=== PATIENT | female | born 1935 | race Caucasian/White ===

== ENCOUNTER 2017-02-16 19:05 | Emergency (ER) | payer MEDICARE, BC ==
[2017-02-16 21:00] VITALS: BP 126/82
--- NOTE | 2017-02-16 21:21 | EDM.PDOC ---
[id number]: FELL, RT HIP PAIN SWOLLEN, [id number] Time Seen by Provider: 02/16/17 19:35 Source of Information: Reports: Patient, Family, Assisted Records History Limitations: Reports: No Limitations - History of Present Illness INITIAL COMMENTS - FREE TEXT/NARRATIVE: ED with c/o low back and right hip pain for approximately 2 weeks. Clinic appointment this week but Nurse at [facility] noted swelling to right hip tonight. Son notes failing status past few months, generalized weakness. Lower Back Pain Score (Numeric/FACES): 2 - Related Data Allergies Allergy/AdvReac Type Severity Reaction Status Date / Time No Known Allergies Allergy Verified 02/23/17 19:08 Home Meds: Home Meds Anastrozole 1 mg PO DAILY 02/07/16 [History] OLANZapine [ZyPREXA] 2.5 mg PO BEDTIME 02/07/16 [History] Carbidopa/Levodopa [Carbidopa-Levo 25-100 MG ODT] 1 tab PO TID 02/16/17 [History ] Acetaminophen 500 mg PO QID PRN 02/23/17 [History] Aspirin [Halfprin] 81 mg PO DAILY 02/23/17 [History] Past Medical History Cardiovascular History: Reports: Afib, Hypertension Genitourinary History: Reports: Urinary Incontinence Musculoskeletal History: Reports: Osteoporosis Neurological History: Reports: Other (See Below) Other Neuro History: Tarrdive dyskinesia Psychiatric History: Reports: Schizophrenia Oncologic (Cancer) History: Reports: Breast Dermatologic History: Reports: Other (See Below) Other Dermatologic History: 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 s/p right mastectomy - Infectious Disease History Infectious Disease History: Reports: Chicken Pox, Measles, Mumps, Pertussis ( Whooping Cough) - Past Surgical History HEENT Surgical History: Reports: Adenoidectomy, Tonsillectomy Musculoskeletal Surgical History: Reports: Hip Replacement Oncologic Surgical History: Reports: Mastectomy, Other (See Below) Social & Family History - Family History Family Medical History: Noncontributory - Tobacco Use Smoking Status *Q: Never Smoker Second Hand Smoke Exposure: No - Caffeine Use Caffeine Use: Reports: None - Recreational Drug Use Recreational Drug Use: No ED ROS GENERAL - Review of Systems Review Of Systems: See Below Constitutional: Reports: No Symptoms HEENT: Reports: No Symptoms Respiratory: Reports: No Symptoms Cardiovascular: Reports: No Symptoms GI/Abdominal: Reports: No Symptoms Musculoskeletal: Reports: Back Pain, Joint Pain (right hip) Skin: Reports: No Symptoms Neurological: Reports: No Symptoms (declining health person), Weakness ED EXAM,LOWER BACK PAIN/INJURY - Physical Exam Exam: See Below Exam Limited By: No Limitations General Appearance: Alert, Mild Distress (with movment and weight bearing), Thin Eye Exam: Bilateral Eye: Normal Inspection Ears: Normal External Exam Nose: Normal Inspection Throat/Mouth: Normal Inspection Head: Atraumatic, Normocephalic Respiratory/Chest: No Respiratory Distress, Decreased Breath Sounds Cardiovascular: Normal Peripheral Pulses GI/Abdominal: Normal Bowel Sounds, Soft, Non-Tender Back Exam: Normal Inspection Extremities: Other (no bruising or deformity to right hip well healed surgical scar from prior replacement). No: Joint Swelling, Limited Range of Motion Neurological: Alert, Oriented x 3, Difficulty Walking, Other (upper extremity tremor, hx parkinson's, responses slow) Psychiatric: Normal Affect, Normal Mood Skin Exam: Warm, Dry, Intact, Normal Color Course - Vital Signs Last Recorded V/S: Last Vital Signs Temp 98.2 F 02/16/17 20:59 Pulse 83 02/16/17 20:59 Resp 18 02/16/17 20:59 BP 126/82 02/16/17 20:59 Pulse Ox 96 02/16/17 20:59 - Radiology Interpretation Free Text/Narrative:: Right hip no acute fracture, THoraco-lumbar compression fractures, undetermined age Departure - Departure Time of Disposition: 21:17 Disposition: DC/Tfer to [facility] [place] [facility] Condition: Fair Clinical Impression: Right hip pain - Discharge Information Referrals: PCP,None [Primary Care Provider] - Forms: ED Department Discharge Additional Instructions: Resume prior detention orders follow up with scheduled appointment, Xrays negative for hip pathology, further eval and management of hip pain and weakness
== END 2017-02-16 21:25 ==
LOC: DL.ED 19:05
DX: M25.551 Pain in right hip (principal); I48.91 Unspecified atrial fibrillation; I10 Essential (primary) hypertension; M81.0 Age-related osteoporosis without current pathological fracture; Z90.49 Acquired absence of other specified parts of digestive tract; Z79.899 Other long term (current) drug therapy; Z98.890 Other specified postprocedural states; Z96.649 Presence of unspecified artificial hip joint
CPT/HCPCS: 72100; 99283

== ENCOUNTER 2017-02-20 16:01 | Observation (INO) | payer MEDICARE, BC ==
[2017-02-20] MEDS ORDERED: Sodium Chloride 0.9% 10 ML Syringe FLUSH PRN (16:43)
--- NOTE | 2017-02-20 17:28 | PCM.HP ---
H&P History of Present Illness - General Date of Service: 02/20/17 Admit Problem/Dx: Admission Diagnosis/Problem Admission Diagnosis/Problem Weakness Source of Information: Patient, Family (son) - History of Present Illness Initial Comments - Free Text/Narative: the patient is an 82-year-old lady who has a history of Parkinson's disease. She has been living in an assisted living facility. She has been walking with a walker She has had at least 2 episodes of falls in the past 2 weeks. One of them was while outside with the son. Another fall happened today. the patient has been getting weaker in the past few weeks. it appeared that she cannot live safely in an assisted living environment anymore. After the first fall the patient had an ER visit where there was no hip or pelvic fracture noted. There was a hematoma noted which apparently has been improving. The patient denies chest pain, shortness of breath. no urinary burning, no fever or chills. - Related Data Allergies/Adverse Reactions: Allergies Allergy/AdvReac Type Severity Reaction Status Date / Time No Known Allergies Allergy Verified 02/20/17 16:59 Home Medications: Home Meds Anastrozole 1 mg PO DAILY 02/07/16 [History] OLANZapine [ZyPREXA] 2.5 mg PO BEDTIME 02/07/16 [History] Carbidopa/Levodopa [Carbidopa-Levo 25-100 MG ODT] 1 tab PO TID 02/16/17 [History ] Past Medical History Cardiovascular History: Reports: Afib, Hypertension Genitourinary History: Reports: Urinary Incontinence Musculoskeletal History: Reports: Osteoporosis Neurological History: Reports: Other (See Below) Other Neuro History: Tarrdive dyskinesia Psychiatric History: Reports: Schizophrenia Oncologic (Cancer) History: Reports: Breast Dermatologic History: Reports: Other (See Below) Other Dermatologic History: 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 s/p right mastectomy - Infectious Disease History Infectious Disease History: Reports: Chicken Pox, Measles, Mumps, Pertussis ( Whooping Cough) - Past Surgical History HEENT Surgical History: Reports: Adenoidectomy, Tonsillectomy Musculoskeletal Surgical History: Reports: Hip Replacement Oncologic Surgical History: Reports: Mastectomy, Other (See Below) Social & Family History - Family History Family Medical History: Noncontributory - Tobacco Use Smoking Status *Q: Never Smoker Second Hand Smoke Exposure: No - Caffeine Use Caffeine Use: Reports: None - Recreational Drug Use Recreational Drug Use: No H&P Review of Systems - Review of Systems: Review Of Systems: See Below General: Denies: Fever Pulmonary: Denies: Shortness of Breath Cardiovascular: Denies: Chest Pain Gastrointestinal: Denies: Abdominal Pain Genitourinary: Denies: Dysuria Musculoskeletal: Reports: Other (complaining of left hip pain, low back pain in the mid area. The pain is worse with movements). Denies: Neck Pain Exam - Exam Exam: See Below - Vital Signs Weight: 39.916 kg - Exam General: Alert, Oriented (to place and person), Other (cachectic) Neck: Supple Lungs: Clear to Auscultation, Normal Respiratory Effort Cardiovascular: Regular Rate, Regular Rhythm GI/Abdominal Exam: Normal Bowel Sounds, Soft, Non-Tender Back Exam: Paraspinal Tenderness, Other (low back tenderness) Extremities: No Pedal Edema Skin: Warm, Dry Neurological: Other (tremor) Neuro Extensive - Mental Status: Alert Psychiatric: Alert, Normal Affect, Normal Mood - Patient Data Lab Results Last 24 hrs: Laboratory Results - last 24 hr 02/20/17 Range/Units 17:05 WBC 4.8 L (5.0-10.0) 10^3/uL RBC 3.53 L (4.2-5.4) 10^6/uL Hgb 10.6 L (12.0-16.0) g/dL Hct 33.4 L (37.0-47.0) % MCV 94.6 (80-100) fL MCH 30.0 (27.0-34.0) pg MCHC 31.7 L (33.0-35.0) g/dL Plt Count 214 (150-450) 10^3/uL Neut % (Auto) 79.7 H (42.2-75.2) % Lymph % (Auto) 10.1 L (20.5-50.1) % [place] % (Auto) 9.0 H (2-8) % Eos % (Auto) 0.8 L (1.0-3.0) % Baso % (Auto) 0.4 (0.0-1.0) % Result Diagrams: 02/20/17 17:05 *Q Meaningful Use (ADM) - VTE *Q VTE Criteria *Q: - Stroke *Q Stroke Criteria *Q: - AMI *Q AMI Criteria *Q: - Problem List (1) Weakness SNOMED Code(s): 88316761 ICD Code: R53.1 - WEAKNESS Status: Acute Current Visit: Yes (2) Parkinsons disease SNOMED Code(s): 82805216 ICD Code: G20 - PARKINSON'S DISEASE Status: Acute Current Visit: Yes Problem List Initiated/Reviewed/Updated: Yes Orders Last 24hrs: Active Orders 24 hr Category Date Time Status Patient Status [ADT] Routine ADT 02/20/17 16:44 Active Antiembolic Devices [RC] PER UNIT ROUTINE Care 02/20/17 16:46 Active Oxygen Therapy [RC] PRN Care 02/20/17 16:44 Active Peripheral IV Care [RC] . DIRECTED Care 02/20/17 16:46 Active Up With Assistance [RC] ASDIRECTED Care 02/20/17 16:43 Active VTE/DVT Education [RC] PER UNIT ROUTINE Care 02/20/17 16:44 Active Vital Signs [RC] Q4H Care 02/20/17 16:44 Active OT Evaluation and Treatment [CONS] Routine Cons 02/20/17 16:51 Active PT Evaluation and Treatment [CONS] Routine Cons 02/20/17 16:51 Active Pureed Diet [DIET] Diet 02/20/17 Breakfast Ordered Hip Min 2V w Pelvis Bi [CR] Routine Exams 02/20/17 17:25 Ordered BASIC METABOLIC PANEL,BMP [CHEM] AM Lab 02/21/17 05:15 Ordered BASIC METABOLIC PANEL,BMP [CHEM] Routine Lab 02/20/17 17:05 Received CBC WITH AUTO DIFF [HEME] AM Lab 02/21/17 05:15 Ordered UA W/MICROSCOPIC [URIN] Routine Lab 02/20/17 16:51 Uncollected Acetaminophen [Tylenol] Med 02/20/17 16:43 Active 650 mg PO Q4H PRN Anastrozole [Anastrozole] Med 02/21/17 09:00 Ordered 1 mg PO DAILY Carbidopa/Levodopa [Carbidopa-Levo 25-100 MG ODT] Med 02/20/17 21:00 Ordered 1 tab PO TID Heparin Sodium Med 02/20/17 22:00 Active 5,000 units SUBCUT Q8HR OLANZapine [ZyPREXA] Med 02/20/17 21:00 Ordered 2.5 mg PO BEDTIME Sodium Chloride 0.9% [Saline Flush] Med 02/20/17 16:43 Active 10 ml FLUSH ASDIRECTED PRN Antiembolic Hose [OM.PC] Per Unit Routine Oth 02/20/17 16:45 Ordered Peripheral IV Insertion Adult [OM.PC] Routine Oth 02/20/17 16:43 Ordered Saline Lock Insert [OM.PC] Routine Oth 02/20/17 16:43 Ordered Resuscitation Status Routine Resus Stat 02/20/17 16:43 Ordered Medication Orders Acetaminophen (Tylenol) 650 mg PO Q4H PRN PRN Reason: Pain (Mild 1-3)/fever Heparin Sodium (Porcine) (Heparin Sodium) 5,000 units SUBCUT Q8HR BRIAN Non-Formulary Medication (Anastrozole [Anastrozole]) 1 mg PO DAILY BRIAN Non-Formulary Medication (Carbidopa/Levodopa [Carbidopa-Levo 25-100 Mg Odt]) 1 tab PO TID BRIAN Non-Formulary Medication (Olanzapine [Zyprexa]) 2.5 mg PO BEDTIME BRIAN Sodium Chloride (Saline Flush) 10 ml FLUSH ASDIRECTED PRN PRN Reason: Keep Vein Open Assessment/Plan Comment:: the patient is an 82-year-old lady with a history of Parkinson's disease who is normally walking with a walker, lives in an assisted living facility The patient presented with multiple episodes of falling, increasing weakness It does not appear that the patient is safe living independently in an assisted living facility at this point. We will do a workup to evaluate for reversible causes of weakness and progressive and unstable gait It was felt that there might be a orthostatic component. We will hold the patient's metoprolol We will check electrolytes, check for anemia, obtain x-ray of the bilateral hip and pelvis to rule out fracture. Continue treatment for Parkinson's disease with Sinemet History of breast cancer continue arimidex The patient does not appear to have a focal motor or sensory deficit, acute or subacute stroke is less likely. Will have PT OT evaluation and treatment DVT prophylaxis with subcutaneous heparin discussed with Dr. Valentin
[2017-02-20 17:38] LABS: CHLORIDE,CL 105 mmol/L (101-111); SODIUM,NA 138 mmol/L (135-145)
[2017-02-20] MEDS: OLANZapine 5 MG Tab PO SCH (20:46)
[2017-02-20] MEDS: Carbidopa/Levodopa 25-100 MG Tab PO SCH (20:46)
[2017-02-20] MEDS: Acetaminophen 325 MG Tab PO PRN (20:47)
[2017-02-20] MEDS: Heparin Sodium 5,000 Units/ML Vial SUBCUT SCH (22:03)
[2017-02-21] MEDS: Acetaminophen 325 MG Tab PO PRN ×2 (06:06→11:19)
[2017-02-21] MEDS: Heparin Sodium 5,000 Units/ML Vial SUBCUT SCH ×3 (06:15→22:10)
[2017-02-21 06:56] LABS: CHLORIDE,CL 105 mmol/L (101-111); SODIUM,NA 140 mmol/L (135-145)
[2017-02-21] MEDS: ANASTROZOLE 1 MG PO SCH (09:00)
[2017-02-21] MEDS: Carbidopa/Levodopa 25-100 MG Tab PO SCH ×3 (09:00→20:20)
--- NOTE | 2017-02-21 10:42 | PCM.PN ---
- General Info Date of Service: 02/21/17 Admission Dx/Problem (Free Text): Admission Diagnosis/Problem Admission Diagnosis/Problem Weakness Subjective Update: Remained stable overnight. Has been eating this morning. Continues to have a moderate pain in the low back, left hip. She has not been out of bed yet. No chest pain, no abdominal pain. Functional Status: Reports: Pain Controlled - Review of Systems General: Denies: Fever Pulmonary: Denies: Shortness of Breath Cardiovascular: Denies: Chest Pain Gastrointestinal: Denies: Abdominal Pain Neurological: Denies: Confusion - Patient Data Vitals - Most Recent: Last Vital Signs Temp 36.5 C 02/21/17 08:00 Pulse 68 02/21/17 08:00 Resp 20 02/21/17 08:00 BP 123/65 02/21/17 08:00 Pulse Ox 95 02/21/17 08:00 Weight - Most Recent: 39.916 kg I&O - Last 24 Hours: Intake & Output 02/20/17 02/21/17 02/21/17 22:59 06:59 14:59 Intake Total 240 Output Total 400 400 Balance -160 -400 Lab Results Last 24 Hours: Laboratory Results - last 24 hr 02/20/17 02/20/17 02/20/17 Range/Units 17:05 17:05 19:10 WBC 4.8 L (5.0-10.0) 10^3/uL RBC 3.53 L (4.2-5.4) 10^6/uL Hgb 10.6 L (12.0-16.0) g/dL Hct 33.4 L (37.0-47.0) % MCV 94.6 (80-100) fL MCH 30.0 (27.0-34.0) pg MCHC 31.7 L (33.0-35.0) g/dL Plt Count 214 (150-450) 10^3/uL Neut % (Auto) 79.7 H (42.2-75.2) % Lymph % (Auto) 10.1 L (20.5-50.1) % [place] % (Auto) 9.0 H (2-8) % Eos % (Auto) 0.8 L (1.0-3.0) % Baso % (Auto) 0.4 (0.0-1.0) % Sodium 138 (135-145) mmol/L Potassium 4.5 (3.6-5.0) mmol/L Chloride 105 (101-111) mmol/L Carbon Dioxide 26.0 (21.0-31.0) mmol/L Anion Gap 11.5 BUN 23 H (7-18) mg/dL Creatinine 0.6 (0.6-1.3) mg/dL Est Cr Clr Drug Dosing 46.34 mL/min Estimated GFR (MDRD) > 60 Glucose 93 (74-105) mg/dL Calcium 9.0 (8.4-10.2) mg/dl Urine Color Dark yellow (YELLOW) Urine Appearance Slightly cloudy (CLEAR) Urine pH 6.5 (5.0-9.0) Ur Specific [place] 1.015 (1.005-1.030) Urine Protein Negative (NEGATIVE) Urine Glucose (UA) Negative (NEGATIVE) Urine Ketones 15 H (NEGATIVE) Urine Occult Blood Trace-intact H (NEGATIVE) Urine Nitrite Negative (NEGATIVE) Urine Bilirubin Negative (NEGATIVE) Urine Urobilinogen 0.2 (0.2-1.0) mg/dL Ur Leukocyte Esterase Negative (NEGATIVE) Urine RBC 5-10 H /HPF Urine WBC 0-5 (0-5/HPF) /HPF Ur Epithelial Cells Few /HPF Amorphous Sediment Rare (0/HPF) /HPF Urine Bacteria Rare (0-FEW/HPF) /HPF Urine Mucus Rare /LPF 02/21/17 02/21/17 Range/Units 06:23 06:23 WBC 3.9 L (5.0-10.0) 10^3/uL RBC 3.40 L (4.2-5.4) 10^6/uL Hgb 10.2 L (12.0-16.0) g/dL Hct 32.5 L (37.0-47.0) % MCV 95.6 (80-100) fL MCH 30.0 (27.0-34.0) pg MCHC 31.4 L (33.0-35.0) g/dL Plt Count 191 (150-450) 10^3/uL Neut % (Auto) 70.9 (42.2-75.2) % Lymph % (Auto) 14.9 L (20.5-50.1) % [place] % (Auto) 11.1 H (2-8) % Eos % (Auto) 2.3 (1.0-3.0) % Baso % (Auto) 0.8 (0.0-1.0) % Sodium 140 (135-145) mmol/L Potassium 4.2 (3.6-5.0) mmol/L Chloride 105 (101-111) mmol/L Carbon Dioxide 27.0 (21.0-31.0) mmol/L Anion Gap 12.2 BUN 20 H (7-18) mg/dL Creatinine 0.5 L (0.6-1.3) mg/dL Est Cr Clr Drug Dosing 55.61 mL/min Estimated GFR (MDRD) > 60 Glucose 80 (74-105) mg/dL Calcium 8.5 (8.4-10.2) mg/dl Urine Color (YELLOW) Urine Appearance (CLEAR) Urine pH (5.0-9.0) Ur Specific [place] (1.005-1.030) Urine Protein (NEGATIVE) Urine Glucose (UA) (NEGATIVE) Urine Ketones (NEGATIVE) Urine Occult Blood (NEGATIVE) Urine Nitrite (NEGATIVE) Urine Bilirubin (NEGATIVE) Urine Urobilinogen (0.2-1.0) mg/dL Ur Leukocyte Esterase (NEGATIVE) Urine RBC /HPF Urine WBC (0-5/HPF) /HPF Ur Epithelial Cells /HPF Amorphous Sediment (0/HPF) /HPF Urine Bacteria (0-FEW/HPF) /HPF Urine Mucus /LPF Med Orders - Current: Current Medications Acetaminophen (Tylenol) 650 mg PO Q4H PRN PRN Reason: Pain (Mild 1-3)/fever Last Admin: 02/21/17 06:06 Dose: 650 mg Carbidopa/Levodopa (Sinemet 25-100 Mg) 1 tab PO TID [facility] Last Admin: 02/20/17 20:46 Dose: 1 tab Heparin Sodium (Porcine) (Heparin Sodium) 5,000 units SUBCUT Q8HR [facility] Last Admin: 02/21/17 06:15 Dose: Not Given Anastrozole 1 Mg 1 mg PO DAILY [facility] Olanzapine (Zyprexa) 2.5 mg PO BEDTIME [facility] Last Admin: 02/20/17 20:46 Dose: 2.5 mg Sodium Chloride (Saline Flush) 10 ml FLUSH ASDIRECTED PRN PRN Reason: Keep Vein Open - Exam General: Alert, Oriented, Other (cachectic) Neck: Supple Lungs: Clear to Auscultation, Normal Respiratory Effort Cardiovascular: Regular Rate, Regular Rhythm GI/Abdominal Exam: Normal Bowel Sounds Extremities: No Pedal Edema Neurological: Other (tremor) Psy/Mental Status: Alert, Normal Affect, Normal Mood - Problem List & Annotations (1) Weakness SNOMED Code(s): 67821720 Code(s): R53.1 - WEAKNESS Status: Acute Current Visit: Yes (2) Parkinsons disease SNOMED Code(s): 33245092 Code(s): G20 - PARKINSON'S DISEASE Status: Acute Current Visit: Yes - Problem List Review Problem List Initiated/Reviewed/Updated: Yes - My Orders Last 24 Hours: My Active Orders 02/20/17 16:43 Up With Assistance [RC] ASDIRECTED Acetaminophen [Tylenol] 650 mg PO Q4H PRN Sodium Chloride 0.9% [Saline Flush] 10 ml FLUSH ASDIRECTED PRN Peripheral IV Insertion Adult [OM.PC] Routine Saline Lock Insert [OM.PC] Routine 02/20/17 16:44 Patient Status [ADT] Routine Oxygen Therapy [RC] PRN VTE/DVT Education [RC] PER UNIT ROUTINE Vital Signs [RC] Q4H 02/20/17 16:45 Antiembolic Hose [OM.PC] Per Unit Routine 02/20/17 16:46 Antiembolic Devices [RC] PER UNIT ROUTINE 02/20/17 16:51 OT Evaluation and Treatment [CONS] Routine PT Evaluation and Treatment [CONS] Routine 02/20/17 18:35 Resuscitation Status Routine 02/20/17 21:00 Carbidopa/Levodopa [Sinemet 25-100 mg] 1 tab PO TID OLANZapine [ZyPREXA] 2.5 mg PO BEDTIME 02/20/17 22:00 Heparin Sodium 5,000 units SUBCUT Q8HR 02/21/17 09:00 Anastrozole [Anastrozole] 1 mg PO DAILY - Plan Plan:: the patient is an 82-year-old lady with a history of Parkinson's disease who is normally walking with a walker, lives in an assisted living facility The patient presented with multiple episodes of falling, increasing weakness It does not appear that the patient is safe living independently in an assisted living facility at this point. It was felt that there might be a orthostatic component. We will hold the patient's metoprolol x-ray of the bilateral hip, pelvis and L spine showed no fracture. Continue treatment for Parkinson's disease with Sinemet History of breast cancer continue arimidex Will have PT OT evaluation and treatment DVT prophylaxis with subcutaneous heparin
[2017-02-21] MEDS: Acetaminophen Soln 160 MG/5 ML UD Cup PO PRN (20:20)
[2017-02-21] MEDS: OLANZapine 5 MG Tab PO SCH (20:20)
[2017-02-21] MEDS: Polyethylene Glycol 3350 Powder 17 GM Packet PO SCH (20:21)
[2017-02-22] MEDS: Heparin Sodium 5,000 Units/ML Vial SUBCUT SCH ×3 (05:50→21:48)
[2017-02-22] MEDS: Carbidopa/Levodopa 25-100 MG Tab PO SCH ×3 (09:15→21:45)
[2017-02-22] MEDS: ANASTROZOLE 1 MG PO SCH (09:16)
[2017-02-22] MEDS: Polyethylene Glycol 3350 Powder 17 GM Packet PO SCH (10:20)
--- NOTE | 2017-02-22 11:02 | PCM.PN ---
- General Info Date of Service: 02/22/17 Admission Dx/Problem (Free Text): Admission Diagnosis/Problem Admission Diagnosis/Problem Weakness Subjective Update: Remained stable overnight. Continues to have a moderate pain in left hip. No chest pain, no abdominal pain. Functional Status: Reports: Pain Controlled - Review of Systems General: Denies: Fever Pulmonary: Denies: Shortness of Breath Cardiovascular: Denies: Chest Pain, Edema Genitourinary: Denies: Dysuria - Patient Data Vitals - Most Recent: Last Vital Signs Temp 37.1 C 02/22/17 08:29 Pulse 88 02/22/17 08:29 Resp 20 02/22/17 08:29 BP 132/61 02/22/17 08:29 Pulse Ox 98 02/22/17 08:29 Weight - Most Recent: 39.916 kg I&O - Last 24 Hours: Intake & Output 02/21/17 02/22/17 02/22/17 22:59 06:59 14:59 Intake Total 240 Output Total 200 200 Balance 40 -200 Med Orders - Current: Current Medications Acetaminophen (Tylenol) 650 mg PO Q4H PRN PRN Reason: Pain (Mild 1-3)/fever Last Admin: 02/21/17 11:19 Dose: 650 mg Acetaminophen (Tylenol Solution) 640 mg PO Q4H PRN PRN Reason: PAIN Last Admin: 02/21/17 20:20 Dose: 640 mg Carbidopa/Levodopa (Sinemet 25-100 Mg) 1 tab PO TID [facility] Last Admin: 02/22/17 09:15 Dose: 1 tab Heparin Sodium (Porcine) (Heparin Sodium) 5,000 units SUBCUT Q8HR [facility] Last Admin: 02/22/17 05:50 Dose: Not Given Anastrozole 1 Mg 1 mg PO DAILY [facility] Last Admin: 02/22/17 09:16 Dose: 1 mg Olanzapine (Zyprexa) 2.5 mg PO BEDTIME [facility] Last Admin: 02/21/17 20:20 Dose: 2.5 mg Polyethylene Glycol (Miralax) 17 gm PO DAILY [facility] Last Admin: 02/22/17 10:20 Dose: Not Given Discontinued Medications Sodium Chloride (Saline Flush) 10 ml FLUSH ASDIRECTED PRN PRN Reason: Keep Vein Open Last Admin: 02/21/17 20:26 Dose: 10 ml - Exam General: Alert, Oriented Neck: Supple Lungs: Clear to Auscultation, Normal Respiratory Effort Cardiovascular: Regular Rate, Regular Rhythm GI/Abdominal Exam: Normal Bowel Sounds, Soft, Non-Tender Extremities: No Pedal Edema Neurological: Other (tremor) Psy/Mental Status: Alert, Normal Affect, Normal Mood - Problem List & Annotations (1) Weakness SNOMED Code(s): 25388621 Code(s): R53.1 - WEAKNESS Status: Acute Current Visit: Yes (2) Parkinsons disease SNOMED Code(s): 88458145 Code(s): G20 - PARKINSON'S DISEASE Status: Acute Current Visit: Yes - Problem List Review Problem List Initiated/Reviewed/Updated: Yes - My Orders Last 24 Hours: My Active Orders 02/21/17 18:13 Acetaminophen [Tylenol Solution] 640 mg PO Q4H PRN 02/21/17 21:00 Polyethylene Glycol 3350 [MiraLAX] 17 gm PO DAILY 02/22/17 08:51 Discontinue Saline Lock [Peripheral IV Discontinue] [OM.PC] Routine - Plan Plan:: the patient is an 82-year-old lady with a history of Parkinson's disease who is normally walking with a walker, lives in an assisted living facility The patient presented with multiple episodes of falling, increasing weakness It does not appear that the patient is safe living independently in an assisted living facility at this point. It was felt that there might be a orthostatic component. We will hold the patient's metoprolol x-ray of the bilateral hip, pelvis and L spine showed no fracture. Pain is likely due to bruise, arthritis Will have PT OT evaluation and treatment Continue treatment for Parkinson's disease with Sinemet History of breast cancer continue arimidex DVT prophylaxis with subcutaneous heparin
[2017-02-22] MEDS: OLANZapine 5 MG Tab PO SCH (21:45)
[2017-02-23] MEDS: Heparin Sodium 5,000 Units/ML Vial SUBCUT SCH ×2 (05:40→15:00)
[2017-02-23] MEDS: Polyethylene Glycol 3350 Powder 17 GM Packet PO SCH (08:53)
[2017-02-23] MEDS: Acetaminophen Soln 160 MG/5 ML UD Cup PO PRN (08:53)
[2017-02-23] MEDS: Carbidopa/Levodopa 25-100 MG Tab PO SCH ×2 (08:53→15:00)
[2017-02-23] MEDS: ANASTROZOLE 1 MG PO SCH (09:00)
--- NOTE | 2017-02-23 11:41 | PCM.PN ---
- General Info Date of Service: 02/23/17 Admission Dx/Problem (Free Text): Admission Diagnosis/Problem Admission Diagnosis/Problem Weakness Subjective Update: Remained stable. pain is improving. No chest pain, no abdominal pain. - Review of Systems General: Reports: Weakness. Denies: Fever Pulmonary: Denies: Shortness of Breath Cardiovascular: Denies: Chest Pain Gastrointestinal: Denies: Abdominal Pain Genitourinary: Denies: Dysuria - Patient Data Vitals - Most Recent: Last Vital Signs Temp 36.4 C 02/23/17 11:00 Pulse 79 02/23/17 11:00 Resp 18 02/23/17 11:00 BP 89/51 L 02/23/17 11:00 Pulse Ox 97 02/23/17 11:00 Weight - Most Recent: 39.916 kg I&O - Last 24 Hours: Intake & Output 02/22/17 02/23/17 02/23/17 22:59 06:59 14:59 Intake Total 150 Balance 150 Med Orders - Current: Current Medications Acetaminophen (Tylenol) 650 mg PO Q4H PRN PRN Reason: Pain (Mild 1-3)/fever Last Admin: 02/21/17 11:19 Dose: 650 mg Acetaminophen (Tylenol Solution) 640 mg PO Q4H PRN PRN Reason: PAIN Last Admin: 02/23/17 08:53 Dose: 640 mg Carbidopa/Levodopa (Sinemet 25-100 Mg) 1 tab PO TID [facility] Last Admin: 02/23/17 08:53 Dose: 1 tab Heparin Sodium (Porcine) (Heparin Sodium) 5,000 units SUBCUT Q8HR [facility] Last Admin: 02/23/17 05:40 Dose: Not Given Anastrozole 1 Mg 1 mg PO DAILY [facility] Last Admin: 02/23/17 09:00 Dose: 1 mg Olanzapine (Zyprexa) 2.5 mg PO BEDTIME [facility] Last Admin: 02/22/17 21:45 Dose: 2.5 mg Polyethylene Glycol (Miralax) 17 gm PO DAILY [facility] Last Admin: 02/23/17 08:53 Dose: 17 gm Discontinued Medications Sodium Chloride (Saline Flush) 10 ml FLUSH ASDIRECTED PRN PRN Reason: Keep Vein Open Last Admin: 02/21/17 20:26 Dose: 10 ml - Exam Quality Assessment: No: Supplemental Oxygen General: Alert, Oriented Neck: Supple Lungs: Clear to Auscultation, Normal Respiratory Effort Cardiovascular: Regular Rate Extremities: No Pedal Edema Neurological: Other (tremor) Psy/Mental Status: Alert, Normal Affect, Normal Mood - Problem List & Annotations (1) Weakness SNOMED Code(s): 47648065 Code(s): R53.1 - WEAKNESS Status: Acute Current Visit: Yes (2) Parkinsons disease SNOMED Code(s): 46839482 Code(s): G20 - PARKINSON'S DISEASE Status: Acute Current Visit: Yes - Problem List Review Problem List Initiated/Reviewed/Updated: Yes - Plan Plan:: the patient is an 82-year-old lady with a history of Parkinson's disease who is normally walking with a walker, lives in an assisted living facility The patient presented with multiple episodes of falling, increased weakness It does not appear that the patient is safe living independently in an assisted living facility at this point. It was felt that there might be a orthostatic component. We will hold the patient's metoprolol x-ray of the bilateral hip, pelvis and L spine showed no fracture. Pain is likely due to bruise, arthritis Will have PT OT evaluation and treatment today. d/w sw nd son - eval for swing bed or NH Continue treatment for Parkinson's disease with Sinemet History of breast cancer continue arimidex DVT prophylaxis with subcutaneous heparin
--- NOTE | 2017-02-23 16:13 | PCM.DCSUM1 ---
Discharge Summary - Hospital Course Free Text/Narrative:: the patient is an 82-year-old lady with a history of Parkinson's disease who is normally walking with a walker, lives in an assisted living facility The patient presented with multiple episodes of falling, increased weakness It does not appear that the patient is safe living independently in an assisted living facility at this point. It was felt that there might be a orthostatic component. We will hold the patient's metoprolol x-ray of the bilateral hip, pelvis and L spine showed no fracture. Pain is likely due to bruise, arthritis had evaluation by PT OT was felt to be appropriate for further therapy in a swing bed setting Continue treatment for Parkinson's disease with Sinemet History of breast cancer continue arimidex - Discharge Data Discharge Date: 02/23/17 Discharge Disposition: DC/Tfer W/I Hosp To Swing Condition: Good - Discharge Diagnosis/Problem(s) (1) Weakness SNOMED Code(s): 04063074 ICD Code: R53.1 - WEAKNESS Status: Acute Current Visit: Yes (2) Parkinsons disease SNOMED Code(s): 22769466 ICD Code: G20 - PARKINSON'S DISEASE Status: Acute Current Visit: Yes - Patient Summary/Data Consults: Consultations 02/20/17 16:51 OT Evaluation and Treatment [CONS] Routine PT Evaluation and Treatment [CONS] Routine - Patient Instructions Diet: Usual Diet as Tolerated Activity: As Tolerated - Discharge Plan Home Medications: Home Meds Anastrozole 1 mg PO DAILY 02/07/16 [History] OLANZapine [ZyPREXA] 2.5 mg PO BEDTIME 02/07/16 [History] Carbidopa/Levodopa [Carbidopa-Levo 25-100 MG ODT] 1 tab PO TID 02/16/17 [History ] - Discharge Summary/Plan Comment DC Time >30 min.: No - Patient Data Vitals - Most Recent: Last Vital Signs Temp 36.4 C 02/23/17 11:00 Pulse 79 02/23/17 11:00 Resp 18 02/23/17 11:00 BP 89/51 L 02/23/17 11:00 Pulse Ox 97 02/23/17 11:00 Weight - Most Recent: 39.916 kg I&O - Last 24 hours: Intake & Output 08/07/17 08/07/17 08/07/17 06:59 14:59 22:59 Intake Total 150 Balance 150 Med Orders - Current: Current Medications Acetaminophen (Tylenol) 650 mg PO Q4H PRN PRN Reason: Pain (Mild 1-3)/fever Last Admin: 02/21/17 11:19 Dose: 650 mg Acetaminophen (Tylenol Solution) 640 mg PO Q4H PRN PRN Reason: PAIN Last Admin: 02/23/17 08:53 Dose: 640 mg Carbidopa/Levodopa (Sinemet 25-100 Mg) 1 tab PO TID [facility] Last Admin: 02/23/17 15:00 Dose: 1 tab Heparin Sodium (Porcine) (Heparin Sodium) 5,000 units SUBCUT Q8HR [facility] Last Admin: 02/23/17 15:00 Dose: Not Given Anastrozole 1 Mg 1 mg PO DAILY [facility] Last Admin: 02/23/17 09:00 Dose: 1 mg Olanzapine (Zyprexa) 2.5 mg PO BEDTIME [facility] Last Admin: 02/22/17 21:45 Dose: 2.5 mg Polyethylene Glycol (Miralax) 17 gm PO DAILY [facility] Last Admin: 02/23/17 08:53 Dose: 17 gm Discontinued Medications Sodium Chloride (Saline Flush) 10 ml FLUSH ASDIRECTED PRN PRN Reason: Keep Vein Open Last Admin: 02/21/17 20:26 Dose: 10 ml *Q Meaningful Use (DIS) - VTE *Q VTE Criteria *Q: - Stroke *Q Stroke Criteria *Q: - AMI *Q AMI Criteria *Q:
[2017-02-23 17:02] VITALS: BP 106/59
== END 2017-02-23 16:20 | disposition swing bed (61) ==
LOC: PREINTOOBSV 16:22 → DL.MS 16:44
PROVIDERS: ADMIT Internal Medicine; ATTEND Internal Medicine
DX: R53.1 Weakness (principal); G20 Parkinson's disease; I10 Essential (primary) hypertension; Z79.899 Other long term (current) drug therapy; Z98.890 Other specified postprocedural states; Z96.649 Presence of unspecified artificial hip joint
CPT/HCPCS: 36415; 72100; 73521; 80048; 81001; 85025; 97162; 97165; A9270; J1644; J7050; 96372; 99217; 99220; 99226; G0378; G0379

== ENCOUNTER 2017-02-23 16:20 | Inpatient (IN) | payer MEDICARE, BC ==
[2017-02-23] MEDS ORDERED: Ondansetron 4 MG Tab.DIS PO PRN (17:52)
[2017-02-23] MEDS ORDERED: Acetaminophen 325 MG Tab PO PRN (17:52)
--- NOTE | 2017-02-23 17:57 | PCM.HP ---
H&P History of Present Illness - General Date of Service: 02/23/17 Admit Problem/Dx: Admission Diagnosis/Problem Admission Diagnosis/Problem Weakness Source of Information: Patient, Family (son) - History of Present Illness Initial Comments - Free Text/Narative: the patient is an 82-year-old lady with a history of Parkinson's disease who is normally walking with a walker, lives in an assisted living facility The patient presented with multiple episodes of falling, increased weakness It does not appear that the patient is safe living independently in an assisted living facility at this point. - Related Data Allergies/Adverse Reactions: Allergies Allergy/AdvReac Type Severity Reaction Status Date / Time No Known Allergies Allergy Verified 02/20/17 16:59 Home Medications: Home Meds Anastrozole 1 mg PO DAILY 02/07/16 [History] OLANZapine [ZyPREXA] 2.5 mg PO BEDTIME 02/07/16 [History] Carbidopa/Levodopa [Carbidopa-Levo 25-100 MG ODT] 1 tab PO TID 02/16/17 [History ] Past Medical History Cardiovascular History: Reports: Afib, Hypertension Gastrointestinal History: Reports: None Genitourinary History: Reports: Urinary Incontinence Musculoskeletal History: Reports: Osteoporosis Neurological History: Reports: Other (See Below) Other Neuro History: Tarrdive dyskinesia Psychiatric History: Reports: Schizophrenia Oncologic (Cancer) History: Reports: Breast Dermatologic History: Reports: Other (See Below) Other Dermatologic History: 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 s/p right mastectomy - Infectious Disease History Infectious Disease History: Reports: Chicken Pox, Measles, Mumps, Pertussis ( Whooping Cough) - Past Surgical History HEENT Surgical History: Reports: Adenoidectomy, Tonsillectomy Musculoskeletal Surgical History: Reports: Hip Replacement Oncologic Surgical History: Reports: Mastectomy, Other (See Below) Social & Family History - Family History Family Medical History: Noncontributory - Tobacco Use Smoking Status *Q: Never Smoker Years of Tobacco use: 8 Used Tobacco, but Quit: No Second Hand Smoke Exposure: No - Caffeine Use Caffeine Use: Reports: None - Recreational Drug Use Recreational Drug Use: No H&P Review of Systems - Review of Systems: Review Of Systems: See Below General: Denies: Fever Pulmonary: Denies: Shortness of Breath Cardiovascular: Denies: Chest Pain Gastrointestinal: Denies: Abdominal Pain Genitourinary: Denies: Dysuria Exam - Exam Exam: See Below - Vital Signs Vital Signs: Last Vital Signs Temp 36.9 C 02/23/17 17:23 Pulse 66 02/23/17 17:23 Resp 20 02/23/17 17:23 BP 106/59 L 02/23/17 17:23 Pulse Ox 98 02/23/17 17:23 Weight: 39.916 kg - Exam General: Alert Lungs: Clear to Auscultation, Normal Respiratory Effort Cardiovascular: Regular Rate, Regular Rhythm GI/Abdominal Exam: Normal Bowel Sounds, Soft Neurological: Other (tremor) *Q Meaningful Use (ADM) - VTE *Q VTE Criteria *Q: - Stroke *Q Stroke Criteria *Q: - AMI *Q AMI Criteria *Q: - Problem List (1) Parkinsons disease SNOMED Code(s): 05876881 ICD Code: G20 - PARKINSON'S DISEASE Status: Acute Current Visit: No (2) Weakness SNOMED Code(s): 04236143 ICD Code: R53.1 - WEAKNESS Status: Acute Current Visit: No Problem List Initiated/Reviewed/Updated: Yes Orders Last 24hrs: Active Orders 24 hr Category Date Time Status Patient Status [ADT] Routine ADT 02/23/17 17:52 Ordered Antiembolic Devices [RC] PER UNIT ROUTINE Care 02/23/17 17:54 Ordered Dietary Supplements [RC] TIDAC Care 02/23/17 17:52 Ordered Oxygen Therapy [RC] PRN Care 02/23/17 17:52 Ordered Up With Assistance [RC] ASDIRECTED Care 02/23/17 17:52 Ordered VTE/DVT Education [RC] PER UNIT ROUTINE Care 02/23/17 17:52 Ordered Vital Signs [RC] QSHIFT Care 02/23/17 17:52 Ordered OT Evaluation and Treatment [CONS] Routine Cons 02/23/17 17:51 Ordered PT Evaluation and Treatment [CONS] Routine Cons 02/23/17 17:51 Ordered Regular Diet [DIET] Diet 02/23/17 Breakfast Ordered Acetaminophen [Tylenol] Med 02/23/17 17:52 Ordered 650 mg PO Q4H PRN Anastrozole [Anastrozole] Med 02/24/17 09:00 Ordered 1 mg PO DAILY Carbidopa/Levodopa [Carbidopa-Levo 25-100 MG ODT] Med 02/23/17 21:00 Ordered 1 tab PO TID Heparin Sodium Med 02/23/17 22:00 Ordered 5,000 units SUBCUT Q8HR OLANZapine [ZyPREXA] Med 02/23/17 21:00 Ordered 2.5 mg PO BEDTIME Ondansetron [Zofran ODT] Med 02/23/17 17:52 Ordered 4 mg PO Q6H PRN Antiembolic Hose [OM.PC] Routine Oth 02/23/17 17:52 Ordered Resuscitation Status Routine Resus Stat 02/23/17 17:52 Ordered Medication Orders Non-Formulary Medication (Anastrozole [Anastrozole]) 1 mg PO DAILY [facility] Non-Formulary Medication (Carbidopa/Levodopa [Carbidopa-Levo 25-100 Mg Odt]) 1 tab PO TID [facility] Non-Formulary Medication (Olanzapine [Zyprexa]) 2.5 mg PO BEDTIME [facility] Assessment/Plan Comment:: the patient is an 82-year-old lady with a history of Parkinson's disease who is normally walking with a walker, lives in an assisted living facility The patient presented with multiple episodes of falling, increased weakness It does not appear that the patient is safe living independently in an assisted living facility at this point. It was felt that there might be a orthostatic component. metoprolol was stopped x-ray of the bilateral hip, pelvis and L spine showed no fracture. Pain is likely due to bruise, arthritis had evaluation by PT OT was felt to be appropriate for further therapy in a swing bed setting will continue pt/ot treatment Continue treatment for Parkinson's disease with Sinemet History of breast cancer continue arimidex DVT prophylaxis with subcutaneous heparin and mobilization
[2017-02-23] MEDS ORDERED: OLANZapine 5 MG Tab PO SCH (21:00)
[2017-02-23] MEDS ORDERED: Carbidopa/Levodopa 25-100 MG Tab PO SCH (21:00)
[2017-02-23] MEDS ORDERED: OLANZAPINE 2.5 MG PO SCH (22:00)
[2017-02-23] MEDS: Heparin Sodium 5,000 Units/ML Vial SUBCUT SCH (22:20)
[2017-02-23] MEDS: [UNRECOGNIZED DRUG - OTHER] PO SCH (22:21)
[2017-02-23] MEDS: CARBIDOPA PO SCH (22:21)
[2017-02-23] MEDS: ACETAMINOPHEN 160 MG/5 ML PO PRN (22:29)
[2017-02-24] MEDS: Heparin Sodium 5,000 Units/ML Vial SUBCUT SCH ×4 (06:47→23:12)
[2017-02-24] MEDS: ANASTROZOLE 1 MG PO SCH (08:45)
[2017-02-24] MEDS: [UNRECOGNIZED DRUG - OTHER] PO SCH ×2 (08:46→14:34)
[2017-02-24] MEDS: CARBIDOPA PO SCH ×4 (08:46→22:56)
[2017-02-24] MEDS: [UNRECOGNIZED DRUG - OTHER] PO SCH ×2 (14:35→22:56)
[2017-02-24] MEDS: OLANZAPINE 2.5 MG PO SCH (22:57)
[2017-02-24] MEDS: ACETAMINOPHEN 160 MG/5 ML PO PRN (22:59)
[2017-02-25] MEDS: Heparin Sodium 5,000 Units/ML Vial SUBCUT SCH ×3 (06:50→22:28)
[2017-02-25] MEDS: ANASTROZOLE 1 MG PO SCH (09:54)
[2017-02-25] MEDS: CARBIDOPA PO SCH ×4 (09:55→22:31)
[2017-02-25] MEDS: [UNRECOGNIZED DRUG - OTHER] PO SCH ×3 (09:55→22:31)
[2017-02-25] MEDS: [UNRECOGNIZED DRUG - OTHER] PO SCH (22:30)
[2017-02-25] MEDS: OLANZAPINE 2.5 MG PO SCH (22:30)
[2017-02-26] MEDS: ACETAMINOPHEN 160 MG/5 ML PO PRN ×3 (03:33→20:53)
[2017-02-26] MEDS: Heparin Sodium 5,000 Units/ML Vial SUBCUT SCH ×3 (06:10→21:01)
[2017-02-26] MEDS: ANASTROZOLE 1 MG PO SCH (09:55)
[2017-02-26] MEDS: [UNRECOGNIZED DRUG - OTHER] PO SCH ×3 (10:06→20:53)
[2017-02-26] MEDS: CARBIDOPA PO SCH ×3 (10:06→20:53)
[2017-02-26] MEDS: OLANZAPINE 2.5 MG PO SCH (20:52)
[2017-02-27] MEDS: Heparin Sodium 5,000 Units/ML Vial SUBCUT SCH ×3 (05:08→22:23)
[2017-02-27] MEDS: ANASTROZOLE 1 MG PO SCH (09:36)
[2017-02-27] MEDS: [UNRECOGNIZED DRUG - OTHER] PO SCH ×3 (09:37→20:57)
[2017-02-27] MEDS: CARBIDOPA PO SCH ×3 (09:37→20:57)
[2017-02-27] MEDS: ACETAMINOPHEN 160 MG/5 ML PO PRN ×3 (09:39→20:57)
[2017-02-27] MEDS: OLANZAPINE 2.5 MG PO SCH (20:56)
[2017-02-28] MEDS: Heparin Sodium 5,000 Units/ML Vial SUBCUT SCH ×3 (05:58→21:27)
[2017-02-28] MEDS: ANASTROZOLE 1 MG PO SCH (08:50)
[2017-02-28] MEDS: CARBIDOPA PO SCH ×3 (08:53→21:19)
[2017-02-28] MEDS: [UNRECOGNIZED DRUG - OTHER] PO SCH ×3 (08:53→21:19)
[2017-02-28] MEDS ORDERED: POLYETHYLENE GLYCOL 17 GM PO PRN (11:32)
[2017-02-28] MEDS: OLANZAPINE 2.5 MG PO SCH (21:13)
[2017-02-28] MEDS: ACETAMINOPHEN 160 MG/5 ML PO PRN (21:24)
[2017-03-01] MEDS: Heparin Sodium 5,000 Units/ML Vial SUBCUT SCH ×3 (05:12→22:49)
[2017-03-01] MEDS: ANASTROZOLE 1 MG PO SCH (08:42)
[2017-03-01] MEDS: [UNRECOGNIZED DRUG - OTHER] PO SCH ×3 (08:43→21:09)
[2017-03-01] MEDS: CARBIDOPA PO SCH ×3 (08:43→21:09)
[2017-03-01] MEDS: OLANZAPINE 2.5 MG PO SCH (21:10)
[2017-03-01] MEDS: ACETAMINOPHEN 160 MG/5 ML PO PRN (21:11)
[2017-03-02] MEDS: Heparin Sodium 5,000 Units/ML Vial SUBCUT SCH ×2 (05:46→13:34)
[2017-03-02] MEDS: ANASTROZOLE 1 MG PO SCH (09:09)
[2017-03-02] MEDS: [UNRECOGNIZED DRUG - OTHER] PO SCH ×3 (09:11→21:00)
[2017-03-02] MEDS: CARBIDOPA PO SCH ×3 (09:11→21:00)
[2017-03-02] MEDS: OLANZAPINE 2.5 MG PO SCH (21:00)
[2017-03-02] MEDS: ACETAMINOPHEN 160 MG/5 ML PO PRN (21:02)
[2017-03-03] MEDS: Heparin Sodium 5,000 Units/ML Vial SUBCUT SCH ×4 (01:58→21:29)
[2017-03-03] MEDS: ACETAMINOPHEN 160 MG/5 ML PO PRN ×2 (04:22→21:30)
[2017-03-03] MEDS: ANASTROZOLE 1 MG PO SCH (09:23)
[2017-03-03] MEDS: CARBIDOPA PO SCH ×3 (09:23→21:28)
[2017-03-03] MEDS: [UNRECOGNIZED DRUG - OTHER] PO SCH ×3 (09:23→21:28)
[2017-03-03] MEDS: OLANZAPINE 2.5 MG PO SCH (21:28)
--- NOTE | 2017-03-04 03:58 | PN ---
DATE: 02/27/2017 SUBJECTIVE: Mrs. Carver is an 82-year-old lady, who lives at the [facility]. She has a long history of Parkinson's disease and presents with weakness and multiple falls in her apartment. She came to swing bed to work with Physical and Occupational Therapy for strengthening. Other past medical history includes atrial fibrillation, hypertension, urinary incontinence, osteoporosis, schizophrenia with tardive dyskinesia. She is status post right mastectomy with lymphedema to the right arm. X-rays taken at time of admission, showed no fractures of the hips, pelvis or spine. Her pain on presentation was most likely due to bruising and contusions. The admitting physician held the metoprolol in case it was a contributing factor to any orthostatic hypotension. Review of her clinical data shows good oral intake. She is voiding and moving her bowels. Appetite is good, and she is tolerating her diet. Vital signs have been stable. Lowest blood pressures have been with systolics in the 90s and diastolics in the 50s. Medications are reviewed. She is on heparin for VTE prophylaxis. She continues on her Sinemet as well as her medications for mood and schizophrenia. OBJECTIVE: General: She is a pleasant elderly lady, who offered no complaints. She denied any pain. No shortness of breath or chest pain. No abdominal pain. No calf or leg pain. She is sleeping and eating well. She feels that she is doing better, working with therapy. Vital Signs: Blood pressure today 110/70 and later in the day 117/66, pulse 80 and regular, respiratory rate 20 and unlabored, oxygen saturation 99% to 100% on room air, and she is afebrile. HEENT: Unremarkable. ENT was clear. Chest: Clear bilateral breath sounds. Heart: Regular rate and rhythm. Abdomen: Soft and benign. Extremities: The calves are soft and nontender. Neurologic: She is moving all her extremities. She has a very pronounced tremor due to her Parkinson's disease. Skin: She has a small sore on the left buttock. Nursing staff is caring for this on daily basis. No changes were made in her care today. She will continue to work with Physical and Occupational Therapy. [facility] /[id number] [facility]
--- NOTE | 2017-03-04 04:10 | PN ---
DATE: 03/03/2017 SUBJECTIVE: Mrs. Carver is an 82-year-old lady, who was admitted to swing bed from her apartment in [facility]. She has a history of Parkinson's disease and had fallen multiple times at home. Recent x-ray showed no fractures. She has been working with Physical and Occupational Therapy, and she feels that she is stronger. She is scheduled to be discharged to home tomorrow. Nursing staff was concerned about a lesion on the right shoulder. It was dark in appearance. Otherwise, there have been no other concerns or issues. No falls. Review of her clinical data shows good oral intake. She is eating 100% of her meals. She is voiding and moving her bowels. Vital signs have remained stable, and blood pressures are stable off her antihypertensives. On exam, she is seated in her room. Her son, El, is here and is going to take her out for the drive. She is in good spirits. After examining her, she was able to get up from the side of the bed unassisted using her walker and was able to ambulate out in to the hallway. OBJECTIVE: Vital Signs: Blood pressure 127/77, pulse 71, respiratory rate 20 and unlabored, oxygen saturation 100% on room air, and she is afebrile. HEENT: Unremarkable. ENT was clear. Chest: Clear bilateral breath sounds. Heart: Regular rate and rhythm. Abdomen: Soft, benign. Extremities: Showed the calves to be soft and nontender. Skin: There is a comedo with a black center on the posterior right shoulder. It is clear that it has been there for quite some time. It is essentially a large "blackhead." There is really nothing to be done about this unless she wishes to see Dermatology. We will be discharging her to home tomorrow. She has scheduled followup coming up with Dr. Valentin in May. We are going to make a referral to [facility] to continue home physical therapy. She has otherwise done well with Physical Therapy. There are no new concerns or complaints. [facility] /[id number] MTDD
--- NOTE | 2017-03-04 04:19 | DISCH ---
DISCHARGE DIAGNOSES: 1. Multiple falls at home without fracture. 2. Generalized weakness, improved. 3. Impaired gait secondary to Parkinson's disease. 4. Hypertension by history, controlled. 5. Antihypertensives have been discontinued and blood pressures are stable. 6. Schizophrenia and tardive dyskinesia by history. 7. Comedo ("blackhead") on the posterior right shoulder. BRIEF HISTORY OF PRESENT ILLNESS: Mrs. Carver is an 82-year-old lady, who lives at the [facility]. She had multiple falls at home due to generalized weakness secondary to her Parkinson's disease. She voluntarily came to swing bed to work with Physical and Occupational Therapy for strengthening and improvement of gait and safety. No imaging studies or labs were performed during this admission. HOSPITAL COURSE: She has done well. Her vital signs have been stable throughout the stay. Her beta-isabel had been stopped earlier due to what appeared to be orthostatic hypotension. She has done well off the beta- isabel. Appetite is good. She is eating 100% of her meals and tolerating her diet. She is voiding and moving her bowels. She has good oral intake. She has worked daily with Physical and Occupational Therapy, and gait and strength have improved. She is walking independently with her walker, and she feels ready to go home. PHYSICAL EXAMINATION: Unchanged. Vital Signs: Blood pressure remained stable. She is afebrile. Neurologic: She is intact. HEENT: Unremarkable. ENT is clear. Chest: Clear bilateral breath sounds. Heart: Regular rate and rhythm. Abdomen: Soft, benign. Extremities: No edema. Neurologically, she has significant tremors consistent with her Parkinson's disease. Skin: She has a large "blackhead" comedo on the right posterior shoulder. She had a small skin breakdown on the left buttock, and this has been treated by the nursing staff and has improved. DISCHARGE MEDICATIONS: 1. Olanzapine 2.5 mg at bedtime. 2. Carbidopa/levodopa 25/100 mg ODT 1 tablet t.i.d. 3. Aspirin EC 81 mg daily. 4. Anastrazole 1 mg daily. 5. Tylenol 500 mg q.i.d. p.r.n. ALLERGIES: No known allergies. FOLLOWUP: She has scheduled follow up with Dr. Valentin on June 12, 2017, at 10:30. She is scheduled for lab work prior to that visit. A referral will be made to [facility] to continue therapy in the home setting. CONDITION AT THE TIME OF DISCHARGE: Improved and stable. [facility] /[id number] MTDD
[2017-03-04] MEDS: Heparin Sodium 5,000 Units/ML Vial SUBCUT SCH ×2 (06:23→13:15)
[2017-03-04 07:19] VITALS: BP 125/80
[2017-03-04] MEDS: ACETAMINOPHEN 160 MG/5 ML PO PRN ×2 (08:24→13:19)
[2017-03-04] MEDS: ANASTROZOLE 1 MG PO SCH (08:25)
[2017-03-04] MEDS: CARBIDOPA PO SCH ×2 (08:28→13:15)
[2017-03-04] MEDS: [UNRECOGNIZED DRUG - OTHER] PO SCH ×2 (08:28→13:15)
== END 2017-03-04 14:20 | disposition home health service (06) | DRG 948 ==
LOC: UNDOADMIN 16:20 → DL.MS 16:20 → UNDOADMIN 16:21 → DL.MS 16:21 → UNDOADMIN 17:52
PROVIDERS: ADMIT Internal Medicine; ATTEND Internal Medicine
DX: R53.1 Weakness (principal); R29.6 Repeated falls; G20 Parkinson's disease; I48.91 Unspecified atrial fibrillation; I10 Essential (primary) hypertension; R32 Unspecified urinary incontinence; M81.0 Age-related osteoporosis without current pathological fracture; G24.01 Drug induced subacute dyskinesia; Z85.3 Personal history of malignant neoplasm of breast; F20.9 Schizophrenia, unspecified; Z96.649 Presence of unspecified artificial hip joint; Z87.891 Personal history of nicotine dependence; Z79.899 Other long term (current) drug therapy; R26.89 Other abnormalities of gait and mobility
CPT/HCPCS: 97110-GO; 97110-GP; 97116-GP; 97140-GP; 97161-GP; 97166-GO; 97530-GO; 97530-GP; 97535-GO; A9270-GY; J1644

== ENCOUNTER 2018-10-04 09:35 | Emergency (ER) | payer MEDICARE, BC ==
[2018-10-04 09:57] VITALS: BP 125/73
[2018-10-04 10:47] LABS: ANION GAP 14.6; CHLORIDE,CL 99 mmol/L (101-111); SODIUM,NA 135 mmol/L (135-145)
--- NOTE | 2018-10-04 10:53 | CR ---
Clinical history: 83-year-old female syncope. Interpretation: Mastectomy. Normal cardiac silhouette without cephalization of vascular flow, signs of alveolar edema or dependent effusion. No lung mass, hilar lymphadenopathy or focal lobar pneumonia. No atelectasis/collapse. No pneumothorax or free subdiaphragmatic air. CONCLUSION: No acute cardiopulmonary abnormality.
[2018-10-04] MEDS ORDERED: Sodium Chloride 0.9% 500 ML IV SCH (11:00)
--- NOTE | 2018-10-04 11:20 | EDM.PDOC ---
ED HPI GENERAL MEDICAL PROBLEM - General Chief Complaint: Syncope Stated Complaint: FAINTED THIS MORNING Time Seen by Provider: 10/04/18 10:15 Source of Information: Reports: Patient History Limitations: Reports: No Limitations - History of Present Illness INITIAL COMMENTS - FREE TEXT/NARRATIVE: This 83 yo female patient was brought to the ED by her family due to a near syncope event this morning. The patient was standing in her home eating breakfast when she got very weak and was assisted to the floor by an employee at the [facility]. The patient reports she is feeling very normal at this time. The patient denies any chest pain, fever, chills, nausea, vomiting or diarrhea. Onset: Today Duration: Minutes:, Resolved Prior to Arrival Location: Reports: Generalized Quality: Reports: Other Severity: Mild Improves with: Reports: None Worsens with: Reports: None Associated Symptoms: Reports: Syncope - Related Data Allergies Allergy/AdvReac Type Severity Reaction Status Date / Time No Known Allergies Allergy Verified 10/04/18 09:57 Home Meds: Home Meds Anastrozole 1 mg PO DAILY 02/07/16 [History] Carbidopa/Levodopa [Carbidopa-Levo 25-100 MG ODT] 1 tab PO TID 02/16/17 [History ] Acetaminophen 500 mg PO QID PRN 02/23/17 [History] Aspirin [Halfprin] 81 mg PO DAILY 02/23/17 [History] Cholecalciferol (Vitamin D3) [D--STEFFEN Drops] 3 ml PO DAILY 10/04/18 [History] Past Medical History Cardiovascular History: Reports: Afib, Hypertension Gastrointestinal History: Reports: None Genitourinary History: Reports: Urinary Incontinence Musculoskeletal History: Reports: Osteoporosis Neurological History: Reports: Other (See Below) Other Neuro History: Tarrdive dyskinesia Psychiatric History: Reports: Schizophrenia Oncologic (Cancer) History: Reports: Breast Dermatologic History: Reports: Other (See Below) Other Dermatologic History: 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 s/p right mastectomy - Infectious Disease History Infectious Disease History: Reports: Chicken Pox, Measles, Mumps, Pertussis ( Whooping Cough) - Past Surgical History HEENT Surgical History: Reports: Adenoidectomy, Tonsillectomy Musculoskeletal Surgical History: Reports: Hip Replacement Oncologic Surgical History: Reports: Mastectomy Social & Family History - Family History Family Medical History: Noncontributory - Tobacco Use Smoking Status *Q: Former Smoker Used Tobacco, but Quit: Yes Month/Year Tobacco Last Used: yrs ago - Caffeine Use Caffeine Use: Reports: None - Recreational Drug Use Recreational Drug Use: No ED ROS GENERAL - Review of Systems Review Of Systems: ROS reveals no pertinent complaints other than HPI. - Physical Exam Exam: See Below Exam Limited By: No Limitations General Appearance: Alert, WD/WN, No Apparent Distress Eye Exam: Bilateral Eye: EOMI, Normal Inspection, PERRL Ears: Normal External Exam, Normal Canal, Hearing Grossly Normal, Normal TMs Nose: Normal Inspection, Normal Mucosa, No Blood Throat/Mouth: Normal Inspection, Normal Lips, Normal Teeth, Normal Gums, Normal Oropharynx, Normal Voice, No Airway Compromise Head Exam: Atraumatic, Normocephalic Neck: Normal Inspection, Supple, Non-Tender, Full Range of Motion Respiratory/Chest: No Respiratory Distress, Lungs Clear, Normal Breath Sounds, No Accessory Muscle Use, Chest Non-Tender Cardiovascular: Normal Peripheral Pulses, Regular Rate, Rhythm, No Edema, No Gallop, No JVD, No Murmur, No Rub GI/Abdominal: Normal Bowel Sounds, Soft, Non-Tender, No Organomegaly, No Distention, No Abnormal Bruit, No Mass (Female) Exam: Deferred Rectal (Female) Exam: Deferred Neuro Exam (Abbreviated): Alert, Oriented, CN II-XII Intact, Normal Cognition, Normal Gait, Normal Reflexes, No Motor/Sensory Deficits Back Exam: Normal Inspection, Full Range of Motion, NT Extremities: Normal Inspection, Normal Range of Motion, Non-Tender, No Pedal Edema, Normal Capillary Refill Psychiatric: Normal Affect, Normal Mood Skin Exam: Warm, Dry, Intact, Normal Color, No Rash Course - Vital Signs Last Recorded V/S: Last Vital Signs Temp 37.0 C 10/04/18 09:52 Pulse 86 10/04/18 09:52 Resp 14 10/04/18 09:52 BP 125/73 10/04/18 09:52 Pulse Ox 100 10/04/18 09:52 Orthostatic Blood Pressure [] 118/63 Orthostatic Blood Pressure [] 117/71 Orthostatic Blood Pressure [] 108/66 - Orders/Labs/Meds Orders: Active Orders 24 hr Category Date Time Status EKG Documentation Completion [RC] URGENT Care 10/04/18 09:54 Active CULTURE URINE [RM] Urgent Lab 10/04/18 10:35 Received Sodium Chloride 0.9% [Normal Saline] 500 ml Med 10/04/18 11:00 Ordered IV .BOLUS Medication Orders Sodium Chloride (Normal Saline) 500 mls @ 999 mls/hr IV .BOLUS BRIAN Last Admin: 10/04/18 11:10 Dose: 999 mls/hr Labs: Laboratory Tests 10/04/18 10/04/18 10/04/18 Range/Units 10:03 10:03 10:35 WBC 4.0 L (5.0-10.0) 10^3/uL RBC 3.96 L (4.2-5.4) 10^6/uL Hgb 12.3 D (12.0-16.0) g/dL Hct 38.6 (37.0-47.0) % MCV 97.5 (80-100) fL MCH 31.1 (27.0-34.0) pg MCHC 31.9 L (33.0-35.0) g/dL Plt Count 127 L (150-450) 10^3/uL Neut % (Auto) 81.7 H (42.2-75.2) % Lymph % (Auto) 10.7 L (20.5-50.1) % [place] % (Auto) 6.7 (2-8) % Eos % (Auto) 0.7 L (1.0-3.0) % Baso % (Auto) 0.2 (0.0-1.0) % Sodium 135 (135-145) mmol/L Potassium 3.6 (3.6-5.0) mmol/L Chloride 99 L (101-111) mmol/L Carbon Dioxide 25.0 (21.0-31.0) mmol/L Anion Gap 14.6 BUN 24 H (7-18) mg/dL Creatinine 0.7 (0.6-1.3) mg/dL Est Cr Clr Drug Dosing 39.04 mL/min Estimated GFR (MDRD) > 60 BUN/Creatinine Ratio 34.28 Glucose 155 H (74-105) mg/dL Calcium 9.1 (8.4-10.2) mg/dl Total Bilirubin 1.5 H (0.2-1.0) mg/dL AST 22 (10-42) IU/L ALT < 5 L (10-60) IU/L Alkaline Phosphatase 56 (42-121) IU/L Troponin I < 0.02 (0.00-0.02) ng/ml Total Protein 6.2 L (6.7-8.2) g/dl Albumin 3.6 (3.2-5.5) g/dl Globulin 2.6 Albumin/Globulin Ratio 1.38 Urine Color Yellow (YELLOW) Urine Appearance Clear (CLEAR) Urine pH 6.5 (5.0-9.0) Ur Specific Nettie 1.020 (1.005-1.030) Urine Protein Negative (NEGATIVE) Urine Glucose (UA) Negative (NEGATIVE) Urine Ketones Negative (NEGATIVE) Urine Occult Blood Negative (NEGATIVE) Urine Nitrite Negative (NEGATIVE) Urine Bilirubin Negative (NEGATIVE) Urine Urobilinogen 0.2 (0.2-1.0) mg/dL Ur Leukocyte Esterase Small H (NEGATIVE) Urine RBC 0-5 /HPF Urine WBC 0-5 (0-5/HPF) /HPF Ur Epithelial Cells Rare /HPF Urine Bacteria Rare (0-FEW/HPF) /HPF Urine Mucus Few H /LPF Meds: Medications Generic Name Dose Route Start Last Admin Trade Name Patrickq PRN Reason Stop Dose Admin Sodium Chloride 500 mls @ 999 mls/hr 10/04/18 11:00 10/04/18 11:10 Normal Saline IV 999 mls/hr .BOLUS BRIAN Administration Departure - Departure Time of Disposition: 11:37 Disposition: Home, Self-Care 01 Condition: Fair Clinical Impression: Vasovagal syncope, Mild dehydration - Discharge Information *PRESCRIPTION DRUG MONITORING PROGRAM REVIEWED*: Not Applicable *COPY OF PRESCRIPTION DRUG MONITORING REPORT IN PATIENT ELIZABETH: Not Applicable Instructions: Near-Syncope, [id number], Dehydration, Elderly, [id number] Forms: ED Department Discharge Care Plan Goals: The patient and family were advised of the examination, EKG, X-ray and lab results during the visit. The patient was encouraged to continue to monitor for any additional symptoms. If the patient has any additional symptoms or concerns , the patient should either return to the emergency department or visit her primary care facility. - My Orders Last 24 Hours: My Active Orders 10/04/18 09:54 EKG Documentation Completion [RC] URGENT 10/04/18 10:35 CULTURE URINE [RM] Urgent 10/04/18 11:00 Sodium Chloride 0.9% [Normal Saline] 500 ml IV .BOLUS - Assessment/Plan Last 24 Hours: My Active Orders 10/04/18 09:54 EKG Documentation Completion [RC] URGENT 10/04/18 10:35 CULTURE URINE [RM] Urgent 10/04/18 11:00 Sodium Chloride 0.9% [Normal Saline] 500 ml IV .BOLUS
== END 2018-10-04 11:54 | disposition home or self-care (01) ==
LOC: DL.ED 09:35
DX: R55 Syncope and collapse (principal); E86.0 Dehydration; Z79.899 Other long term (current) drug therapy; Z79.82 Long term (current) use of aspirin; Z87.890 Personal history of sex reassignment
CPT/HCPCS: 36415; 71045; 80053; 81001; 84484; 85025; 87086; 93005; 96360; 99284; J7040

== ENCOUNTER 2018-11-25 20:49 | Emergency (ER) | payer MEDICARE, BC ==
[2018-11-25 22:00] LABS: CHLORIDE,CL 100 mmol/L (101-111); SODIUM,NA 134 mmol/L (135-145)
--- NOTE | 2018-11-25 22:25 | EDM.PDOC ---
ED HPI GENERAL MEDICAL PROBLEM - General Chief Complaint: Upper Extremity Injury/Pain Stated Complaint: RIGHT ARM IS SWOLLEN AND RED Time Seen by Provider: 11/25/18 22:25 Source of Information: Reports: Patient History Limitations: Reports: No Limitations - History of Present Illness INITIAL COMMENTS - FREE TEXT/NARRATIVE: This 83 yo female patient was brought to the ED by her family from [facility]. The patient's nursing staff noticed increased swelling and erythema of her right arm this evening. Nursing reported that the patient had a temp of 103 while at home. The patient has a history of a right mastectomy and lymphedma to her right arm. The patient normally wears a compression sleeve on her right arm , but does not have it on this evening. The patient reports no pain or recent injuries to the arm. Onset: Today Duration: Constant Location: Reports: Upper Extremity, Right Quality: Reports: Other Severity: Moderate Improves with: Reports: None Worsens with: Reports: None Context: Reports: Other - Related Data Allergies Allergy/AdvReac Type Severity Reaction Status Date / Time No Known Allergies Allergy Verified 11/25/18 21:15 Home Meds: Home Meds Anastrozole 1 mg PO DAILY 02/07/16 [History] Carbidopa/Levodopa [Carbidopa-Levo 25-100 MG ODT] 1.5 tab PO TID 02/16/17 [ History] Acetaminophen 500 mg PO QID PRN 02/23/17 [History] Aspirin [Halfprin] 81 mg PO DAILY 02/23/17 [History] Cholecalciferol (Vitamin D3) [D--STEFFEN Drops] 3 ml PO DAILY 10/04/18 [History] Past Medical History Cardiovascular History: Reports: Afib, Hypertension Respiratory History: Reports: None Gastrointestinal History: Reports: None Genitourinary History: Reports: Urinary Incontinence CLIENT MANAGER History: Reports: None Musculoskeletal History: Reports: Osteoporosis Neurological History: Reports: Other (See Below) Other Neuro History: Tarrdive dyskinesia Psychiatric History: Reports: Schizophrenia Endocrine/Metabolic History: Reports: None Hematologic History: Reports: None Immunologic History: Reports: None Oncologic (Cancer) History: Reports: Breast Dermatologic History: Reports: Other (See Below) Other Dermatologic History: 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 s/p right mastectomy - Infectious Disease History Infectious Disease History: Reports: Chicken Pox, Measles, Mumps, Pertussis ( Whooping Cough) - Past Surgical History HEENT Surgical History: Reports: Adenoidectomy, Tonsillectomy Musculoskeletal Surgical History: Reports: Hip Replacement Oncologic Surgical History: Reports: Mastectomy Social & Family History - Family History Family Medical History: Noncontributory - Tobacco Use Smoking Status *Q: Never Smoker - Caffeine Use Caffeine Use: Reports: None - Recreational Drug Use Recreational Drug Use: No Review of Systems - Review of Systems Review Of Systems: ROS reveals no pertinent complaints other than HPI. ED EXAM, GENERAL - Physical Exam Exam: See Below Exam Limited By: No Limitations General Appearance: Alert, WD/WN, Moderate Distress Eye Exam: Bilateral Eye: EOMI, Normal Inspection, PERRL Ears: Normal External Exam, Normal Canal, Hearing Grossly Normal, Normal TMs Nose: Normal Inspection, Normal Mucosa, No Blood Throat/Mouth: Normal Inspection, Normal Lips, Normal Teeth, Normal Gums, Normal Oropharynx, Normal Voice, No Airway Compromise Head: Atraumatic, Normocephalic Neck: Normal Inspection, Supple, Non-Tender, Full Range of Motion Respiratory/Chest: No Respiratory Distress, Lungs Clear, Normal Breath Sounds, No Accessory Muscle Use, Chest Non-Tender Cardiovascular: Normal Peripheral Pulses, Regular Rate, Rhythm, No Edema, No Gallop, No JVD, No Murmur, No Rub GI/Abdominal: Normal Bowel Sounds, Soft, Non-Tender, No Organomegaly, No Distention, No Abnormal Bruit, No Mass (Female) Exam: Deferred Rectal (Female) Exam: Deferred Back Exam: Normal Inspection, Full Range of Motion, NT Extremities: Increased Warmth (right upper extremity), Redness (right upper extremity) Neurological: Alert, Oriented, CN II-XII Intact, Normal Cognition, Normal Gait, Normal Reflexes, No Motor/Sensory Deficits Psychiatric: Normal Affect Skin Exam: Erythema (right upper extremity), Increased Warmth (right upper extremity) Lymphatic: No Adenopathy Course - Vital Signs Last Recorded V/S: Last Vital Signs Temp 38.1 C 11/25/18 21:14 Pulse 98 11/25/18 21:14 Resp 16 11/25/18 21:14 BP 141/84 H 11/25/18 21:14 Pulse Ox 97 11/25/18 21:14 - Orders/Labs/Meds Orders: Active Orders 24 hr Category Date Time Status Venous Doppler Upr Ext Rt [US] Urgent Exams 11/25/18 22:32 Ordered CULTURE BLOOD [BC] Stat Lab 11/25/18 21:28 Received CULTURE BLOOD [BC] Stat Lab 11/25/18 22:12 Received Blood Culture x2 Reflex Set [OM.PC] Stat Oth 11/25/18 21:38 Ordered Labs: Laboratory Tests 11/25/18 11/25/18 11/25/18 Range/Units 21:28 21:28 21:28 WBC 6.0 (5.0-10.0) 10^3/uL RBC 4.02 L (4.2-5.4) 10^6/uL Hgb 12.4 (12.0-16.0) g/dL Hct 38.5 (37.0-47.0) % MCV 95.8 (80-100) fL MCH 30.8 (27.0-34.0) pg MCHC 32.2 L (33.0-35.0) g/dL Plt Count 141 L (150-450) 10^3/uL Neut % (Auto) 81.8 H (42.2-75.2) % Lymph % (Auto) 11.2 L (20.5-50.1) % [place] % (Auto) 6.3 (2-8) % Eos % (Auto) 0.5 L (1.0-3.0) % Baso % (Auto) 0.2 (0.0-1.0) % D-Dimer, Quantitative 904 H (0-400) ng/mL Sodium 134 L (135-145) mmol/L Potassium 5.0 (3.6-5.0) mmol/L Chloride 100 L (101-111) mmol/L Carbon Dioxide 26.0 (21.0-31.0) mmol/L Anion Gap 13.0 BUN 33 H (7-18) mg/dL Creatinine 0.8 (0.6-1.3) mg/dL Est Cr Clr Drug Dosing 35.41 mL/min Estimated GFR (MDRD) > 60 BUN/Creatinine Ratio 41.25 Glucose 111 H (74-105) mg/dL Lactic Acid (0.5-2.2) mmol/L Calcium 9.3 (8.4-10.2) mg/dl Total Bilirubin 1.3 H (0.2-1.0) mg/dL AST 22 (10-42) IU/L ALT < 5 L (10-60) IU/L Alkaline Phosphatase 66 (42-121) IU/L Total Protein 7.1 (6.7-8.2) g/dl Albumin 4.1 (3.2-5.5) g/dl Globulin 3.0 Albumin/Globulin Ratio 1.37 11/25/18 Range/Units 21:28 WBC (5.0-10.0) 10^3/uL RBC (4.2-5.4) 10^6/uL Hgb (12.0-16.0) g/dL Hct (37.0-47.0) % MCV (80-100) fL MCH (27.0-34.0) pg MCHC (33.0-35.0) g/dL Plt Count (150-450) 10^3/uL Neut % (Auto) (42.2-75.2) % Lymph % (Auto) (20.5-50.1) % [place] % (Auto) (2-8) % Eos % (Auto) (1.0-3.0) % Baso % (Auto) (0.0-1.0) % D-Dimer, Quantitative (0-400) ng/mL Sodium (135-145) mmol/L Potassium (3.6-5.0) mmol/L Chloride (101-111) mmol/L Carbon Dioxide (21.0-31.0) mmol/L Anion Gap BUN (7-18) mg/dL Creatinine (0.6-1.3) mg/dL Est Cr Clr Drug Dosing mL/min Estimated GFR (MDRD) BUN/Creatinine Ratio Glucose (74-105) mg/dL Lactic Acid 1.1 (0.5-2.2) mmol/L Calcium (8.4-10.2) mg/dl Total Bilirubin (0.2-1.0) mg/dL AST (10-42) IU/L ALT (10-60) IU/L Alkaline Phosphatase (42-121) IU/L Total Protein (6.7-8.2) g/dl Albumin (3.2-5.5) g/dl Globulin Albumin/Globulin Ratio Meds: Medications Discontinued Medications Generic Name Dose Route Start Last Admin Trade Name Freq PRN Reason Stop Dose Admin Vancomycin HCl 1 gm/ Sodium 250 mls @ 167 mls/hr 11/25/18 23:38 11/25/18 23: 50 Chloride IV 11/26/18 01:07 167 mls/hr ONETIME ONE Administration Departure - Departure Time of Disposition: 01:30 Disposition: Home, Self-Care 01 Condition: Fair Clinical Impression: Cellulitis of right arm - Discharge Information *PRESCRIPTION DRUG MONITORING PROGRAM REVIEWED*: Not Applicable *COPY OF PRESCRIPTION DRUG MONITORING REPORT IN PATIENT ELIZABETH: Not Applicable Instructions: Cellulitis, Adult, [id number] Referrals: PCP,None [Primary Care Provider] - Forms: ED Department Discharge Care Plan Goals: The patient and son were advised of the examination, lab and ultrasound results during the visit. The patient was given an IV dose of Vancomycin while in the ED. The patient was discharged with a script for Keflex (250/5) to take 10 mL by mouth 3 times per day for 10 days. The patient was encouraged to follow-up with her primary care provider next week. If the patient has any additional symptoms or concerns, the patient should either return to the emergency department or visit her primary care facility. - My Orders Last 24 Hours: My Active Orders 11/25/18 21:28 CULTURE BLOOD [BC] Stat 11/25/18 21:38 Blood Culture x2 Reflex Set [OM.PC] Stat 11/25/18 22:12 CULTURE BLOOD [BC] Stat 11/25/18 22:32 Venous Doppler Upr Ext Rt [US] Urgent - Assessment/Plan Last 24 Hours: My Active Orders 11/25/18 21:28 CULTURE BLOOD [BC] Stat 11/25/18 21:38 Blood Culture x2 Reflex Set [OM.PC] Stat 11/25/18 22:12 CULTURE BLOOD [BC] Stat 11/25/18 22:32 Venous Doppler Upr Ext Rt [US] Urgent
[2018-11-26 01:34] VITALS: BP 121/67
== END 2018-11-26 01:39 | disposition home or self-care (01) ==
LOC: DL.ED 20:49
DX: L03.115 Cellulitis of right lower limb (principal); I48.91 Unspecified atrial fibrillation; I10 Essential (primary) hypertension; Z79.82 Long term (current) use of aspirin; Z79.899 Other long term (current) drug therapy
CPT/HCPCS: 36415; 80053; 83605; 85025; 85379; 87040; 93971; 96365; 99284; J3370; J7050

== ENCOUNTER 2020-03-10 20:52 | Emergency (ER) | payer MEDICARE, BC ==
[2020-03-10 21:23] VITALS: BP 120/82; PULSE 99
--- NOTE | 2020-03-10 22:10 | EDM.PDOC ---
ED HPI GENERAL MEDICAL PROBLEM - General Chief Complaint: Upper Extremity Injury/Pain Stated Complaint: RIGHT ARM HAS REDNESS, PURPLE-DERICK Time Seen by Provider: 03/10/20 22:05 Source of Information: Reports: Patient History Limitations: Reports: No Limitations - History of Present Illness INITIAL COMMENTS - FREE TEXT/NARRATIVE: c/o recurrent h/o right upper arm swelling and redness. last episode Tx with keflex suspension. - Related Data Allergies Allergy/AdvReac Type Severity Reaction Status Date / Time No Known Allergies Allergy Verified 03/10/20 21:18 Home Meds: Home Meds Anastrozole 1 mg PO DAILY 02/07/16 [History] Carbidopa/Levodopa [Carbidopa-Levo 25-100 MG ODT] 1.5 tab PO TID 02/16/17 [H istory] Acetaminophen 500 mg PO QID PRN 02/23/17 [History] Aspirin [Halfprin] 81 mg PO DAILY 02/23/17 [History] Cholecalciferol (Vitamin D3) [D--STEFFEN Drops] 3 ml PO DAILY 10/04/18 [History] Past Medical History Cardiovascular History: Reports: Afib, Hypertension Respiratory History: Reports: None Gastrointestinal History: Reports: None Genitourinary History: Reports: Urinary Incontinence VAT WASHER History: Reports: None Musculoskeletal History: Reports: Osteoporosis Neurological History: Reports: Other (See Below) Other Neuro History: Tarrdive dyskinesia Psychiatric History: Reports: Schizophrenia Endocrine/Metabolic History: Reports: None Hematologic History: Reports: None Immunologic History: Reports: None Oncologic (Cancer) History: Reports: Breast Dermatologic History: Reports: Other (See Below) Other Dermatologic History: 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 s/p right mastectomy - Infectious Disease History Infectious Disease History: Reports: Chicken Pox, Measles, Mumps, Pertussis (Whooping Cough) - Past Surgical History HEENT Surgical History: Reports: Adenoidectomy, Tonsillectomy Musculoskeletal Surgical History: Reports: Hip Replacement Oncologic Surgical History: Reports: Mastectomy Social & Family History - Family History Family Medical History: Noncontributory - Tobacco Use Smoking Status *Q: Never Smoker - Caffeine Use Caffeine Use: Reports: None - Recreational Drug Use Recreational Drug Use: No Review of Systems - Review of Systems Review Of Systems: Comprehensive ROS is negative, except as noted in HPI. ED EXAM, GENERAL - Physical Exam Exam: See Below Exam Limited By: No Limitations General Appearance: Alert, WD/WN, No Apparent Distress Ears: Hearing Grossly Normal Throat/Mouth: Normal Voice, No Airway Compromise Head: Atraumatic Neck: Non-Tender, Full Range of Motion Respiratory/Chest: No Respiratory Distress Cardiovascular: Regular Rate, Rhythm GI/Abdominal: Soft, Non-Tender Extremities: Redness, Other (mild swelling and redness, not hot, no lymphangitis, NV wnl, normal ROM) Neurological: Alert, Oriented, Normal Cognition, No Motor/Sensory Deficits Psychiatric: Normal Affect, Normal Mood Skin Exam: Warm, Dry, Normal Color Lymphatic: No Adenopathy Course - Vital Signs Last Recorded V/S: Last Vital Signs Temp 37.0 C 03/10/20 21:18 Pulse 99 03/10/20 21:18 Resp 16 03/10/20 21:18 BP 120/82 03/10/20 21:18 Pulse Ox 96 03/10/20 21:18 Departure - Departure Time of Disposition: 22:08 Disposition: Home, Self-Care 01 Condition: Good Clinical Impression: Cellulitis of right arm - Discharge Information Instructions: Cellulitis, Adult, [id number] Additional Instructions: 1) change aspirin to one every other day until re-evaluated by family doctor next week rx togo; keflex 250mg suspension 5ml qid x 1 week Sepsis Event Note (ED) - Evaluation Sepsis Screening Result: No Definite Risk - Focused Exam Vital Signs: Vital Signs Temp Pulse Resp BP Pulse Ox 03/10/20 21:18 37.0 C 99 16 120/82 96
[2020-03-10] MEDS ORDERED: Cephalexin 250 MG/5 ML Susp 200 ML Bottle ONE (22:14)
== END 2020-03-10 22:25 | disposition home or self-care (01) ==
LOC: DL.ED 20:52
DX: L03.113 Cellulitis of right upper limb (principal); I10 Essential (primary) hypertension; I48.91 Unspecified atrial fibrillation; Z90.89 Acquired absence of other organs; Z79.82 Long term (current) use of aspirin; Z79.899 Other long term (current) drug therapy
CPT/HCPCS: 99283; A9270

== ENCOUNTER 2021-04-13 10:10 | Inpatient (IN) | payer MEDICARE, BC ==
[2021-04-13] MEDS ORDERED: Sodium Chloride 0.9% 10 ML Syringe FLUSH PRN (12:04)
[2021-04-13] MEDS ORDERED: Sodium Chloride 0.9% 1,000 ML IV ONE (12:09)
--- NOTE | 2021-04-13 12:10 | EDM.PDOC ---
ED HPI GENERAL MEDICAL PROBLEM - General Chief Complaint: Back Pain or Injury Stated Complaint: [id number] SOB FELL AT 8:50 BACK PAIN Time Seen by Provider: 04/13/21 12:07 Source of Information: Reports: Patient, Family History Limitations: Reports: No Limitations - History of Present Illness INITIAL COMMENTS - FREE TEXT/NARRATIVE: 86 y/o F c/o mid back pn after falling in her apartment at [facility] living. Pt states she was standing cleaning her face when she felt like she was going to pass out and then collapsed to the floor. No loc. Did not hit her head. The pain in her back is 2/10 about the level of the belly button, sharp in nature, non radiating and worse with movement of her R leg. Hx of Parkinson. Denies fever cough, chills, sob, cp, abd pn, pelvic pn, extremity pn, constipation. Pts son is present and states the pt has hx of dehydration from not drinking enough water at home. Pt later reports some increase in frequency of urination but no associated pain. Onset: Today Duration: Hour(s): Location: Reports: Back, Generalized Quality: Reports: Sharp Severity: Mild Improves with: Reports: None Worsens with: Reports: Movement Middle Back Pain Score (Numeric/FACES): 20 - Related Data Allergies Allergy/AdvReac Type Severity Reaction Status Date / Time No Known Allergies Allergy Verified 04/13/21 11:29 Home Meds: Home Meds Anastrozole 1 mg PO DAILY 02/07/16 [History] Carbidopa/Levodopa [Carbidopa-Levo 25-100 MG ODT] 1.5 tab PO TID 02/16/17 [History] Acetaminophen 500 mg PO QID PRN 02/23/17 [History] Aspirin [Halfprin] 81 mg PO DAILY 02/23/17 [History] Cholecalciferol (Vitamin D3) [D--STEFFEN Drops] 3 ml PO DAILY 10/04/18 [History] Past Medical History Cardiovascular History: Reports: Afib, Hypertension Respiratory History: Reports: None Gastrointestinal History: Reports: None Genitourinary History: Reports: Urinary Incontinence [employer] History: Reports: None Musculoskeletal History: Reports: Osteoporosis Neurological History: Reports: Other (See Below) Other Neuro History: Tarrdive dyskinesia Psychiatric History: Reports: Schizophrenia Endocrine/Metabolic History: Reports: None Hematologic History: Reports: None Immunologic History: Reports: None Oncologic (Cancer) History: Reports: Breast Dermatologic History: Reports: Other (See Below) Other Dermatologic History: 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 s/p right mastectomy - Infectious Disease History Infectious Disease History: Reports: Chicken Pox, Measles, Mumps, Pertussis (Whooping Cough) - Past Surgical History HEENT Surgical History: Reports: Adenoidectomy, Tonsillectomy Cardiovascular Surgical History: Reports: None Neurological Surgical History: Reports: None Musculoskeletal Surgical History: Reports: Hip Replacement Other Musculoskeletal Surgeries/Procedures:: Closed right hip fracture Oncologic Surgical History: Reports: Mastectomy Other Oncologic Surgeries/Procedures: right sided mastectomy with resulting lymphedema Social & Family History - Family History Family Medical History: No Pertinent Family History - Tobacco Use Tobacco Use Status *Q: Unknown Ever Used Tobacco - Caffeine Use Caffeine Use: Reports: Coffee - Recreational Drug Use Recreational Drug Use: No ED ROS GENERAL - Review of Systems Review Of Systems: Comprehensive ROS is negative, except as noted in HPI. ED EXAM, UPPER BACK/NECK PAIN - Physical Exam Exam: See Below Exam Limited By: No Limitations General Appearance: Alert, No Apparent Distress Eye Exam: Bilateral Eye: PERRL Nose Exam: Normal Inspection, Normal Mucousa, No Blood Throat/Mouth Exam: Normal Lips, Normal Teeth, Normal Gums, Normal Voice, No Airway Compromise, Other (mucus membranes dry) Head Exam: Atraumatic, Normocephalic Neck Exam: Non-Tender, Normal Inspection Cardiovascular/Respiratory: Regular Rate, Rhythm, Normal Peripheral Pulses, Normal Breath Sounds, No Respiratory Distress GI/Abdominal: Soft, Non-Tender Back Exam: Other (point tenderness of t8-t10 no crepitus) Extremities: Normal Inspection, Normal Range of Motion, Non-Tender, No Pedal Edema, Normal Capillary Refill Neurologic: No Motor/Sensory Deficits, Alert, Normal Mood/Affect, Oriented x 3 Psychiatric: Normal Affect, Normal Mood Skin Exam: Normal Color, Warm/Dry Lymphatic: No Adenopathy #1 Interpretation EKG Date: 04/13/21 Time: 12:36 Rhythm: A-Fib [place]: Normal P-Wave: Absent QRS: Normal ST-T: Normal QT: Normal Course - Vital Signs Last Recorded V/S: Last Vital Signs Temp 98.4 F 04/13/21 11:18 Pulse 90 09/25/21 11:18 Resp 12 04/13/21 11:18 BP 97/62 04/13/21 11:18 Pulse Ox 92 L 04/13/21 14:48 - Orders/Labs/Meds Orders: Active Orders 24 hr Category Date Time Status Admission Diagnosis [ADT] Stat ADT 04/13/21 14:47 Ordered Admission Status [Patient Status] [ADT] Routine ADT 04/13/21 14:47 Active Peripheral IV Care [RC] . DIRECTED Care 04/13/21 12:05 Active Sodium Chloride 0.9% [Saline Flush] Med 04/13/21 12:04 Active 10 ml FLUSH ASDIRECTED PRN Peripheral IV Insertion Adult [OM.PC] Routine Oth 04/13/21 12:04 Ordered Medication Orders Sodium Chloride (Sodium Chloride 0.9% 10 Ml Syringe) 10 ml FLUSH ASDIRECTED PRN PRN Reason: Keep Vein Open Labs: Laboratory Tests 04/13/21 04/13/21 04/13/21 Range/Units 12:17 12:17 12:19 WBC 5.9 (5.0-10.0) 10^3/uL RBC 3.96 L (4.2-5.4) 10^6/uL Hgb 12.0 (12.0-16.0) g/dL Hct 37.7 (37.0-47.0) % MCV 95.2 (80-100) fL MCH 30.3 (27.0-34.0) pg MCHC 31.8 L (33.0-35.0) g/dL Plt Count 113 L (150-450) 10^3/uL Neut % (Auto) 88.7 H (42.2-75.2) % Lymph % (Auto) 4.8 L (20.5-50.1) % [place] % (Auto) 6.5 (2-8) % Eos % (Auto) 0.0 L (1.0-3.0) % Baso % (Auto) 0.0 (0.0-1.0) % Sodium 139 (136-145) mmol/L Potassium 4.2 (3.5-5.1) mmol/L Chloride 101 (98-107) mmol/L Carbon Dioxide 30 (21-32) mmol/L Anion Gap 12.2 (7-13) mEq/L BUN 24 H (7-18) mg/dL Creatinine 0.83 (0.55-1.02) mg/dL Est Cr Clr Drug Dosing TNP Estimated GFR (MDRD) > 60 BUN/Creatinine Ratio 28.9 (No establ ref range) Glucose 113 H (70-99) mg/dL Calcium 8.5 (8.5-10.1) mg/dL Magnesium 2.0 (1.8-2.4) mg/dL Total Bilirubin 0.9 (0.2-1.0) mg/dL AST 40 H (15-37) U/L ALT 24 (14-59) U/L Alkaline Phosphatase 117 H (46-116) U/L Total Protein 6.8 (6.4-8.2) g/dL Albumin 3.0 L (3.4-5.0) g/dL Globulin 3.8 Albumin/Globulin Ratio 0.79 TSH, Ultra Sensitive 1.17 (0.36-3.74) uIU/mL Urine Color (YELLOW) Urine Appearance (CLEAR) Urine pH (5.0-9.0) Ur Specific [place] (1.005-1.030) Urine Protein (NEGATIVE) Urine Glucose (UA) (NEGATIVE) Urine Ketones (NEGATIVE) Urine Occult Blood (NEGATIVE) Urine Nitrite (NEGATIVE) Urine Bilirubin (NEGATIVE) Urine Urobilinogen (0.2-1.0) mg/dL Ur Leukocyte Esterase (NEGATIVE) U Hyaline Cast (Auto) Urine RBC (0-5) /HPF Urine WBC (0-5/HPF) /HPF Ur Epithelial Cells (NOT SEEN) /HPF Amorphous Sediment (NOT SEEN) /HPF Urine Bacteria (0-FEW/HPF) /HPF Urine Mucus (NOT SEEN) /LPF Urine Other SARS-CoV-2 RNA (RILEY) Positive H (NEGATIVE) 04/13/21 Range/Units 13:01 WBC (5.0-10.0) 10^3/uL RBC (4.2-5.4) 10^6/uL Hgb (12.0-16.0) g/dL Hct (37.0-47.0) % MCV (80-100) fL MCH (27.0-34.0) pg MCHC (33.0-35.0) g/dL Plt Count (150-450) 10^3/uL Neut % (Auto) (42.2-75.2) % Lymph % (Auto) (20.5-50.1) % [place] % (Auto) (2-8) % Eos % (Auto) (1.0-3.0) % Baso % (Auto) (0.0-1.0) % Sodium (136-145) mmol/L Potassium (3.5-5.1) mmol/L Chloride (98-107) mmol/L Carbon Dioxide (21-32) mmol/L Anion Gap (7-13) mEq/L BUN (7-18) mg/dL Creatinine (0.55-1.02) mg/dL Est Cr Clr Drug Dosing Estimated GFR (MDRD) BUN/Creatinine Ratio (No establ ref range) Glucose (70-99) mg/dL Calcium (8.5-10.1) mg/dL Magnesium (1.8-2.4) mg/dL Total Bilirubin (0.2-1.0) mg/dL AST (15-37) U/L ALT (14-59) U/L Alkaline Phosphatase (46-116) U/L Total Protein (6.4-8.2) g/dL Albumin (3.4-5.0) g/dL Globulin Albumin/Globulin Ratio TSH, Ultra Sensitive (0.36-3.74) uIU/mL Urine Color Yellow (YELLOW) Urine Appearance Clear (CLEAR) Urine pH 7.0 (5.0-9.0) Ur Specific [place] 1.025 (1.005-1.030) Urine Protein 100 H (NEGATIVE) Urine Glucose (UA) Negative (NEGATIVE) Urine Ketones Negative (NEGATIVE) Urine Occult Blood Trace-intact H (NEGATIVE) Urine Nitrite Negative (NEGATIVE) Urine Bilirubin Negative (NEGATIVE) Urine Urobilinogen 1.0 (0.2-1.0) mg/dL Ur Leukocyte Esterase Negative (NEGATIVE) U Hyaline Cast (Auto) Rare Urine RBC 5-10 H (0-5) /HPF Urine WBC 0-5 (0-5/HPF) /HPF Ur Epithelial Cells Few (NOT SEEN) /HPF Amorphous Sediment Many H (NOT SEEN) /HPF Urine Bacteria Not seen (0-FEW/HPF) /HPF Urine Mucus Many H (NOT SEEN) /LPF Urine Other See note SARS-CoV-2 RNA (RILEY) (NEGATIVE) Meds: Medications Generic Name Dose Route Start Last Admin Trade Name Freq PRN Reason Stop Dose Admin Sodium Chloride 10 ml 04/13/21 12:04 Sodium Chloride 0.9% 10 Ml Syringe FLUSH ASDIRECTED PRN Keep Vein Open Discontinued Medications Generic Name Dose Route Start Last Admin Trade Name Patrickq PRN Reason Stop Dose Admin Fluorescein Sodium 1 mg 04/13/21 12:57 04/13/21 14:40 Fluorescein 1 Mg Ophth Strip EYERT 04/13/21 12:58 Not Given ONETIME ONE Gentamicin Sulfate 1 ml 04/13/21 14:00 Gentamicin 0.3% Ophth Soln 5 Ml Bottle EYERT TID BRIAN Sodium Chloride 1,000 mls @ 999 mls/hr 04/13/21 12:09 04/13/21 12:24 Normal Saline IV 04/13/21 13:09 999 mls/hr .BOLUS ONE Administration - Re-Assessments/Exams Free Text/Narrative Re-Assessment/Exam: 04/13/21 14:43 I discussed the patients condition, exam, labs, ekg adn imaging with Dr. Quintanilla. He has accepted the pt for in patient treatment. Departure - Departure Time of Disposition: 14:44 (Dr. Quintanilla) Disposition: Admitted As Inpatient 67 Condition: Fair Clinical Impression: COVID-19, Hypoxia, Compression fracture of body of thoracic vertebra - Discharge Information *PRESCRIPTION DRUG MONITORING PROGRAM REVIEWED*: Not Applicable *COPY OF PRESCRIPTION DRUG MONITORING REPORT IN PATIENT ELIZABETH: Not Applicable Forms: ED Department Discharge Sepsis Event Note (ED) - Focused Exam Vital Signs: Vital Signs Temp Pulse Resp BP Pulse Ox 04/13/21 14:48 92 L 04/13/21 11:18 98.4 F 90 12 97/62 89 L - My Orders Last 24 Hours: My Active Orders 04/13/21 12:04 Sodium Chloride 0.9% [Saline Flush] 10 ml FLUSH ASDIRECTED PRN Peripheral IV Insertion Adult [OM.PC] Routine 04/13/21 12:05 Peripheral IV Care [RC] . DIRECTED 04/13/21 14:47 Admission Diagnosis [ADT] Stat Admission Status [Patient Status] [ADT] Routine - Assessment/Plan Last 24 Hours: My Active Orders 04/13/21 12:04 Sodium Chloride 0.9% [Saline Flush] 10 ml FLUSH ASDIRECTED PRN Peripheral IV Insertion Adult [OM.PC] Routine 04/13/21 12:05 Peripheral IV Care [RC] . DIRECTED 04/13/21 14:47 Admission Diagnosis [ADT] Stat Admission Status [Patient Status] [ADT] Routine
[2021-04-13 12:56] LABS: ANION GAP 12.2 mEq/L (7-13); CHLORIDE,CL 101 mmol/L (98-107); SODIUM,NA 139 mmol/L (136-145)
[2021-04-13] MEDS ORDERED: Fluorescein 1 MG Ophth Strip EYERT ONE (12:57)
[2021-04-13] MEDS ORDERED: Gentamicin 0.3% Ophth Soln 5 ML Bottle EYERT SCH (14:00)
--- NOTE | 2021-04-13 14:24 | CT ---
PROCEDURE INFORMATION: Exam: CT Chest Without Contrast; Diagnostic Exam date and time: 04/13/2021 1:36 PM Age: 86 years old Clinical indication: Other: Hypoxic, back pain from fall, covid + TECHNIQUE: Imaging protocol: Diagnostic computed tomography of the chest without contrast. Radiation optimization: All CT scans at this facility use at least one of these dose optimization techniques: automated exposure control; mA and/or kV adjustment per patient size (includes targeted exams where dose is matched to clinical indication); or iterative reconstruction. COMPARISON: CR Chest 1V Frontal 10/04/2018 10:11 AM FINDINGS: Limitations: Patient motion limits evaluation for smaller lung abnormalities and fractures. Lungs: Bilateral lower lobe and right middle lobe atelectasis. Pleural spaces: Bilateral pleural effusions, right larger than left but both small. Heart: Mitral annulus calcification. Coronary arteries: LAD calcification. Aorta: Unremarkable. Lymph nodes: No enlarged or otherwise suspicious lymph nodes. Bones/joints: Exaggerated thoracic kyphosis. Sclerotic vertebral plana deformities at T6 and T11. No acute fracture. Mild central stenosis at T11. Approximately 50% compression deformity at T2. Soft tissues: Normal. IMPRESSION: 1. Nonspecific bilateral pleural effusions. Negative for pneumonia or acute pulmonary edema. 2. Severe compression deformities T6 and T11 and less severe compression deformity at T2, all contributing to exaggerated kyphosis. 3. Atherosclerosis.
--- NOTE | 2021-04-13 14:29 | CT ---
PROCEDURE INFORMATION: Exam: CT Head Without Contrast Exam date and time: 04/13/2021 1:36 PM Age: 86 years old Clinical indication: Other: Hypoxic, fall; Additional info: Hypoxic, back pain from fall TECHNIQUE: Imaging protocol: Computed tomography of the head without contrast. Radiation optimization: All CT scans at this facility use at least one of these dose optimization techniques: automated exposure control; mA and/or kV adjustment per patient size (includes targeted exams where dose is matched to clinical indication); or iterative reconstruction. COMPARISON: No relevant prior studies available. FINDINGS: Brain: Generalized cortical atrophy and white matter micro ischemia. No definite evidence of acute hemorrhage, mass effect or large territory infarction. No extra-axial fluid or blood noted. Cerebral ventricles: No ventriculomegaly. Paranasal sinuses: Visualized sinuses are unremarkable. No fluid levels. Mastoid air cells: Visualized mastoid air cells are well aerated. Bones/joints: Unremarkable. No acute fracture. Soft tissues: Unremarkable. Other findings: Limited study due to motion artifact. IMPRESSION: 1. Study limited by motion artifact. 2. No definite evidence of acute intracranial pathology. 3. Chronic age related involutional changes.
[2021-04-13] MEDS ORDERED: Acetaminophen Soln 160 MG/5 ML UD Cup PO PRN (15:21)
--- NOTE | 2021-04-13 15:23 | PCM.HP ---
H&P History of Present Illness - General Date of Service: 04/13/21 Admit Problem/Dx: Admission Diagnosis/Problem Admission Diagnosis/Problem Hypoxia Source of Information: Patient, Provider, RN Notes Reviewed History Limitations: Reports: Physical Impairment. Denies: Altered Mental Status, Respiratory Distress - History of Present Illness Initial Comments - Free Text/Narative: This is an 86-year-old elderly white female with past medical history of hypertension, urinary incontinence, osteoporosis, history of schizophrenia with tardive dyskinesia, history of lymphedema to the right arm status post right breast mastectomy, right hip fracture status post hip replacement, and moderate to severe Parkinson's disease who was brought in by EMS from the assisted living facility for evaluation of a fall that took place this morning. According to the patient, she just had a bowel movement then she stood up to wash her face at the sink when all of a sudden she got diffusely weak. Following her generalized weakness, she experienced near syncope and subsequently fell on to the floor. She denies any preceding symptoms at that time. No strokelike symptoms or seizure-like activities. She denies losing consciousness. No facial or head injury noted but she had a mid back pain after that incident. She states this would not be the first time she fell at least this week. She denies having fever or chills. No lightheadedness or dizziness. No chest pain or shortness o f breath. No signs of upper respiratory infection. No GI complaints but endorses increase in urinary frequency. Patient is unsure if she was vaccinated with COVID-19. Her initial work-up in the emergency department shows a CBC remarkable for RBC of 3.96, MCHC of 31.8, platelet count of 113, neutrophils of 88.7%. Her chemistry is notable for BUN of 24, glucose of 113, AST of 40, alkaline phosp hatase of 117, and albumin of 3. Her creatinine, admission, and TSH were all within normal limits. Her UA is negative for urinary tract infection. However her rapid COVID-19 test is positive. Her head CT scan report was read as no definite evidence of acute intracranial pathology but chronic age-related involutional changes. Her chest CT scan was read as nonspecific bilateral pleural effusions but negative for pneumonia or acute pulmonary edema. To note, patient was found hypoxic and they had difficulty getting her oxygen above 80% at the assisted living facility. However in the emergency department, she was found with O2 sat in the upper 80s with respiratory rate in the low 20s. She immediately improved after she was put on 3 L nasal cannula satting anywhere between 92 to 94%. Her CODE STATUS is DNR/DNI. Middle Back Pain Score (Numeric/FACES): 20 - Related Data Allergies/Adverse Reactions: Allergies Allergy/AdvReac Type Severity Reaction Status Date / Time No Known Allergies Allergy Verified 04/13/21 19:21 Home Medications: Home Meds Anastrozole 1 mg PO DAILY 02/07/16 [History] Carbidopa/Levodopa [Carbidopa-Levo 25-100 MG ODT] 1.5 tab PO TID 02/16/17 [History] Acetaminophen 500 mg PO QID PRN 02/23/17 [History] Aspirin [Halfprin] 81 mg PO DAILY 02/23/17 [History] Cholecalciferol (Vitamin D3) [D--STEFFEN Drops] 3 ml PO DAILY 10/04/18 [History] Acetaminophen [Mapap] 15 ml PO BID PRN 04/13/21 [History] Magnesium Hydroxide [Milk of Magnesia] 30 ml PO DAILY PRN 04/13/21 [History] Sennosides [Senokot] 8.6 mg PO DAILY PRN 04/13/21 [History] polyethylene glycoL 3350 [MiraLAX] 17 gm PO DAILY 04/13/21 [History] Past Medical History Cardiovascular History: Reports: Afib, Hypertension Respiratory History: Reports: None Gastrointestinal History: Reports: None Genitourinary History: Reports: Urinary Incontinence [employer]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 Musculoskeletal History: Reports: Osteoporosis Neurological History: Reports: Other (See Below) Other Neuro History: Tarrdive dyskinesia Psychiatric History: Reports: Schizophrenia Endocrine/Metabolic History: Reports: None Hematologic History: Reports: None Immunologic History: Reports: None Oncologic (Cancer) History: Reports: Breast Dermatologic History: Reports: Other (See Below) Other Dermatologic History: 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 s/p right mastectomy - Infectious Disease History Infectious Disease History: Reports: Chicken Pox, Measles, Mumps, Pertussis (Whooping Cough) - Past Surgical History HEENT Surgical History: Reports: Adenoidectomy, Tonsillectomy Cardiovascular Surgical History: Reports: None Neurological Surgical History: Reports: None Musculoskeletal Surgical History: Reports: Hip Replacement Other Musculoskeletal Surgeries/Procedures:: Closed right hip fracture Oncologic Surgical History: Reports: Mastectomy Other Oncologic Surgeries/Procedures: right sided mastectomy with resulting lymphedema Social & Family History - Family History Family Medical History: No Pertinent Family History - Tobacco Use Tobacco Use Status *Q: Unknown Ever Used Tobacco - Caffeine Use Caffeine Use: Reports: Coffee - Recreational Drug Use Recreational Drug Use: No H&P Review of Systems - Review of Systems: Review Of Systems: See Below General: Reports: Weakness. Denies: Fever, Chills, Malaise, Fatigue, Decreased Appetite HEENT: Denies: Contact Lenses, Sore Throat Pulmonary: Denies: Shortness of Breath, Wheezing, Pleuritic Chest Pain, Cough, Sputum Cardiovascular: Denies: Palpitations, Dyspnea on Exertion, Orthopnea, Lightheadedness, Blood Pressure Problem Gastrointestinal: Denies: Abdominal Pain, Constipation, Diarrhea, Decreased Appetite, Nausea, Vomiting Genitourinary: Reports: Frequency. Denies: Dysuria, Urgency, Incontinence, Retention Musculoskeletal: Reports: Back Pain. Denies: Joint Pain, Muscle Pain Skin: Denies: Bruising, Pruritis, Rash Psychiatric: Denies: Anxiety, Agitation Neurological: Reports: Tremors (Facial and hand tremors), Difficulty Walking, Weakness, Gait Disturbance. Denies: Confusion Hematologic/Lymphatic: Reports: No Symptoms Immunologic: Reports: No Symptoms Exam - Exam Exam: See Below - Vital Signs Vital Signs: Last Vital Signs Temp 36.9 C 04/13/21 11:18 Pulse 90 04/13/21 11:18 Resp 12 04/13/21 11:18 BP 97/62 04/13/21 11:18 Pulse Ox 92 L 04/13/21 14:48 Weight: 38.102 kg - Exam Quality Assessment: Supplemental Oxygen, DVT Prophylaxis General: Alert, Oriented, Cooperative. No: Mild Distress HEENT: Conjunctiva Clear, EOMI, Hearing Intact, Nares Patent, Normal Nasal Septum, Pupils Equal, Pupils Reactive, Other (Edentulous) Neck: Supple, Trachea Midline Lungs: Clear to Auscultation, Normal Respiratory Effort Cardiovascular: Regular Rate, Regular Rhythm GI/Abdominal Exam: Normal Bowel Sounds, Soft, Non-Tender, No Organomegaly, No Distention, No Abnormal Bruit (Female) Exam: Deferred Rectal (Female) Exam: Deferred Back Exam: Normal Inspection, Decreased Range of Motion, Other (Kyphosis) Extremities: Normal Inspection, Normal Range of Motion, Non-Tender, No Pedal Edema, Normal Capillary Refill, Other (There is a small bruise above her ankle of her right lower extremity) Peripheral Pulses: 2+: Dorsalis Pedis (L), Dorsalis Pedis (R) Skin: Warm, Dry, Intact Skin Alteration Location (Drawings Not To Scale): 1 - No obvious trauma or injury. No tenderness on palpation or swelling 2 - Small bruise Neuro Extensive - Mental Status: Normal Cognition, Memory Intact Neuro Extensive - Motor, Sensory, Reflexes: CN II-XII Intact (Very limited due to tremors), Abnormal Gait Psychiatric: Alert, Normal Affect, Normal Mood - Patient Data Lab Results Last 24 hrs: Laboratory Results - last 24 hr 04/13/21 04/13/21 04/13/21 Range/Units 12:17 12:17 12:19 WBC 5.9 (5.0-10.0) 10^3/uL RBC 3.96 L (4.2-5.4) 10^6/uL Hgb 12.0 (12.0-16.0) g/dL Hct 37.7 (37.0-47.0) % MCV 95.2 (80-100) fL MCH 30.3 (27.0-34.0) pg MCHC 31.8 L (33.0-35.0) g/dL Plt Count 113 L (150-450) 10^3/uL Neut % (Auto) 88.7 H (42.2-75.2) % Lymph % (Auto) 4.8 L (20.5-50.1) % Barren % (Auto) 6.5 (2-8) % Eos % (Auto) 0.0 L (1.0-3.0) % Baso % (Auto) 0.0 (0.0-1.0) % Sodium 139 (136-145) mmol/L Potassium 4.2 (3.5-5.1) mmol/L Chloride 101 (98-107) mmol/L Carbon Dioxide 30 (21-32) mmol/L Anion Gap 12.2 (7-13) mEq/L BUN 24 H (7-18) mg/dL Creatinine 0.83 (0.55-1.02) mg/dL Est Cr Clr Drug Dosing TNP Estimated GFR (MDRD) > 60 BUN/Creatinine Ratio 28.9 (No establ ref range) Glucose 113 H (70-99) mg/dL Calcium 8.5 (8.5-10.1) mg/dL Magnesium 2.0 (1.8-2.4) mg/dL Total Bilirubin 0.9 (0.2-1.0) mg/dL AST 40 H (15-37) U/L ALT 24 (14-59) U/L Alkaline Phosphatase 117 H (46-116) U/L Total Protein 6.8 (6.4-8.2) g/dL Albumin 3.0 L (3.4-5.0) g/dL Globulin 3.8 Albumin/Globulin Ratio 0.79 TSH, Ultra Sensitive 1.17 (0.36-3.74) uIU/mL Urine Color (YELLOW) Urine Appearance (CLEAR) Urine pH (5.0-9.0) Ur Specific [place] (1.005-1.030) Urine Protein (NEGATIVE) Urine Glucose (UA) (NEGATIVE) Urine Ketones (NEGATIVE) Urine Occult Blood (NEGATIVE) Urine Nitrite (NEGATIVE) Urine Bilirubin (NEGATIVE) Urine Urobilinogen (0.2-1.0) mg/dL Ur Leukocyte Esterase (NEGATIVE) U Hyaline Cast (Auto) Urine RBC (0-5) /HPF Urine WBC (0-5/HPF) /HPF Ur Epithelial Cells (NOT SEEN) /HPF Amorphous Sediment (NOT SEEN) /HPF Urine Bacteria (0-FEW/HPF) /HPF Urine Mucus (NOT SEEN) /LPF Urine Other SARS-CoV-2 RNA (RILEY) Positive H (NEGATIVE) 04/13/21 Range/Units 13:01 WBC (5.0-10.0) 10^3/uL RBC (4.2-5.4) 10^6/uL Hgb (12.0-16.0) g/dL Hct (37.0-47.0) % MCV (80-100) fL MCH (27.0-34.0) pg MCHC (33.0-35.0) g/dL Plt Count (150-450) 10^3/uL Neut % (Auto) (42.2-75.2) % Lymph % (Auto) (20.5-50.1) % Barren % (Auto) (2-8) % Eos % (Auto) (1.0-3.0) % Baso % (Auto) (0.0-1.0) % Sodium (136-145) mmol/L Potassium (3.5-5.1) mmol/L Chloride (98-107) mmol/L Carbon Dioxide (21-32) mmol/L Anion Gap (7-13) mEq/L BUN (7-18) mg/dL Creatinine (0.55-1.02) mg/dL Est Cr Clr Drug Dosing Estimated GFR (MDRD) BUN/Creatinine Ratio (No establ ref range) Glucose (70-99) mg/dL Calcium (8.5-10.1) mg/dL Magnesium (1.8-2.4) mg/dL Total Bilirubin (0.2-1.0) mg/dL AST (15-37) U/L ALT (14-59) U/L Alkaline Phosphatase (46-116) U/L Total Protein (6.4-8.2) g/dL Albumin (3.4-5.0) g/dL Globulin Albumin/Globulin Ratio TSH, Ultra Sensitive (0.36-3.74) uIU/mL Urine Color Yellow (YELLOW) Urine Appearance Clear (CLEAR) Urine pH 7.0 (5.0-9.0) Ur Specific [place] 1.025 (1.005-1.030) Urine Protein 100 H (NEGATIVE) Urine Glucose (UA) Negative (NEGATIVE) Urine Ketones Negative (NEGATIVE) Urine Occult Blood Trace-intact H (NEGATIVE) Urine Nitrite Negative (NEGATIVE) Urine Bilirubin Negative (NEGATIVE) Urine Urobilinogen 1.0 (0.2-1.0) mg/dL Ur Leukocyte Esterase Negative (NEGATIVE) U Hyaline Cast (Auto) Rare Urine RBC 5-10 H (0-5) /HPF Urine WBC 0-5 (0-5/HPF) /HPF Ur Epithelial Cells Few (NOT SEEN) /HPF Amorphous Sediment Many H (NOT SEEN) /HPF Urine Bacteria Not seen (0-FEW/HPF) /HPF Urine Mucus Many H (NOT SEEN) /LPF Urine Other See note SARS-CoV-2 RNA (RILEY) (NEGATIVE) Result Diagrams: 04/14/21 06:05 04/14/21 06:05 Problem List Initiated/Reviewed/Updated: Yes Orders Last 24hrs: Active Orders 24 hr Category Date Time Status Admission Diagnosis [ADT] Stat ADT 04/13/21 14:47 Ordered Admission Status [Patient Status] [ADT] Routine ADT 04/13/21 14:47 Active EKG 12 Lead [EKG Documentation Completion] [RC] ROUTINE Care 04/13/21 15:20 Ordered Orthostatic Vital Signs [RC] ASDIRECTED Care 04/13/21 15:16 Ordered Carotid Comp [US] Routine Exams 04/15/21 06:00 Ordered Echo Comp wo Cont [US] Routine Exams 04/13/21 15:20 Ordered CRP [C-REACTIVE PROTEIN] [CHEM] Stat Lab 04/13/21 15:18 Ordered D Dimer [D-DIMER QUANTITATIVE] [COAG] Stat Lab 04/13/21 15:19 Ordered ESR [SEDIMENTATION RATE MANUAL] [HEME] Stat Lab 04/13/21 15:18 Ordered FERRITIN [CHEM] Stat Lab 04/13/21 15:18 Ordered LACTATE DEHYDROGENASE,LDH [CHEM] Routine Lab 04/13/21 15:19 Ordered T4 FREE [CHEM] Routine Lab 04/13/21 15:19 Ordered VITAMIN D,25-HYDROXY [CHEM] Routine Lab 04/13/21 15:21 Ordered Acetaminophen [Acetaminophen] Med 04/13/21 15:21 Ordered 500 mg PO QID PRN Anastrozole [Anastrozole] Med 04/14/21 09:00 Ordered 1 mg PO DAILY Aspirin [Halfprin] Med 04/14/21 09:00 Ordered 81 mg PO DAILY Carbidopa/Levodopa [Carbidopa-Levo 25-100 MG ODT] Med 04/13/21 21:00 Ordered 1.5 tab PO TID Cholecalciferol (Vitamin D3) [D--STEFFEN Drops] Med 04/14/21 09:00 Ordered 3 ml PO DAILY Sodium Chloride 0.9% [Saline Flush] Med 04/13/21 12:04 Active 10 ml FLUSH ASDIRECTED PRN Peripheral IV Insertion Adult [OM.PC] Routine Oth 04/13/21 12:04 Ordered Medication Orders Aspirin (Aspirin 81 Mg Tab.Ec) 81 mg PO DAILY BRIAN Non-Formulary Medication (Acetaminophen [Acetaminophen]) 500 mg PO QID PRN PRN Reason: Pain Non-Formulary Medication (Anastrozole [Anastrozole]) 1 mg PO DAILY BRIAN Non-Formulary Medication (Carbidopa/Levodopa [Carbidopa-Levo 25-100 Mg Odt]) 1.5 tab PO TID BRIAN Non-Formulary Medication (Cholecalciferol (Vitamin D3) [D-Vi-Steffen Drops]) 3 ml PO DAILY BRIAN Sodium Chloride (Sodium Chloride 0.9% 10 Ml Syringe) 10 ml FLUSH ASDIRECTED PRN PRN Reason: Keep Vein Open Assessment/Plan Comment:: This is an 86-year-old elderly white female with past medical history of hypertension, urinary incontinence, osteoporosis, history of schizophrenia with tardive dyskinesia, history of lymphedema to the right arm status post right breast mastectomy, right hip fracture status post hip replacement, and moderate to severe Parkinson's disease who was brought in by EMS from the assisted living facility for evaluation of a fall that took place this morning. Assessment: Acute: Defecation syncope/vasovagal Rule out cardiac syncope Recurrent fall Generalized weakness and unsteadiness likely due to severe Parkinson's disease COVID-19 infection with hypoxia Hypoxia with O2 sat in in the 70s at the assisted living facility secondary to COVID-19 infection requiring 3 L nasal cannula satting between 92 to 94%; patient is fully vaccinated with COVID-19 according to her son Mild thrombocytopenia with platelets count of 113 Elevated BUN of 24 Mild hyperglycemia glucose 113; carries no history of glucose intolerance or diabetes Mildly elevated AST of 40 Alkaline phosphatase of 117 Mild hypoalbuminemia with albumin of 3 Advance Parkinson's disease Nonspecific bilateral pleural effusions noted on chest CT scan Back pain status post fall likely exacerbation of compression deformities; CT scan demonstrates no acute fracture Severe compression deformities on T6 and T11 and less severe compression deformity at T2 noted on chest CT scan taken in the emergency department Chronic: Hypertension Urinary incontinence Osteoporosis History of schizophrenia with tardive dyskinesia History of lymphedema to the right arm status post right breast mastectomy Right hip fracture status post hip replacement Moderate to severe Parkinson's disease Plan: None Admit to medical floor Isolation protocol due to COVID-19 infection Routine a.m. labs Check for inflammatory markers to include D-dimer We will not initiate remdesivir since her symptoms are mild and unknown in onset Chest CT scan does not show pneumonitis or obvious consolidation Sputum culture with Gram stain As needed expectorant and decongestant RT to assess and treat EKG if not already done in the emergency department (suspicious of abnormal rhythm) Carotid studies and 2D echo Telemetry to monitor for life-threatening abnormal rhythm Thyroid panel and vitamin D level Accu-Chek AC with insulin sliding scale Low-dose dexamethasone daily for COVID-19 treatment Fall precautions Check for orthostasis PT/OT when appropriate DVT/GI 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
[2021-04-13] MEDS ORDERED: HYDROmorphone 0.5 MG/0.5 ML Syringe IVPUSH PRN (15:26)
[2021-04-13] MEDS ORDERED: Bisacodyl 5 MG Tab PO PRN (15:26)
[2021-04-13] MEDS ORDERED: Polyethylene Glycol 3350 Powder 17 GM Packet PO PRN (15:26)
[2021-04-13] MEDS ORDERED: Acetaminophen 325 MG Tab PO PRN (15:26)
[2021-04-13] MEDS ORDERED: Acetaminophen/HYDROcodone 325-10 MG Tab PO PRN (15:26)
[2021-04-13] MEDS ORDERED: Ondansetron 4 MG/2 ML SDV IVPUSH PRN (15:26)
[2021-04-13] MEDS ORDERED: Albuterol/Ipratropium 3.0-0.5 MG/3 ML Neb Soln NEB PRN (15:26)
[2021-04-13] MEDS ORDERED: Zolpidem 5 MG Tab PO PRN (15:26)
[2021-04-13] MEDS ORDERED: Glucagon,Human Recombinant 1 MG Vial IM PRN (16:25)
[2021-04-13] MEDS ORDERED: Insulin Lispro 100 Units/ML 3 ML Vial SUBCUT PRN (16:25)
[2021-04-13] MEDS ORDERED: 50% Dextrose in Water 50 ML Syringe IVPUSH PRN (16:25)
[2021-04-13] MEDS ORDERED: Dexamethasone 4 MG/ML SDV IVPUSH ONE (16:27)
[2021-04-13] MEDS ORDERED: guaiFENesin/Dextromethorphan 100-10 MG/5 ML Soln 5 ML Cup PO PRN (16:29)
[2021-04-13] MEDS ORDERED: Metoprolol Tartrate 5 MG/5 ML SDV IVPUSH PRN (17:43)
[2021-04-13] MEDS ORDERED: Famotidine 20 MG Tab PO SCH (21:00)
[2021-04-13] MEDS: Carbidopa/Levodopa 25-100 MG Tab PO SCH (21:05)
--- NOTE | 2021-04-14 06:34 | PCM.PN ---
- General Info Date of Service: 04/14/21 Admission Dx/Problem (Free Text): Admission Diagnosis/Problem Admission Diagnosis/Problem Hypoxia Subjective Update: No significant overnight issues. However yesterday she went into SVT with heart rate as high as 200s. She responded to a one-time dose of IV push. Reviewed overnight telemetry which showed episodic atrial flutter and a short run of ventricular tachycardia. She denies any acute issues or concerns this morning. She was found in bed soaked and wet with urine by her day nurse. She denies having shortness of breath. She remains on 3 L nasal cannula satting anywhere 97 to 100%. Lab hernandez, her WBC is down to 4 with hemoglobin of 11.3 g, hematocrit of 36, platelet of 107, and neutrophils of 82.1%. Her D-dimer taken yesterday showed over 5000 ng/mL. Her chemistry shows BUN of 21, glucose of 111, calcium of 7.7, and CRP of 8.9. Her ferritin was elevated at 1491, alkaline phosphatase of 117, and LDH of 296 all taken yesterday. Her thyroid panel is within normal limits. Functional Status: Reports: Pain Controlled, Tolerating Diet, Ambulating, Urinating, Incentive Spirometry. Denies: New Symptoms - Review of Systems General: Reports: Weakness. Denies: Fever, Fatigue, Malaise, Chills HEENT: Denies: Dysphasia Pulmonary: Denies: Shortness of Breath, Cough, Sputum, Hemoptysis, Wheezing Cardiovascular: Denies: Chest Pain, Dyspnea on Exertion, Orthopnea, Lig htheadedness Gastrointestinal: Denies: Abdominal Pain, Vomiting, Other Genitourinary: Reports: Retention, Other (Incontinence) Musculoskeletal: Denies: Neck Pain, Back Pain, Joint Pain Skin: Denies: Jaundice, Diaphoresis, Pruritis Neurological: Denies: Dizziness, Other Psychiatric: Denies: Depression, Anxiety, Agitation, Hallucinations - Patient Data Vitals - Most Recent: Last Vital Signs Temp 36.7 C 04/14/21 04:00 Pulse 73 04/14/21 00:00 Resp 22 H 04/14/21 04:00 BP 101/87 04/14/21 04:00 Pulse Ox 98 04/14/21 04:00 Orthostatic Blood Pressure [ 115/67 Standing] Orthostatic Blood Pressure [ 135/77 Sitting] Orthostatic Blood Pressure [ 132/87 Supine] Weight - Most Recent: 38.918 kg I&O - Last 24 Hours: Intake & Output 04/13/21 04/13/21 04/14/21 14:59 22:59 06:59 Intake Total 250 150 Output Total 150 Balance -150 250 150 Lab Results Last 24 Hours: Laboratory Results - last 24 hr 04/13/21 04/13/21 04/13/21 Range/Units 12:17 12:17 12:17 WBC 5.9 (5.0-10.0) 10^3/uL RBC 3.96 L (4.2-5.4) 10^6/uL Hgb 12.0 (12.0-16.0) g/dL Hct 37.7 (37.0-47.0) % MCV 95.2 (80-100) fL MCH 30.3 (27.0-34.0) pg MCHC 31.8 L (33.0-35.0) g/dL Plt Count 113 L (150-450) 10^3/uL Neut % (Auto) 88.7 H (42.2-75.2) % Lymph % (Auto) 4.8 L (20.5-50.1) % B[place] % (Auto) 6.5 (2-8) % Eos % (Auto) 0.0 L (1.0-3.0) % Baso % (Auto) 0.0 (0.0-1.0) % ESR 34 H (0-20) mm/hr D-Dimer, Quantitative (0-400) ng/mL Sodium 139 (136-145) mmol/L Potassium 4.2 (3.5-5.1) mmol/L Chloride 101 (98-107) mmol/L Carbon Dioxide 30 (21-32) mmol/L Anion Gap 12.2 (7-13) mEq/L BUN 24 H (7-18) mg/dL Creatinine 0.83 (0.55-1.02) mg/dL Est Cr Clr Drug Dosing TNP Estimated GFR (MDRD) > 60 BUN/Creatinine Ratio 28.9 (No establ ref range) Glucose 113 H (70-99) mg/dL Calcium 8.5 (8.5-10.1) mg/dL Magnesium 2.0 (1.8-2.4) mg/dL Ferritin (8-252) mg/mL Total Bilirubin 0.9 (0.2-1.0) mg/dL AST 40 H (15-37) U/L ALT 24 (14-59) U/L Alkaline Phosphatase 117 H (46-116) U/L Lactate Dehydrogenase (81-234) U/L C-Reactive Protein (0.0-0.9) mg/dL Total Protein 6.8 (6.4-8.2) g/dL Albumin 3.0 L (3.4-5.0) g/dL Globulin 3.8 Albumin/Globulin Ratio 0.79 Free T4 (0.76-1.46) ng/dL TSH, Ultra Sensitive 1.17 (0.36-3.74) uIU/mL Urine Color (YELLOW) Urine Appearance (CLEAR) Urine pH (5.0-9.0) Ur Specific [place] (1.005-1.030) Urine Protein (NEGATIVE) Urine Glucose (UA) (NEGATIVE) Urine Ketones (NEGATIVE) Urine Occult Blood (NEGATIVE) Urine Nitrite (NEGATIVE) Urine Bilirubin (NEGATIVE) Urine Urobilinogen (0.2-1.0) mg/dL Ur Leukocyte Esterase (NEGATIVE) U Hyaline Cast (Auto) Urine RBC (0-5) /HPF Urine WBC (0-5/HPF) /HPF Ur Epithelial Cells (NOT SEEN) /HPF Amorphous Sediment (NOT SEEN) /HPF Urine Bacteria (0-FEW/HPF) /HPF Urine Mucus (NOT SEEN) /LPF Urine Other SARS-CoV-2 RNA (RILEY) (NEGATIVE) 04/13/21 04/13/21 04/13/21 Range/Units 12:17 12:17 12:17 WBC (5.0-10.0) 10^3/uL RBC (4.2-5.4) 10^6/uL Hgb (12.0-16.0) g/dL Hct (37.0-47.0) % MCV (80-100) fL MCH (27.0-34.0) pg MCHC (33.0-35.0) g/dL Plt Count (150-450) 10^3/uL Neut % (Auto) (42.2-75.2) % Lymph % (Auto) (20.5-50.1) % [place] % (Auto) (2-8) % Eos % (Auto) (1.0-3.0) % Baso % (Auto) (0.0-1.0) % ESR (0-20) mm/hr D-Dimer, Quantitative > 5000 H (0-400) ng/mL Sodium (136-145) mmol/L Potassium (3.5-5.1) mmol/L Chloride (98-107) mmol/L Carbon Dioxide (21-32) mmol/L Anion Gap (7-13) mEq/L BUN (7-18) mg/dL Creatinine (0.55-1.02) mg/dL Est Cr Clr Drug Dosing Estimated GFR (MDRD) BUN/Creatinine Ratio (No establ ref range) Glucose (70-99) mg/dL Calcium (8.5-10.1) mg/dL Magnesium (1.8-2.4) mg/dL Ferritin 1491 H (8-252) mg/mL Total Bilirubin (0.2-1.0) mg/dL AST (15-37) U/L ALT (14-59) U/L Alkaline Phosphatase (46-116) U/L Lactate Dehydrogenase 296 H (81-234) U/L C-Reactive Protein 5.0 H (0.0-0.9) mg/dL Total Protein (6.4-8.2) g/dL Albumin (3.4-5.0) g/dL Globulin Albumin/Globulin Ratio Free T4 1.26 (0.76-1.46) ng/dL TSH, Ultra Sensitive (0.36-3.74) uIU/mL Urine Color (YELLOW) Urine Appearance (CLEAR) Urine pH (5.0-9.0) Ur Specific [place] (1.005-1.030) Urine Protein (NEGATIVE) Urine Glucose (UA) (NEGATIVE) Urine Ketones (NEGATIVE) Urine Occult Blood (NEGATIVE) Urine Nitrite (NEGATIVE) Urine Bilirubin (NEGATIVE) Urine Urobilinogen (0.2-1.0) mg/dL Ur Leukocyte Esterase (NEGATIVE) U Hyaline Cast (Auto) Urine RBC (0-5) /HPF Urine WBC (0-5/HPF) /HPF Ur Epithelial Cells (NOT SEEN) /HPF Amorphous Sediment (NOT SEEN) /HPF Urine Bacteria (0-FEW/HPF) /HPF Urine Mucus (NOT SEEN) /LPF Urine Other SARS-CoV-2 RNA (RILEY) (NEGATIVE) 04/13/21 04/13/21 04/14/21 Range/Units 12:19 13:01 06:05 WBC 4.0 L (5.0-10.0) 10^3/uL RBC 3.80 L (4.2-5.4) 10^6/uL Hgb 11.3 L (12.0-16.0) g/dL Hct 36.0 L (37.0-47.0) % MCV 94.7 (80-100) fL MCH 29.7 (27.0-34.0) pg MCHC 31.4 L (33.0-35.0) g/dL Plt Count 107 L (150-450) 10^3/uL Neut % (Auto) 82.1 H (42.2-75.2) % Lymph % (Auto) 9.2 L (20.5-50.1) % [place] % (Auto) 8.7 H (2-8) % Eos % (Auto) 0.0 L (1.0-3.0) % Baso % (Auto) 0.0 (0.0-1.0) % ESR (0-20) mm/hr D-Dimer, Quantitative (0-400) ng/mL Sodium (136-145) mmol/L Potassium (3.5-5.1) mmol/L Chloride (98-107) mmol/L Carbon Dioxide (21-32) mmol/L Anion Gap (7-13) mEq/L BUN (7-18) mg/dL Creatinine (0.55-1.02) mg/dL Est Cr Clr Drug Dosing Estimated GFR (MDRD) BUN/Creatinine Ratio (No establ ref range) Glucose (70-99) mg/dL Calcium (8.5-10.1) mg/dL Magnesium (1.8-2.4) mg/dL Ferritin (8-252) mg/mL Total Bilirubin (0.2-1.0) mg/dL AST (15-37) U/L ALT (14-59) U/L Alkaline Phosphatase (46-116) U/L Lactate Dehydrogenase (81-234) U/L C-Reactive Protein (0.0-0.9) mg/dL Total Protein (6.4-8.2) g/dL Albumin (3.4-5.0) g/dL Globulin Albumin/Globulin Ratio Free T4 (0.76-1.46) ng/dL TSH, Ultra Sensitive (0.36-3.74) uIU/mL Urine Color Yellow (YELLOW) Urine Appearance Clear (CLEAR) Urine pH 7.0 (5.0-9.0) Ur Specific [place] 1.025 (1.005-1.030) Urine Protein 100 H (NEGATIVE) Urine Glucose (UA) Negative (NEGATIVE) Urine Ketones Negative (NEGATIVE) Urine Occult Blood Trace-intact H (NEGATIVE) Urine Nitrite Negative (NEGATIVE) Urine Bilirubin Negative (NEGATIVE) Urine Urobilinogen 1.0 (0.2-1.0) mg/dL Ur Leukocyte Esterase Negative (NEGATIVE) U Hyaline Cast (Auto) Rare Urine RBC 5-10 H (0-5) /HPF Urine WBC 0-5 (0-5/HPF) /HPF Ur Epithelial Cells Few (NOT SEEN) /HPF Amorphous Sediment Many H (NOT SEEN) /HPF Urine Bacteria Not seen (0-FEW/HPF) /HPF Urine Mucus Many H (NOT SEEN) /LPF Urine Other See note SARS-CoV-2 RNA (RILEY) Positive H (NEGATIVE) Med Orders - Current: Current Medications Acetaminophen (Acetaminophen Soln 160 Mg/5 Ml Ud Cup) 500 mg PO QID PRN PRN Reason: Pain Acetaminophen (Acetaminophen 325 Mg Tab) 650 mg PO Q4H PRN PRN Reason: Pain (Mild 1-3)/fever Hydrocodone Bitart/Acetaminophen (Acetaminophen/Hydrocodone 325-10 Mg Tab) 1 tab PO Q4H PRN PRN Reason: Pain (moderate 4-6) Albuterol/Ipratropium (Albuterol/Ipratropium 3.0-0.5 Mg/3 Ml Neb Soln) 3 ml NEB Q4H PRN PRN Reason: shortness of breath/wheezing Aspirin (Aspirin 81 Mg Tab.Ec) 81 mg PO DAILY BRIAN Bisacodyl (Bisacodyl 5 Mg Tab) 5 mg PO DAILY PRN PRN Reason: Constipation Carbidopa/Levodopa (Carbidopa/Levodopa 25-100 Mg Tab) 1.5 tab PO TID BRIAN Last Admin: 04/13/21 21:05 Dose: 1.5 tab Documented by: Dexamethasone (Dexamethasone 4 Mg Tab) 4 mg PO DAILY [facility] Stop: 04/23/21 09:01 Dextrose/Water (50% Dextrose In Water 50 Ml Syringe) 50 ml IVPUSH Q15M PRN PRN Reason: Hypoglycemia Enoxaparin Sodium (Enoxaparin 40 Mg/0.4 Ml Syringe) 40 mg SUBCUT DAILY BRIAN Famotidine (Famotidine 20 Mg Tab) 20 mg PO DAILY BRIAN Glucagon (Glucagon,Human Recombinant 1 Mg Vial) 1 mg IM Q15M PRN PRN Reason: Hypoglycemia Guaifenesin/Phenylephrine HCl (Guaifenesin/Dextromethorphan 100-10 Mg/5 Ml Soln 5 Ml Cup) 5 ml PO Q4H PRN PRN Reason: Cough Hydromorphone HCl (Hydromorphone 0.5 Mg/0.5 Ml Syringe) 0.25 mg IVPUSH Q2H PRN PRN Reason: Pain (severe 7-10) Insulin Human Lispro (Insulin Lispro 100 Units/Ml 3 Ml Vial) 0 unit SUBCUT TIDMEALS BRIAN; Protocol Metoprolol Tartrate (Metoprolol Tartrate 5 Mg/5 Ml Sdv) 5 mg IVPUSH Q4H PRN PRN Reason: Tachycardia Last Admin: 04/13/21 18:01 Dose: 5 mg Documented by: Non-Formulary Medication (Anastrozole [Anastrozole]) 1 mg PO DAILY [facility] Non-Formulary Medication (Cholecalciferol (Vitamin D3) [D-Vi-Zahida Drops]) 3 ml PO DAILY [facility] Ondansetron HCl (Ondansetron 4 Mg/2 Ml Sdv) 4 mg IVPUSH Q6H PRN PRN Reason: Nausea/Vomiting Polyethylene Glycol (Polyethylene Glycol 3350 Powder 17 Gm Packet) 17 gm PO DAILY PRN PRN Reason: Constipation Senna/Docusate Sodium (Docusate Sodium/Sennosides 50-8.6 Mg Tab) 1 tab PO BEDTIME PRN PRN Reason: Constipation Sodium Chloride (Sodium Chloride 0.9% 10 Ml Syringe) 10 ml FLUSH ASDIRECTED PRN PRN Reason: Keep Vein Open Zolpidem Tartrate (Zolpidem 5 Mg Tab) 5 mg PO BEDTIME PRN PRN Reason: Sleep Discontinued Medications Dexamethasone (Dexamethasone 4 Mg/Ml Sdv) 4 mg IVPUSH ONETIME ONE Stop: 04/13/21 16:28 Last Admin: 04/13/21 17:24 Dose: 4 mg Documented by: Famotidine (Famotidine 20 Mg Tab) 20 mg PO BID BRIAN Fluorescein Sodium (Fluorescein 1 Mg Ophth Strip) 1 mg EYERT ONETIME ONE Stop: 04/13/21 12:58 Last Admin: 04/13/21 14:40 Dose: Not Given Documented by: Gentamicin Sulfate (Gentamicin 0.3% Ophth Soln 5 Ml Bottle) 1 ml EYERT TID BRIAN Sodium Chloride (Normal Saline) 1,000 mls @ 999 mls/hr IV .BOLUS ONE Stop: 04/13/21 13:09 Last Admin: 04/13/21 12:24 Dose: 999 mls/hr Documented by: Insulin Human Lispro (Insulin Lispro 100 Units/Ml 3 Ml Vial) 0 unit SUBCUT TIDMEALS PRN; Protocol PRN Reason: Hyperglycemia - Exam Quality Assessment: Supplemental Oxygen, DVT Prophylaxis, Skin Breakdown. No: Urine Catheter General: Alert, Cooperative, No Acute Distress HEENT: Pupils Equal, Pupils Reactive, Mucous Membr. Moist/[place] Neck: Supple Lungs: Decreased Breath Sounds, Crackles (At the bases) Cardiovascular: Regular Rate, Regular Rhythm GI/Abdominal Exam: Normal Bowel Sounds, Soft, Non-Tender, No Organomegaly, No Distention, No Abnormal Bruit (Female) Exam: Deferred Back Exam: Normal Inspection, Decreased Range of Motion, Other (Kyphosis) Extremities: Normal Inspection, Normal Range of Motion, Non-Tender, No Pedal Edema, Normal Capillary Refill Peripheral Pulses: 2+: Dorsalis Pedis (L), Dorsalis Pedis (R) Skin: Warm, Dry, Intact Neurological: No New Focal Deficit. No: Normal Gait Psy/Mental Status: Alert, Normal Affect, Normal Mood - Patient Data Lab Results Last 24 hrs: Laboratory Results - last 24 hr 04/13/21 04/13/21 04/13/21 Range/Units 12:17 12:17 12:17 WBC 5.9 (5.0-10.0) 10^3/uL RBC 3.96 L (4.2-5.4) 10^6/uL Hgb 12.0 (12.0-16.0) g/dL Hct 37.7 (37.0-47.0) % MCV 95.2 (80-100) fL MCH 30.3 (27.0-34.0) pg MCHC 31.8 L (33.0-35.0) g/dL Plt Count 113 L (150-450) 10^3/uL Neut % (Auto) 88.7 H (42.2-75.2) % Lymph % (Auto) 4.8 L (20.5-50.1) % [place] % (Auto) 6.5 (2-8) % Eos % (Auto) 0.0 L (1.0-3.0) % Baso % (Auto) 0.0 (0.0-1.0) % ESR 34 H (0-20) mm/hr D-Dimer, Quantitative (0-400) ng/mL Sodium 139 (136-145) mmol/L Potassium 4.2 (3.5-5.1) mmol/L Chloride 101 (98-107) mmol/L Carbon Dioxide 30 (21-32) mmol/L Anion Gap 12.2 (7-13) mEq/L BUN 24 H (7-18) mg/dL Creatinine 0.83 (0.55-1.02) mg/dL Est Cr Clr Drug Dosing TNP Estimated GFR (MDRD) > 60 BUN/Creatinine Ratio 28.9 (No establ ref range) Glucose 113 H (70-99) mg/dL Calcium 8.5 (8.5-10.1) mg/dL Magnesium 2.0 (1.8-2.4) mg/dL Ferritin (8-252) mg/mL Total Bilirubin 0.9 (0.2-1.0) mg/dL AST 40 H (15-37) U/L ALT 24 (14-59) U/L Alkaline Phosphatase 117 H (46-116) U/L Lactate Dehydrogenase (81-234) U/L C-Reactive Protein (0.0-0.9) mg/dL Total Protein 6.8 (6.4-8.2) g/dL Albumin 3.0 L (3.4-5.0) g/dL Globulin 3.8 Albumin/Globulin Ratio 0.79 Free T4 (0.76-1.46) ng/dL TSH, Ultra Sensitive 1.17 (0.36-3.74) uIU/mL Urine Color (YELLOW) Urine Appearance (CLEAR) Urine pH (5.0-9.0) Ur Specific [place] (1.005-1.030) Urine Protein (NEGATIVE) Urine Glucose (UA) (NEGATIVE) Urine Ketones (NEGATIVE) Urine Occult Blood (NEGATIVE) Urine Nitrite (NEGATIVE) Urine Bilirubin (NEGATIVE) Urine Urobilinogen (0.2-1.0) mg/dL Ur Leukocyte Esterase (NEGATIVE) U Hyaline Cast (Auto) Urine RBC (0-5) /HPF Urine WBC (0-5/HPF) /HPF Ur Epithelial Cells (NOT SEEN) /HPF Amorphous Sediment (NOT SEEN) /HPF Urine Bacteria (0-FEW/HPF) /HPF Urine Mucus (NOT SEEN) /LPF Urine Other SARS-CoV-2 RNA (RILEY) (NEGATIVE) 04/13/21 04/13/21 04/13/21 Range/Units 12:17 12:17 12:17 WBC (5.0-10.0) 10^3/uL RBC (4.2-5.4) 10^6/uL Hgb (12.0-16.0) g/dL Hct (37.0-47.0) % MCV (80-100) fL MCH (27.0-34.0) pg MCHC (33.0-35.0) g/dL Plt Count (150-450) 10^3/uL Neut % (Auto) (42.2-75.2) % Lymph % (Auto) (20.5-50.1) % [place] % (Auto) (2-8) % Eos % (Auto) (1.0-3.0) % Baso % (Auto) (0.0-1.0) % ESR (0-20) mm/hr D-Dimer, Quantitative > 5000 H (0-400) ng/mL Sodium (136-145) mmol/L Potassium (3.5-5.1) mmol/L Chloride (98-107) mmol/L Carbon Dioxide (21-32) mmol/L Anion Gap (7-13) mEq/L BUN (7-18) mg/dL Creatinine (0.55-1.02) mg/dL Est Cr Clr Drug Dosing Estimated GFR (MDRD) BUN/Creatinine Ratio (No establ ref range) Glucose (70-99) mg/dL Calcium (8.5-10.1) mg/dL Magnesium (1.8-2.4) mg/dL Ferritin 1491 H (8-252) mg/mL Total Bilirubin (0.2-1.0) mg/dL AST (15-37) U/L ALT (14-59) U/L Alkaline Phosphatase (46-116) U/L Lactate Dehydrogenase 296 H (81-234) U/L C-Reactive Protein 5.0 H (0.0-0.9) mg/dL Total Protein (6.4-8.2) g/dL Albumin (3.4-5.0) g/dL Globulin Albumin/Globulin Ratio Free T4 1.26 (0.76-1.46) ng/dL TSH, Ultra Sensitive (0.36-3.74) uIU/mL Urine Color (YELLOW) Urine Appearance (CLEAR) Urine pH (5.0-9.0) Ur Specific [place] (1.005-1.030) Urine Protein (NEGATIVE) Urine Glucose (UA) (NEGATIVE) Urine Ketones (NEGATIVE) Urine Occult Blood (NEGATIVE) Urine Nitrite (NEGATIVE) Urine Bilirubin (NEGATIVE) Urine Urobilinogen (0.2-1.0) mg/dL Ur Leukocyte Esterase (NEGATIVE) U Hyaline Cast (Auto) Urine RBC (0-5) /HPF Urine WBC (0-5/HPF) /HPF Ur Epithelial Cells (NOT SEEN) /HPF Amorphous Sediment (NOT SEEN) /HPF Urine Bacteria (0-FEW/HPF) /HPF Urine Mucus (NOT SEEN) /LPF Urine Other SARS-CoV-2 RNA (RILEY) (NEGATIVE) 04/13/21 04/13/21 04/14/21 Range/Units 12:19 13:01 06:05 WBC 4.0 L (5.0-10.0) 10^3/uL RBC 3.80 L (4.2-5.4) 10^6/uL Hgb 11.3 L (12.0-16.0) g/dL Hct 36.0 L (37.0-47.0) % MCV 94.7 (80-100) fL MCH 29.7 (27.0-34.0) pg MCHC 31.4 L (33.0-35.0) g/dL Plt Count 107 L (150-450) 10^3/uL Neut % (Auto) 82.1 H (42.2-75.2) % Lymph % (Auto) 9.2 L (20.5-50.1) % [place] % (Auto) 8.7 H (2-8) % Eos % (Auto) 0.0 L (1.0-3.0) % Baso % (Auto) 0.0 (0.0-1.0) % ESR (0-20) mm/hr D-Dimer, Quantitative (0-400) ng/mL Sodium (136-145) mmol/L Potassium (3.5-5.1) mmol/L Chloride (98-107) mmol/L Carbon Dioxide (21-32) mmol/L Anion Gap (7-13) mEq/L BUN (7-18) mg/dL Creatinine (0.55-1.02) mg/dL Est Cr Clr Drug Dosing Estimated GFR (MDRD) BUN/Creatinine Ratio (No establ ref range) Glucose (70-99) mg/dL Calcium (8.5-10.1) mg/dL Magnesium (1.8-2.4) mg/dL Ferritin (8-252) mg/mL Total Bilirubin (0.2-1.0) mg/dL AST (15-37) U/L ALT (14-59) U/L Alkaline Phosphatase (46-116) U/L Lactate Dehydrogenase (81-234) U/L C-Reactive Protein (0.0-0.9) mg/dL Total Protein (6.4-8.2) g/dL Albumin (3.4-5.0) g/dL Globulin Albumin/Globulin Ratio Free T4 (0.76-1.46) ng/dL TSH, Ultra Sensitive (0.36-3.74) uIU/mL Urine Color Yellow (YELLOW) Urine Appearance Clear (CLEAR) Urine pH 7.0 (5.0-9.0) Ur Specific [place] 1.025 (1.005-1.030) Urine Protein 100 H (NEGATIVE) Urine Glucose (UA) Negative (NEGATIVE) Urine Ketones Negative (NEGATIVE) Urine Occult Blood Trace-intact H (NEGATIVE) Urine Nitrite Negative (NEGATIVE) Urine Bilirubin Negative (NEGATIVE) Urine Urobilinogen 1.0 (0.2-1.0) mg/dL Ur Leukocyte Esterase Negative (NEGATIVE) U Hyaline Cast (Auto) Rare Urine RBC 5-10 H (0-5) /HPF Urine WBC 0-5 (0-5/HPF) /HPF Ur Epithelial Cells Few (NOT SEEN) /HPF Amorphous Sediment Many H (NOT SEEN) /HPF Urine Bacteria Not seen (0-FEW/HPF) /HPF Urine Mucus Many H (NOT SEEN) /LPF Urine Other See note SARS-CoV-2 RNA (RILEY) Positive H (NEGATIVE) Result Diagrams: 04/14/21 06:05 04/14/21 06:05 Sepsis Event Note - Evaluation Sepsis Screening Result: No Definite Risk - Focused Exam Vital Signs: Vital Signs Temp Pulse Resp BP Pulse Ox 04/14/21 04:00 36.7 C 22 H 101/87 98 04/14/21 00:00 36.7 C 73 22 H 107/69 97 04/13/21 20:05 108/69 04/13/21 20:00 36.6 C 114 H 25 H 98/78 97 - Problem List Review Problem List Initiated/Reviewed/Updated: Yes - My Orders Last 24 Hours: My Active Orders 04/13/21 12:17 VITAMIN D 25-HYROXY (D2, D3) [REF] Stat 04/13/21 15:16 Orthostatic Vital Signs [RC] ASDIRECTED 04/13/21 15:20 Echo Comp wo Cont [US] Routine 04/13/21 15:21 Acetaminophen [Tylenol Solution 160 MG/5 ML UD Cup] 500 mg PO QID PRN 04/13/21 15:24 Cardiac Monitoring [RC] . DIRECTED Precautions [COMM] Routine 04/13/21 15:26 Cardiac Monitoring [RC] 08,20 Height and Weight [RC] .PRN Intake and Output [RC] ,14,22 Oxygen Therapy [RC] PRN Pulse Oximetry [RC] PRN Up With Assistance [RC] ASDIRECTED VTE/DVT Education [RC] Vital Signs [RC] 20,00,04,08,12,16 Consult to Case Management/Pricer Bagger [CONS] Routine OT Evaluation and Treatment [CONS] Routine PT Evaluation and Treatment [CONS] Routine Respiratory Care Assess and Treatment [CONS] Routine CULTURE SPUTUM + SMEAR [RM] Stat Acetaminophen [TylenoL] 650 mg PO Q4H PRN Acetaminophen/HYDROcodone [[place] 325-10 MG] 1 tab PO Q4H PRN Albuterol/Ipratropium [DuoNeb 3.0-0.5 MG/3 ML] 3 ml NEB Q4H PRN Docusate Sodium/Sennosides [Senna Plus] 1 tab PO BEDTIME PRN HYDROmorphone [Dilaudid] 0.25 mg IVPUSH Q2H PRN Ondansetron [Zofran] 4 mg IVPUSH Q6H PRN Zolpidem [Ambien] 5 mg PO BEDTIME PRN bisacodyL [Dulcolax] 5 mg PO DAILY PRN polyethylene glycoL 3350 [MiraLAX] 17 gm PO DAILY PRN Sequential Compression Device [OM.PC] Per Unit Routine Resuscitation Status Routine 04/13/21 15:27 Antiembolic Devices [RC] PER UNIT ROUTINE RT Aerosol Therapy [RC] ASDIRECTED 04/13/21 16:25 Accu Check [Blood Glucose Check, Bedside] [RC] TIDMEALS Dextrose 50% in Water 50 ml IVPUSH Q15M PRN Glucagon,Human Recombinant [GlucaGen] 1 mg IM Q15M PRN 04/13/21 16:29 Incentive Spirometry [RT Incentive Spirometry] [RC] Q2HWA Dextromethorphan/guaiFENesin [Robitussin DM] 5 ml PO Q4H PRN 04/13/21 17:03 Isolation [COMM] Routine 04/13/21 Dinner Regular Diet [DIET] 04/13/21 17:43 Metoprolol Tartrate [Lopressor] 5 mg IVPUSH Q4H PRN 04/13/21 21:00 Carbidopa/Levodopa [Sinemet 25-100 mg] 1.5 tab PO TID 04/14/21 06:05 BASIC METABOLIC PANEL,BMP [CHEM] AM C-REACTIVE PROTEIN [CHEM] Routine MAGNESIUM [CHEM] AM 04/14/21 08:00 Insulin Lispro [HumaLOG] See Protocol SUBCUT TIDMEALS 04/14/21 09:00 Anastrozole [Anastrozole] 1 mg PO DAILY Aspirin [Halfprin] 81 mg PO DAILY Cholecalciferol (Vitamin D3) [D--ZAHIDA Drops] 3 ml PO DAILY Enoxaparin [Lovenox] 40 mg SUBCUT DAILY Famotidine [Pepcid] 20 mg PO DAILY dexAMETHasone 4 mg PO DAILY 04/15/21 05:00 C-REACTIVE PROTEIN [REF] DAILY 04/15/21 05:11 Chest 1V Frontal [CR] AM BASIC METABOLIC PANEL,BMP [CHEM] AM CBC WITH AUTO DIFF [HEME] AM D-DIMER QUANTITATIVE [COAG] Routine FERRITIN [CHEM] Routine MAGNESIUM [CHEM] AM 04/15/21 06:00 Carotid Comp [US] Routine Echo Comp wo Cont [US] Urgent 04/16/21 05:00 C-REACTIVE PROTEIN [REF] DAILY 04/16/21 05:11 BASIC METABOLIC PANEL,BMP [CHEM] AM CBC WITH AUTO DIFF [HEME] AM MAGNESIUM [CHEM] AM 04/17/21 05:00 C-REACTIVE PROTEIN [REF] DAILY 04/17/21 05:11 BASIC METABOLIC PANEL,BMP [CHEM] AM CBC WITH AUTO DIFF [HEME] AM MAGNESIUM [CHEM] AM 04/18/21 05:00 C-REACTIVE PROTEIN [REF] DAILY 04/18/21 05:11 BASIC METABOLIC PANEL,BMP [CHEM] AM CBC WITH AUTO DIFF [HEME] AM MAGNESIUM [CHEM] AM - Assessment Assessment:: This is an 86-year-old elderly white female with past medical history of hypertension, urinary incontinence, osteoporosis, history of schizophrenia with tardive dyskinesia, history of lymphedema to the right arm status post right breast mastectomy, right hip fracture status post hip replacement, and moderate to severe Parkinson's disease who was brought in by EMS from the assisted living facility for evaluation of a fall that took place this morning. Assessment: Acute: Syncope: Defecation syncope/vasovagal versus atrial flutter with rapid ventricular response; negative for orthostasis New onset of atrial flutter/paroxysmal atrial flutter with thyroid panel within normal limits; HR is currently controlled; CHADVASC score of 4 (age greater than 75, female, and hypertension) and and HASBLED score of 2 (moderate risk for major bleeding) Recurrent fall Generalized weakness and unsteadiness likely due to severe Parkinson's disease COVID-19 infection with hypoxia; she is fully vaccinated Hypoxia with O2 sat in in the 70s at the assisted living facility secondary to COVID-19 infection requiring supplemental O2; she remains on 3 L nasal cannula Mild thrombocytopenia with platelets count of 113; now 107 Elevated BUN of 24; improved to 21 Mild hyperglycemia glucose 113; carries no history of glucose intolerance or diabetes; remains in the low teens Mildly elevated AST of 40 Alkaline phosphatase of 117 Mild hypoalbuminemia with albumin of 3 Elevated D-dimer greater than 5000 likely due to bilateral pleural effusions; on lovenox 40 mg subQ daily for DVT prophylaxis Elevated ferritin of 1491 Elevated alkaline phosphatase of 117 Elevated LDH of 296 Elevated CRP of 8.9 Advance Parkinson's disease Nonspecific bilateral pleural effusions noted on chest CT scan Back pain status post fall likely exacerbation of compression deformities; CT scan demonstrates no acute fracture Severe compression deformities on T6 and T11 and less severe compression deformity at T2 noted on chest CT scan taken in the emergency department Chronic: Hypertension Urinary incontinence Osteoporosis History of schizophrenia with tardive dyskinesia History of lymphedema to the right arm status post right breast mastectomy Right hip fracture status post hip replacement Moderate to severe Parkinson's disease - Plan Plan:: Plan: Continue current treatment with telemetry Isolation protocol due to COVID-19 infection Routine a.m. labs Continue to monitor inflammatory markers Sputum culture with Gram stain As needed expectorant and decongestant RT to assess and treat EKG yesterday showed sinus rhythm but on telemetry she had paroxysmal atrial flutter with RVR She had SVT yesterday with heart rate as high as over 200s; terminated by one- time dose of Lopressor 5 mg IV push Carotid studies and 2D echo to be done tomorrow Vitamin D level pending One-time dose of Lasix 10 mg IV push for bilateral pleural effusions Accu-Chek AC with insulin sliding scale Continue low-dose low-dose dexamethasone daily for COVID-19 treatment Fall precautions Negative for orthostasis PT/OT when appropriate log chain worker/case management for discharge planning Patient would be very high risk for major bleeding and falls due to advanced Parkinson's disease She is already on aspirin and with her new onset of atrial flutter, she would be high risk for developing stroke: CHADVASC score of 4 with a HASBLED of 2. We will call her son to discuss anticoagulation after discharge Length of stay: Likely less than 96 hours Discharge plan: Pending evaluation by PT and OT Prognosis guarded to good CODE STATUS per patient: DNR/DNI 0912: Called her son Yeyo and went over risks and benefits of anticoagulation. Expressed my concerns of her being on anticoagulation after discharge due to her significant Parkinson's disease with unstable gait and tremors. He agreed we should just keep her on high-dose aspirin for stroke prophylaxis. He told me that in the past Leonor has had episode of fast heart rate but not sure if it was atrial fibrillation or atrial flutter. I also mentioned to him that we will start her on low-dose propanolol which should help take care of both her heart rate and tremors. DVT/stroke prophylaxis: Currently on Lovenox 40 mg subcu due to underlying COVID-19 infection with elevated D-dimer however on discharge she will be on 162 mg p.o. twice daily. For now, we will stick to her home maintenance dose of aspirin 81 mg p.o. daily
[2021-04-14 06:44] LABS: ANION GAP 11.4 mEq/L (7-13); CHLORIDE,CL 103 mmol/L (98-107); SODIUM,NA 137 mmol/L (136-145)
[2021-04-14] MEDS ORDERED: Acetaminophen Soln 160 MG/5 ML UD Cup PO PRN ×2 (07:25→10:27)
[2021-04-14] MEDS ORDERED: Magnesium Hydroxide 400 MG/5 ML Susp 30 ML Cup PO PRN (07:25)
[2021-04-14] MEDS: Dexamethasone 4 MG Tab PO SCH (08:44)
[2021-04-14] MEDS: Insulin Lispro 100 Units/ML 3 ML Vial SUBCUT SCH ×3 (08:44→17:27)
[2021-04-14] MEDS: Famotidine 20 MG Tab PO SCH (08:44)
[2021-04-14] MEDS: Carbidopa/Levodopa 25-100 MG Tab PO SCH ×3 (08:44→21:17)
[2021-04-14] MEDS: Enoxaparin 40 MG/0.4 ML Syringe SUBCUT SCH (08:46)
[2021-04-14] MEDS ORDERED: ANASTROZOLE 1 MG PO SCH (09:00)
[2021-04-14] MEDS ORDERED: Metoprolol Tartrate 25 MG Tab PO SCH (09:00)
[2021-04-14] MEDS ORDERED: Aspirin 81 MG Tab.EC PO SCH (09:00)
[2021-04-14] MEDS ORDERED: Propranolol 60 MG Cap.ER PO ONE (09:31)
[2021-04-14] MEDS ORDERED: Furosemide 20 MG/2 ML VIAL IVPUSH ONE (12:00)
[2021-04-14] MEDS: Propranolol 10 MG Tab PO SCH (21:18)
--- NOTE | 2021-04-15 06:28 | PCM.PN ---
- General Info Date of Service: 04/15/21 Admission Dx/Problem (Free Text): Admission Diagnosis/Problem Admission Diagnosis/Problem Hypoxia Subjective Update: Patient had on uneventful night. She is now completely off supplemental O2 on room air satting adequately between 91 to 94%. She has no complaints. Her inflammatory markers has improved to 5.7 with stable blood glucose level. She has no acute issues or complaints this morning. Patient states she feels fine. Functional Status: Reports: Pain Controlled, Tolerating Diet, Urinating, Incentive Spirometry. Denies: New Symptoms - Review of Systems General: Denies: Fever, Weakness, Fatigue, Malaise, Chills HEENT: Denies: Contact Lenses Pulmonary: Denies: Shortness of Breath, Cough, Sputum, Wheezing Cardiovascular: Denies: Chest Pain, Dyspnea on Exertion, Lightheadedness Gastrointestinal: Denies: Abdominal Pain, Nausea, Vomiting Genitourinary: Reports: Frequency, Incontinence Musculoskeletal: Denies: Neck Pain, Back Pain, Joint Pain Skin: Denies: Bruising, Rash Neurological: Reports: Gait Disturbance. Denies: Dizziness Psychiatric: Denies: Confusion, Depression, Mood Lability, Anxiety, Agitation - Patient Data Vitals - Most Recent: Last Vital Signs Temp 36.9 C 04/15/21 03:53 Pulse 64 04/15/21 03:53 Resp 18 04/15/21 03:53 BP 140/83 04/15/21 03:53 Pulse Ox 94 L 04/15/21 03:53 Orthostatic Blood Pressure [ 115/67 Standing] Orthostatic Blood Pressure [ 135/77 Sitting] Orthostatic Blood Pressure [ 132/87 Supine] Weight - Most Recent: 38.918 kg I&O - Last 24 Hours: Intake & Output 04/14/21 04/14/21 04/15/21 14:59 22:59 06:59 Intake Total 580 720 200 Balance 580 720 200 Lab Results Last 24 Hours: Laboratory Results - last 24 hr 04/14/21 04/14/21 04/14/21 Range/Units 06:05 06:05 06:05 WBC 4.0 L (5.0-10.0) 10^3/uL RBC 3.80 L (4.2-5.4) 10^6/uL Hgb 11.3 L (12.0-16.0) g/dL Hct 36.0 L (37.0-47.0) % MCV 94.7 (80-100) fL MCH 29.7 (27.0-34.0) pg MCHC 31.4 L (33.0-35.0) g/dL Plt Count 107 L (150-450) 10^3/uL Neut % (Auto) 82.1 H (42.2-75.2) % Lymph % (Auto) 9.2 L (20.5-50.1) % Towns % (Auto) 8.7 H (2-8) % Eos % (Auto) 0.0 L (1.0-3.0) % Baso % (Auto) 0.0 (0.0-1.0) % Sodium 137 (136-145) mmol/L Potassium 4.4 (3.5-5.1) mmol/L Chloride 103 (98-107) mmol/L Carbon Dioxide 27 (21-32) mmol/L Anion Gap 11.4 (7-13) mEq/L BUN 21 H (7-18) mg/dL Creatinine 0.81 (0.55-1.02) mg/dL Est Cr Clr Drug Dosing 31.20 mL/min Estimated GFR (MDRD) > 60 Glucose 111 H (70-99) mg/dL POC Glucose (70-99) mg/dL Calcium 7.7 L (8.5-10.1) mg/dL Magnesium 2.0 (1.8-2.4) mg/dL C-Reactive Protein 8.9 H (0.0-0.9) mg/dL 04/14/21 04/14/21 04/14/21 Range/Units 08:14 12:07 17:09 WBC (5.0-10.0) 10^3/uL RBC (4.2-5.4) 10^6/uL Hgb (12.0-16.0) g/dL Hct (37.0-47.0) % MCV (80-100) fL MCH (27.0-34.0) pg MCHC (33.0-35.0) g/dL Plt Count (150-450) 10^3/uL Neut % (Auto) (42.2-75.2) % Lymph % (Auto) (20.5-50.1) % Towns % (Auto) (2-8) % Eos % (Auto) (1.0-3.0) % Baso % (Auto) (0.0-1.0) % Sodium (136-145) mmol/L Potassium (3.5-5.1) mmol/L Chloride (98-107) mmol/L Carbon Dioxide (21-32) mmol/L Anion Gap (7-13) mEq/L BUN (7-18) mg/dL Creatinine (0.55-1.02) mg/dL Est Cr Clr Drug Dosing mL/min Estimated GFR (MDRD) Glucose (70-99) mg/dL POC Glucose 98 105 H 108 H (70-99) mg/dL Calcium (8.5-10.1) mg/dL Magnesium (1.8-2.4) mg/dL C-Reactive Protein (0.0-0.9) mg/dL Med Orders - Current: Current Medications Acetaminophen (Acetaminophen Soln 160 Mg/5 Ml Ud Cup) 500 mg PO QID PRN PRN Reason: Pain Acetaminophen (Acetaminophen 325 Mg Tab) 650 mg PO Q4H PRN PRN Reason: Pain (Mild 1-3)/fever Last Admin: 04/14/21 21:19 Dose: 650 mg Documented by: Acetaminophen (Acetaminophen Soln 160 Mg/5 Ml Ud Cup) 480 mg PO BID PRN PRN Reason: Pain Hydrocodone Bitart/Acetaminophen (Acetaminophen/Hydrocodone 325-10 Mg Tab) 1 tab PO Q4H PRN PRN Reason: Pain (moderate 4-6) Albuterol/Ipratropium (Albuterol/Ipratropium 3.0-0.5 Mg/3 Ml Neb Soln) 3 ml NEB Q4H PRN PRN Reason: shortness of breath/wheezing Aspirin (Aspirin 81 Mg Tab.Ec) 81 mg PO DAILY BRIAN Bisacodyl (Bisacodyl 5 Mg Tab) 5 mg PO DAILY PRN PRN Reason: Constipation Carbidopa/Levodopa (Carbidopa/Levodopa 25-100 Mg Tab) 1.5 tab PO TID BRIAN Last Admin: 04/14/21 21:17 Dose: 1.5 tab Documented by: Dexamethasone (Dexamethasone 4 Mg Tab) 4 mg PO DAILY [facility] Stop: 04/23/21 09:01 Last Admin: 04/14/21 08:44 Dose: 4 mg Documented by: Dextrose/Water (50% Dextrose In Water 50 Ml Syringe) 50 ml IVPUSH Q15M PRN PRN Reason: Hypoglycemia Enoxaparin Sodium (Enoxaparin 40 Mg/0.4 Ml Syringe) 40 mg SUBCUT DAILY [facility] Last Admin: 04/14/21 08:46 Dose: 40 mg Documented by: Famotidine (Famotidine 20 Mg Tab) 20 mg PO DAILY [facility] Last Admin: 04/14/21 08:44 Dose: 20 mg Documented by: Glucagon (Glucagon,Human Recombinant 1 Mg Vial) 1 mg IM Q15M PRN PRN Reason: Hypoglycemia Guaifenesin/Phenylephrine HCl (Guaifenesin/Dextromethorphan 100-10 Mg/5 Ml Soln 5 Ml Cup) 5 ml PO Q4H PRN PRN Reason: Cough Hydromorphone HCl (Hydromorphone 0.5 Mg/0.5 Ml Syringe) 0.25 mg IVPUSH Q2H PRN PRN Reason: Pain (severe 7-10) Insulin Human Lispro (Insulin Lispro 100 Units/Ml 3 Ml Vial) 0 unit SUBCUT TID MEALS [facility]; Protocol Last Admin: 04/14/21 17:27 Dose: Not Given Documented by: Magnesium Hydroxide (Magnesium Hydroxide 400 Mg/5 Ml Susp 30 Ml Cup) 30 ml PO DAILY PRN PRN Reason: Constipation Metoprolol Tartrate (Metoprolol Tartrate 5 Mg/5 Ml Sdv) 5 mg IVPUSH Q4H PRN PRN Reason: Tachycardia Last Admin: 04/13/21 18:01 Dose: 5 mg Documented by: Non-Formulary Medication (Anastrozole [Anastrozole]) 1 mg PO DAILY [facility] Non-Formulary Medication (Cholecalciferol (Vitamin D3) [D-Vi-Steffen Drops]) 3 ml PO DAILY [facility] Ondansetron HCl (Ondansetron 4 Mg/2 Ml Sdv) 4 mg IVPUSH Q6H PRN PRN Reason: Nausea/Vomiting Polyethylene Glycol (Polyethylene Glycol 3350 Powder 17 Gm Packet) 17 gm PO DAILY PRN PRN Reason: Constipation Propranolol HCl (Propranolol 10 Mg Tab) 30 mg PO BID [facility] Last Admin: 04/14/21 21:18 Dose: 30 mg Documented by: Senna/Docusate Sodium (Docusate Sodium/Sennosides 50-8.6 Mg Tab) 1 tab PO BEDTIME PRN PRN Reason: Constipation Sodium Chloride (Sodium Chloride 0.9% 10 Ml Syringe) 10 ml FLUSH ASDIRECTED PRN PRN Reason: Keep Vein Open Zolpidem Tartrate (Zolpidem 5 Mg Tab) 5 mg PO BEDTIME PRN PRN Reason: Sleep Discontinued Medications Acetaminophen (Acetaminophen Soln 160 Mg/5 Ml Ud Cup) 500 mg PO BID PRN PRN Reason: Pain Aspirin (Aspirin 81 Mg Tab.Ec) 81 mg PO DAILY [facility] Last Admin: 04/14/21 08:44 Dose: 81 mg Documented by: Aspirin (Aspirin 325 Mg Tab.Ec) 325 mg PO DAILY [facility] Dexamethasone (Dexamethasone 4 Mg/Ml Sdv) 4 mg IVPUSH ONETIME ONE Stop: 04/13/21 16:28 Last Admin: 04/13/21 17:24 Dose: 4 mg Documented by: Famotidine (Famotidine 20 Mg Tab) 20 mg PO BID [facility] Fluorescein Sodium (Fluorescein 1 Mg Ophth Strip) 1 mg EYERT ONETIME ONE Stop: 04/13/21 12:58 Last Admin: 04/13/21 14:40 Dose: Not Given Documented by: Furosemide (Furosemide 20 Mg/2 Ml Vial) 10 mg IVPUSH ONETIME ONE Stop: 04/14/21 12:01 Last Admin: 04/14/21 12:12 Dose: 10 mg Documented by: Gentamicin Sulfate (Gentamicin 0.3% Ophth Soln 5 Ml Bottle) 1 ml EYERT TID [facility] Sodium Chloride (Normal Saline) 1,000 mls @ 999 mls/hr IV .BOLUS ONE Stop: 04/13/21 13:09 Last Admin: 04/13/21 12:24 Dose: 999 mls/hr Documented by: Insulin Human Lispro (Insulin Lispro 100 Units/Ml 3 Ml Vial) 0 unit SUBCUT TIDMEALS PRN; Protocol PRN Reason: Hyperglycemia Metoprolol Tartrate (Metoprolol Tartrate 25 Mg Tab) 12.5 mg PO Q12H [facility] Last Admin: 04/14/21 09:32 Dose: 12.5 mg Documented by: Propranolol HCl (Propranolol 60 Mg Cap.Er) 40 mg PO ONETIME ONE Stop: 04/14/21 09:32 - Exam Quality Assessment: DVT Prophylaxis, Skin Breakdown. No: Supplemental Oxygen General: Alert, Cooperative, No Acute Distress HEENT: Pupils Equal, Pupils Reactive, EOMI, Mucous Membr. Moist/[place] Lungs: Normal Respiratory Effort, Decreased Breath Sounds Cardiovascular: Regular Rate, Regular Rhythm GI/Abdominal Exam: Normal Bowel Sounds, Soft, Non-Tender, No Organomegaly, No Distention, No Abnormal Bruit (Female) Exam: Deferred Back Exam: Normal Inspection, Decreased Range of Motion, Other Extremities: Normal Inspection, Normal Range of Motion, Non-Tender, No Pedal Edema, Normal Capillary Refill Peripheral Pulses: 2+: Dorsalis Pedis (L), Dorsalis Pedis (R) Skin: Warm, Dry, Intact Neurological: No New Focal Deficit Psy/Mental Status: Alert, Normal Affect, Normal Mood - Patient Data Lab Results Last 24 hrs: Laboratory Results - last 24 hr 04/14/21 04/14/21 04/14/21 Range/Units 06:05 06:05 06:05 WBC 4.0 L (5.0-10.0) 10^3/uL RBC 3.80 L (4.2-5.4) 10^6/uL Hgb 11.3 L (12.0-16.0) g/dL Hct 36.0 L (37.0-47.0) % MCV 94.7 (80-100) fL MCH 29.7 (27.0-34.0) pg MCHC 31.4 L (33.0-35.0) g/dL Plt Count 107 L (150-450) 10^3/uL Neut % (Auto) 82.1 H (42.2-75.2) % Lymph % (Auto) 9.2 L (20.5-50.1) % Towns % (Auto) 8.7 H (2-8) % Eos % (Auto) 0.0 L (1.0-3.0) % Baso % (Auto) 0.0 (0.0-1.0) % Sodium 137 (136-145) mmol/L Potassium 4.4 (3.5-5.1) mmol/L Chloride 103 (98-107) mmol/L Carbon Dioxide 27 (21-32) mmol/L Anion Gap 11.4 (7-13) mEq/L BUN 21 H (7-18) mg/dL Creatinine 0.81 (0.55-1.02) mg/dL Est Cr Clr Drug Dosing 31.20 mL/min Estimated GFR (MDRD) > 60 Glucose 111 H (70-99) mg/dL POC Glucose (70-99) mg/dL Calcium 7.7 L (8.5-10.1) mg/dL Magnesium 2.0 (1.8-2.4) mg/dL C-Reactive Protein 8.9 H (0.0-0.9) mg/dL 04/14/21 04/14/21 04/14/21 Range/Units 08:14 12:07 17:09 WBC (5.0-10.0) 10^3/uL RBC (4.2-5.4) 10^6/uL Hgb (12.0-16.0) g/dL Hct (37.0-47.0) % MCV (80-100) fL MCH (27.0-34.0) pg MCHC (33.0-35.0) g/dL Plt Count (150-450) 10^3/uL Neut % (Auto) (42.2-75.2) % Lymph % (Auto) (20.5-50.1) % Towns % (Auto) (2-8) % Eos % (Auto) (1.0-3.0) % Baso % (Auto) (0.0-1.0) % Sodium (136-145) mmol/L Potassium (3.5-5.1) mmol/L Chloride (98-107) mmol/L Carbon Dioxide (21-32) mmol/L Anion Gap (7-13) mEq/L BUN (7-18) mg/dL Creatinine (0.55-1.02) mg/dL Est Cr Clr Drug Dosing mL/min Estimated GFR (MDRD) Glucose (70-99) mg/dL POC Glucose 98 105 H 108 H (70-99) mg/dL Calcium (8.5-10.1) mg/dL Magnesium (1.8-2.4) mg/dL C-Reactive Protein (0.0-0.9) mg/dL Result Diagrams: 04/15/21 06:32 04/15/21 06:32 Sepsis Event Note - Evaluation Sepsis Screening Result: No Definite Risk - Focused Exam Vital Signs: Vital Signs Temp Pulse Pulse Resp BP BP Pulse Ox 04/15/21 03:53 36.9 C 64 18 140/83 94 L 04/14/21 23:39 37.1 C 69 22 H 113/71 92 L 04/14/21 21:18 77 113/71 04/14/21 20:00 36.8 C 77 20 113/71 91 L - Problem List Review Problem List Initiated/Reviewed/Updated: Yes - My Orders Last 24 Hours: My Active Orders 04/14/21 07:24 Resuscitation Status Routine 04/14/21 07:25 Magnesium Hydroxide [Milk of Magnesia] 30 ml PO DAILY PRN 04/14/21 08:00 Insulin Lispro [HumaLOG] See Protocol SUBCUT TIDMEALS 04/14/21 09:00 Anastrozole [Anastrozole] 1 mg PO DAILY Cholecalciferol (Vitamin D3) [D--STEFFEN Drops] 3 ml PO DAILY Enoxaparin [Lovenox] 40 mg SUBCUT DAILY Famotidine [Pepcid] 20 mg PO DAILY dexAMETHasone 4 mg PO DAILY 04/14/21 10:27 Acetaminophen [Tylenol Solution 160 MG/5 ML UD Cup] 480 mg PO BID PRN 04/14/21 17:20 Dietary Supplements [RC] TIDMEALS 04/14/21 21:00 Propranolol [Inderal] 30 mg PO BID 04/15/21 05:11 Chest 1V Frontal [CR] AM BASIC METABOLIC PANEL,BMP [CHEM] AM CBC WITH AUTO DIFF [HEME] AM D-DIMER QUANTITATIVE [COAG] Routine FERRITIN [CHEM] Routine MAGNESIUM [CHEM] AM 04/15/21 06:00 Carotid Comp [US] Routine Echo Comp wo Cont [US] Urgent C-REACTIVE PROTEIN [CHEM] Routine 04/15/21 09:00 Aspirin [Halfprin] 81 mg PO DAILY 04/16/21 05:00 C-REACTIVE PROTEIN [REF] DAILY 04/16/21 05:11 BASIC METABOLIC PANEL,BMP [CHEM] AM CBC WITH AUTO DIFF [HEME] AM MAGNESIUM [CHEM] AM 04/17/21 05:00 C-REACTIVE PROTEIN [REF] DAILY 04/17/21 05:11 BASIC METABOLIC PANEL,BMP [CHEM] AM CBC WITH AUTO DIFF [HEME] AM MAGNESIUM [CHEM] AM 04/18/21 05:00 C-REACTIVE PROTEIN [REF] DAILY 04/18/21 05:11 BASIC METABOLIC PANEL,BMP [CHEM] AM CBC WITH AUTO DIFF [HEME] AM MAGNESIUM [CHEM] AM - Assessment Assessment:: This is an 86-year-old elderly white female with past medical history of hypertension, urinary incontinence, osteoporosis, history of schizophrenia with tardive dyskinesia, history of lymphedema to the right arm status post right breast mastectomy, right hip fracture status post hip replacement, and moderate to severe Parkinson's disease who was brought in by EMS from the assisted living facility for evaluation of a fall that took place this morning. Assessment: Acute: Syncope: Defecation syncope/vasovagal versus atrial flutter with rapid ventricular response; negative for orthostasis New onset of atrial flutter/paroxysmal atrial flutter with thyroid panel within normal limits; HR is currently controlled; CHADVASC score of 4 (age greater than 75, female, and hypertension) and and HASBLED score of 2 (moderate risk for ma fred bleeding) Recurrent fall Generalized weakness and unsteadiness likely due to severe Parkinson's disease COVID-19 infection with hypoxia; she is fully vaccinated Hypoxia with O2 sat in in the 70s at the assisted living facility secondary to COVID-19 infection requiring supplemental O2; she remains on 3 L nasal cannula Mild thrombocytopenia with platelets count of 113; now at 123 Elevated BUN of 24; is slightly went up to 33 Mild hyperglycemia glucose 113; carries no history of glucose intolerance or diabetes; remains in the low teens Mildly elevated AST of 40 Alkaline phosphatase of 117 Mild hypoalbuminemia with albumin of 3 Elevated D-dimer greater than 5000 likely due to bilateral pleural effusions; on lovenox 40 mg subQ daily for DVT prophylaxis Elevated ferritin of 1491; now at 373 Elevated alkaline phosphatase of 117 Elevated LDH of 296 Elevated CRP of 8.9; now at 5.7 Advance Parkinson's disease Nonspecific bilateral pleural effusions noted on chest CT scan Back pain status post fall likely exacerbation of compression deformities; CT scan demonstrates no acute fracture Severe compression deformities on T6 and T11 and less severe compression deformity at T2 noted on chest CT scan taken in the emergency department Chronic: Hypertension Urinary incontinence Osteoporosis History of schizophrenia with tardive dyskinesia History of lymphedema to the right arm status post right breast mastectomy Right hip fracture status post hip replacement Moderate to severe Parkinson's disease - Plan Plan:: Plan: Continue current treatment with telemetry Isolation protocol due to COVID-19 infection Routine a.m. labs Continue to monitor inflammatory markers Sputum culture with Gram stain As needed expectorant and decongestant RT to assess and treat Carotid studies and 2D echo to be completed today Vitamin D level pending Accu-Chek AC with insulin sliding scale Continue low-dose dexamethasone daily for COVID-19 treatment Fall precautions PT/OT when appropriate relay worker/case management for discharge planning Patient would be very high risk for major bleeding and falls due to advanced Parkinson's disease She is already on Aspirin and with her new onset of atrial flutter, she would be high risk for developing stroke: CHADVASC score of 4 with a HASBLED of 2. We will call her son to discuss anticoagulation after discharge Length of stay: Likely less than 96 hours Discharge plan: Pending evaluation by PT/OT as well as carotid and 2D echo results Prognosis is good CODE STATUS per patient: DNR/DNI
[2021-04-15 07:09] LABS: ANION GAP 12.4 mEq/L (7-13); CHLORIDE,CL 104 mmol/L (98-107); SODIUM,NA 139 mmol/L (136-145)
[2021-04-15] MEDS ORDERED: Aspirin 325 MG Tab.EC PO SCH (09:00)
[2021-04-15] MEDS: Famotidine 20 MG Tab PO SCH (09:03)
[2021-04-15] MEDS: Aspirin 81 MG Tab.EC PO SCH (09:04)
[2021-04-15] MEDS: Dexamethasone 4 MG Tab PO SCH (09:04)
[2021-04-15] MEDS: Propranolol 10 MG Tab PO SCH ×2 (09:04→20:41)
[2021-04-15] MEDS: Carbidopa/Levodopa 25-100 MG Tab PO SCH ×3 (09:04→20:42)
[2021-04-15] MEDS: Enoxaparin 40 MG/0.4 ML Syringe SUBCUT SCH (09:07)
[2021-04-15] MEDS: Insulin Lispro 100 Units/ML 3 ML Vial SUBCUT SCH ×3 (09:10→17:51)
[2021-04-15] MEDS ORDERED: Acetaminophen 500 MG Tab PO PRN (09:45)
--- NOTE | 2021-04-15 11:07 | CR ---
PROCEDURE INFORMATION: Exam: XR Chest Exam date and time: 04/15/2021 9:39 AM Age: 86 years old Clinical indication: Condition or disease; Other: Covid; Additional info: Covid-19 TECHNIQUE: Imaging protocol: XR of the chest. Views: 1 view. COMPARISON: CT Chest wo Cont, Chest wo Cont 04/13/2021 1:36 PM FINDINGS: Lungs: Bilaterally decreased volume loss. Posterior lung bases not optimally visualized. Hazy bilateral basilar densities. No lobar consolidation. Pleural spaces: Unremarkable. No pleural effusion. No pneumothorax. Heart/Mediastinum: Unremarkable. No cardiomegaly. Bones/joints: Thoracic degenerative disease. Unremarkable. IMPRESSION: Bibasilar hazy infiltrates versus vascular crowding secondary to decreased volume loss.
--- NOTE | 2021-04-15 12:00 | US ---
PROCEDURE INFORMATION: Exam: US Duplex Bilateral Extracranial Arteries Exam date and time: 04/15/2021 10:32 AM Age: 86 years old Clinical indication: Syncope and collapse TECHNIQUE: Imaging protocol: Real-time Duplex ultrasound scan of the bilateral carotid and vertebral arteries combining arana scale, color Doppler and spectral waveform analysis. Bilateral exam. COMPARISON: CT Head wo Cont 04/13/2021 1:36 PM FINDINGS: Right common carotid artery: 124 cm/s. Mild smooth plaque distal CCA. No occlusion or stenosis. Waveforms are normal. Right internal carotid artery: 71.3 cm/s. Mild smooth plaque at the carotid bulb and proximal right ICA. No occlusion or stenosis. Waveforms are normal. Right ICA/CCA ratio: 0.57. Within normal limits. Right external carotid artery: 101 cm/s No stenosis in the origin. Right vertebral artery: Unremarkable. Antegrade flow. Left common carotid artery: 145 cm/s. Unremarkable. No occlusion or stenosis. Waveforms are normal. Left internal carotid artery: 95.2 cm/s. Mild smooth plaque at the carotid bulb and left proximal ICA. No occlusion or stenosis. Waveforms are normal. Left ICA/CCA ratio: 0.66. Within normal limits. Left external carotid artery: 80.6 cm/s. No stenosis in the origin. Left vertebral artery: Unremarkable. Antegrade flow. IMPRESSION: No carotid arterial stenosis. REFERENCES: SRU CRITERIA. The degree of internal carotid artery stenosis is based on criteria defined by the Society of [employer]ologists in Ultras[employer] (SRU). Normal is no stenosis. Mild is less than 50% stenosis. Moderate is 50-69% stenosis. Severe is greater than 69% stenosis to near occlusion. Near occlusion is a markedly narrowed lumen. Total occlusion is no detectable patent lumen.
[2021-04-15] MEDS: Acetaminophen Soln 160 MG/5 ML UD Cup PO SCH ×2 (12:09→20:43)
--- NOTE | 2021-04-16 06:40 | PCM.PN ---
- General Info Date of Service: 04/16/21 Admission Dx/Problem (Free Text): Admission Diagnosis/Problem Admission Diagnosis/Problem Hypoxia Subjective Update: Patient states that she feels back to her normal self today. Patient denies any lightheadedness, dizziness, syncope. Patient denies any palpitations, chest pains pressures, shortness of breath. Patient denies any cough, fevers or chills. Patient states that her back pain is well controlled Tylenol that she is used minimal as needed opioid medications. Patient stated she believes she feels strong enough to back to assisted living today. - Review of Systems Systems Review Comment:: Review of systems is negative except for those listed above - Patient Data Vitals - Most Recent: Last Vital Signs Temp 97.4 F 04/16/21 03:44 Pulse 63 04/16/21 03:44 Resp 18 04/16/21 03:44 BP 136/76 04/16/21 03:44 Pulse Ox 99 04/16/21 03:44 Orthostatic Blood Pressure [ 115/67 Standing] Orthostatic Blood Pressure [ 135/77 Sitting] Orthostatic Blood Pressure [ 132/87 Supine] Weight - Most Recent: 85 lb 12.8 oz I&O - Last 24 Hours: Intake & Output 04/15/21 04/15/21 04/16/21 14:59 22:59 06:59 Intake Total 300 250 Balance 300 250 Lab Results Last 24 Hours: Laboratory Results - last 24 hr 04/15/21 04/15/21 04/15/21 Range/Units 06:32 06:32 06:32 WBC 5.3 (5.0-10.0) 10^3/uL RBC 3.91 L (4.2-5.4) 10^6/uL Hgb 11.7 L (12.0-16.0) g/dL Hct 35.9 L (37.0-47.0) % MCV 91.8 (80-100) fL MCH 29.9 (27.0-34.0) pg MCHC 32.6 L (33.0-35.0) g/dL Plt Count 123 L (150-450) 10^3/uL Neut % (Auto) 82.6 H (42.2-75.2) % Lymph % (Auto) 8.7 L (20.5-50.1) % [place] % (Auto) 8.7 H (2-8) % Eos % (Auto) 0.0 L (1.0-3.0) % Baso % (Auto) 0.0 (0.0-1.0) % D-Dimer, Quantitative > 5000 H (0-400) ng/mL Sodium 139 (136-145) mmol/L Potassium 4.4 (3.5-5.1) mmol/L Chloride 104 (98-107) mmol/L Carbon Dioxide 27 (21-32) mmol/L Anion Gap 12.4 (7-13) mEq/L BUN 33 H (7-18) mg/dL Creatinine 0.70 (0.55-1.02) mg/dL Est Cr Clr Drug Dosing 36.10 mL/min Estimated GFR (MDRD) > 60 Glucose 93 (70-99) mg/dL POC Glucose (70-99) mg/dL Calcium 8.0 L (8.5-10.1) mg/dL Magnesium 2.2 (1.8-2.4) mg/dL Ferritin (8-252) mg/mL C-Reactive Protein (0.0-0.9) mg/dL 04/15/21 04/15/21 04/15/21 Range/Units 06:32 06:32 08:45 WBC (5.0-10.0) 10^3/uL RBC (4.2-5.4) 10^6/uL Hgb (12.0-16.0) g/dL Hct (37.0-47.0) % MCV (80-100) fL MCH (27.0-34.0) pg MCHC (33.0-35.0) g/dL Plt Count (150-450) 10^3/uL Neut % (Auto) (42.2-75.2) % Lymph % (Auto) (20.5-50.1) % [place] % (Auto) (2-8) % Eos % (Auto) (1.0-3.0) % Baso % (Auto) (0.0-1.0) % D-Dimer, Quantitative (0-400) ng/mL Sodium (136-145) mmol/L Potassium (3.5-5.1) mmol/L Chloride (98-107) mmol/L Carbon Dioxide (21-32) mmol/L Anion Gap (7-13) mEq/L BUN (7-18) mg/dL Creatinine (0.55-1.02) mg/dL Est Cr Clr Drug Dosing mL/min Estimated GFR (MDRD) Glucose (70-99) mg/dL POC Glucose 88 (70-99) mg/dL Calcium (8.5-10.1) mg/dL Magnesium (1.8-2.4) mg/dL Ferritin 373 H (8-252) mg/mL C-Reactive Protein 5.7 H (0.0-0.9) mg/dL 04/15/21 04/15/21 Range/Units 12:03 17:22 WBC (5.0-10.0) 10^3/uL RBC (4.2-5.4) 10^6/uL Hgb (12.0-16.0) g/dL Hct (37.0-47.0) % MCV (80-100) fL MCH (27.0-34.0) pg MCHC (33.0-35.0) g/dL Plt Count (150-450) 10^3/uL Neut % (Auto) (42.2-75.2) % Lymph % (Auto) (20.5-50.1) % [place] % (Auto) (2-8) % Eos % (Auto) (1.0-3.0) % Baso % (Auto) (0.0-1.0) % D-Dimer, Quantitative (0-400) ng/mL Sodium (136-145) mmol/L Potassium (3.5-5.1) mmol/L Chloride (98-107) mmol/L Carbon Dioxide (21-32) mmol/L Anion Gap (7-13) mEq/L BUN (7-18) mg/dL Creatinine (0.55-1.02) mg/dL Est Cr Clr Drug Dosing mL/min Estimated GFR (MDRD) Glucose (70-99) mg/dL POC Glucose 94 114 H (70-99) mg/dL Calcium (8.5-10.1) mg/dL Magnesium (1.8-2.4) mg/dL Ferritin (8-252) mg/mL C-Reactive Protein (0.0-0.9) mg/dL Med Orders - Current: Current Medications Acetaminophen (Acetaminophen Soln 160 Mg/5 Ml Ud Cup) 480 mg PO BID [facility] Last Admin: 04/15/21 20:43 Dose: 480 mg Documented by: Acetaminophen (Acetaminophen 500 Mg Tab) 500 mg PO Q8H PRN PRN Reason: back pain Hydrocodone Bitart/Acetaminophen (Acetaminophen/Hydrocodone 325-10 Mg Tab) 1 tab PO Q4H PRN PRN Reason: Pain (moderate 4-6) Albuterol/Ipratropium (Albuterol/Ipratropium 3.0-0.5 Mg/3 Ml Neb Soln) 3 ml NEB Q4H PRN PRN Reason: shortness of breath/wheezing Aspirin (Aspirin 81 Mg Tab.Ec) 81 mg PO DAILY [facility] Last Admin: 04/15/21 09:04 Dose: 81 mg Documented by: Bisacodyl (Bisacodyl 5 Mg Tab) 5 mg PO DAILY PRN PRN Reason: Constipation Carbidopa/Levodopa (Carbidopa/Levodopa 25-100 Mg Tab) 1.5 tab PO TID [facility] Last Admin: 04/15/21 20:42 Dose: 1.5 tab Documented by: Cholecalciferol (Cholecalciferol (Vitamin D3) 10 Mcg Tab) 30 mcg PO DAILY [facility] Dexamethasone (Dexamethasone 4 Mg Tab) 4 mg PO DAILY [facility] Stop: 04/23/21 09:01 Last Admin: 04/15/21 09:04 Dose: 4 mg Documented by: Dextrose/Water (50% Dextrose In Water 50 Ml Syringe) 50 ml IVPUSH Q15M PRN PRN Reason: Hypoglycemia Enoxaparin Sodium (Enoxaparin 40 Mg/0.4 Ml Syringe) 40 mg SUBCUT DAILY [facility] Last Admin: 04/15/21 09:07 Dose: 40 mg Documented by: Famotidine (Famotidine 20 Mg Tab) 20 mg PO DAILY [facility] Last Admin: 04/15/21 09:03 Dose: 20 mg Documented by: Glucagon (Glucagon,Human Recombinant 1 Mg Vial) 1 mg IM Q15M PRN PRN Reason: Hypoglycemia Guaifenesin/Phenylephrine HCl (Guaifenesin/Dextromethorphan 100-10 Mg/5 Ml Soln 5 Ml Cup) 5 ml PO Q4H PRN PRN Reason: Cough Hydromorphone HCl (Hydromorphone 0.5 Mg/0.5 Ml Syringe) 0.25 mg IVPUSH Q2H PRN PRN Reason: Pain (severe 7-10) Insulin Human Lispro (Insulin Lispro 100 Units/Ml 3 Ml Vial) 0 unit SUBCUT TIDMEALS [facility]; Protocol Last Admin: 04/15/21 17:51 Dose: Not Given Documented by: Magnesium Hydroxide (Magnesium Hydroxide 400 Mg/5 Ml Susp 30 Ml Cup) 30 ml PO DAILY PRN PRN Reason: Constipation Metoprolol Tartrate (Metoprolol Tartrate 5 Mg/5 Ml Sdv) 5 mg IVPUSH Q4H PRN PRN Reason: Tachycardia Last Admin: 04/13/21 18:01 Dose: 5 mg Documented by: Non-Formulary Medication (Anastrozole [Anastrozole]) 1 mg PO DAILY [facility] Ondansetron HCl (Ondansetron 4 Mg/2 Ml Sdv) 4 mg IVPUSH Q6H PRN PRN Reason: Nausea/Vomiting Polyethylene Glycol (Polyethylene Glycol 3350 Powder 17 Gm Packet) 17 gm PO DAILY PRN PRN Reason: Constipation Propranolol HCl (Propranolol 10 Mg Tab) 30 mg PO BID [facility] Last Admin: 04/15/21 20:41 Dose: 30 mg Documented by: Senna/Docusate Sodium (Docusate Sodium/Sennosides 50-8.6 Mg Tab) 1 tab PO BEDTIME PRN PRN Reason: Constipation Sodium Chloride (Sodium Chloride 0.9% 10 Ml Syringe) 10 ml FLUSH ASDIRECTED PRN PRN Reason: Keep Vein Open Last Admin: 04/15/21 09:05 Dose: 10 ml Documented by: Zolpidem Tartrate (Zolpidem 5 Mg Tab) 5 mg PO BEDTIME PRN PRN Reason: Sleep Discontinued Medications Acetaminophen (Acetaminophen Soln 160 Mg/5 Ml Ud Cup) 500 mg PO QID PRN PRN Reason: Pain Acetaminophen (Acetaminophen 325 Mg Tab) 650 mg PO Q4H PRN PRN Reason: Pain (Mild 1-3)/fever Last Admin: 04/14/21 21:19 Dose: 650 mg Documented by: Acetaminophen (Acetaminophen Soln 160 Mg/5 Ml Ud Cup) 500 mg PO BID PRN PRN Reason: Pain Acetaminophen (Acetaminophen Soln 160 Mg/5 Ml Ud Cup) 480 mg PO BID PRN PRN Reason: Pain Aspirin (Aspirin 81 Mg Tab.Ec) 81 mg PO DAILY [facility] Last Admin: 04/14/21 08:44 Dose: 81 mg Documented by: Aspirin (Aspirin 325 Mg Tab.Ec) 325 mg PO DAILY [facility] Dexamethasone (Dexamethasone 4 Mg/Ml Sdv) 4 mg IVPUSH ONETIME ONE Stop: 04/13/21 16:28 Last Admin: 04/13/21 17:24 Dose: 4 mg Documented by: Famotidine (Famotidine 20 Mg Tab) 20 mg PO BID [facility] Fluorescein Sodium (Fluorescein 1 Mg Ophth Strip) 1 mg EYERT ONETIME ONE Stop: 04/13/21 12:58 Last Admin: 04/13/21 14:40 Dose: Not Given Documented by: Furosemide (Furosemide 20 Mg/2 Ml Vial) 10 mg IVPUSH ONETIME ONE Stop: 04/14/21 12:01 Last Admin: 04/14/21 12:12 Dose: 10 mg Documented by: Gentamicin Sulfate (Gentamicin 0.3% Ophth Soln 5 Ml Bottle) 1 ml EYERT TID [facility] Sodium Chloride (Normal Saline) 1,000 mls @ 999 mls/hr IV .BOLUS ONE Stop: 04/13/21 13:09 Last Admin: 04/13/21 12:24 Dose: 999 mls/hr Documented by: Insulin Human Lispro (Insulin Lispro 100 Units/Ml 3 Ml Vial) 0 unit SUBCUT TIDMEALS PRN; Protocol PRN Reason: Hyperglycemia Metoprolol Tartrate (Metoprolol Tartrate 25 Mg Tab) 12.5 mg PO Q12H [facility] Last Admin: 04/14/21 09:32 Dose: 12.5 mg Documented by: Propranolol HCl (Propranolol 60 Mg Cap.Er) 40 mg PO ONETIME ONE Stop: 04/14/21 09:32 Last Admin: 04/15/21 10:54 Dose: Not Given Documented by: - Exam General: Alert, Oriented HEENT: Pupils Equal, Pupils Reactive, Other (Parkinsonian associated movements noted) Lungs: Clear to Auscultation, Normal Respiratory Effort Cardiovascular: Irregular Rhythm GI/Abdominal Exam: Normal Bowel Sounds, Soft Back Exam: Vertebral Tenderness (Multiple areas of significant tenderness on midline palpation) Extremities: Normal Inspection, Other (Parkinsonian tremor) Peripheral Pulses: 2+: Radial (L), Radial (R) Skin: Warm, Dry Wound/Incisions: Healing Well Neurological: No New Focal Deficit Psy/Mental Status: Alert, Normal Affect - Patient Data Lab Results Last 24 hrs: Laboratory Results - last 24 hr 04/15/21 04/15/21 04/15/21 Range/Units 06:32 06:32 06:32 WBC 5.3 (5.0-10.0) 10^3/uL RBC 3.91 L (4.2-5.4) 10^6/uL Hgb 11.7 L (12.0-16.0) g/dL Hct 35.9 L (37.0-47.0) % MCV 91.8 (80-100) fL MCH 29.9 (27.0-34.0) pg MCHC 32.6 L (33.0-35.0) g/dL Plt Count 123 L (150-450) 10^3/uL Neut % (Auto) 82.6 H (42.2-75.2) % Lymph % (Auto) 8.7 L (20.5-50.1) % [place] % (Auto) 8.7 H (2-8) % Eos % (Auto) 0.0 L (1.0-3.0) % Baso % (Auto) 0.0 (0.0-1.0) % D-Dimer, Quantitative > 5000 H (0-400) ng/mL Sodium 139 (136-145) mmol/L Potassium 4.4 (3.5-5.1) mmol/L Chloride 104 (98-107) mmol/L Carbon Dioxide 27 (21-32) mmol/L Anion Gap 12.4 (7-13) mEq/L BUN 33 H (7-18) mg/dL Creatinine 0.70 (0.55-1.02) mg/dL Est Cr Clr Drug Dosing 36.10 mL/min Estimated GFR (MDRD) > 60 Glucose 93 (70-99) mg/dL POC Glucose (70-99) mg/dL Calcium 8.0 L (8.5-10.1) mg/dL Magnesium 2.2 (1.8-2.4) mg/dL Ferritin (8-252) mg/mL C-Reactive Protein (0.0-0.9) mg/dL 04/15/21 04/15/21 04/15/21 Range/Units 06:32 06:32 08:45 WBC (5.0-10.0) 10^3/uL RBC (4.2-5.4) 10^6/uL Hgb (12.0-16.0) g/dL Hct (37.0-47.0) % MCV (80-100) fL MCH (27.0-34.0) pg MCHC (33.0-35.0) g/dL Plt Count (150-450) 10^3/uL Neut % (Auto) (42.2-75.2) % Lymph % (Auto) (20.5-50.1) % [place] % (Auto) (2-8) % Eos % (Auto) (1.0-3.0) % Baso % (Auto) (0.0-1.0) % D-Dimer, Quantitative (0-400) ng/mL Sodium (136-145) mmol/L Potassium (3.5-5.1) mmol/L Chloride (98-107) mmol/L Carbon Dioxide (21-32) mmol/L Anion Gap (7-13) mEq/L BUN (7-18) mg/dL Creatinine (0.55-1.02) mg/dL Est Cr Clr Drug Dosing mL/min Estimated GFR (MDRD) Glucose (70-99) mg/dL POC Glucose 88 (70-99) mg/dL Calcium (8.5-10.1) mg/dL Magnesium (1.8-2.4) mg/dL Ferritin 373 H (8-252) mg/mL C-Reactive Protein 5.7 H (0.0-0.9) mg/dL 04/15/21 04/15/21 Range/Units 12:03 17:22 WBC (5.0-10.0) 10^3/uL RBC (4.2-5.4) 10^6/uL Hgb (12.0-16.0) g/dL Hct (37.0-47.0) % MCV (80-100) fL MCH (27.0-34.0) pg MCHC (33.0-35.0) g/dL Plt Count (150-450) 10^3/uL Neut % (Auto) (42.2-75.2) % Lymph % (Auto) (20.5-50.1) % [place] % (Auto) (2-8) % Eos % (Auto) (1.0-3.0) % Baso % (Auto) (0.0-1.0) % D-Dimer, Quantitative (0-400) ng/mL Sodium (136-145) mmol/L Potassium (3.5-5.1) mmol/L Chloride (98-107) mmol/L Carbon Dioxide (21-32) mmol/L Anion Gap (7-13) mEq/L BUN (7-18) mg/dL Creatinine (0.55-1.02) mg/dL Est Cr Clr Drug Dosing mL/min Estimated GFR (MDRD) Glucose (70-99) mg/dL POC Glucose 94 114 H (70-99) mg/dL Calcium (8.5-10.1) mg/dL Magnesium (1.8-2.4) mg/dL Ferritin (8-252) mg/mL C-Reactive Protein (0.0-0.9) mg/dL Result Diagrams: 04/16/21 06:30 04/16/21 06:30 Sepsis Event Note - Evaluation Sepsis Screening Result: No Definite Risk - Focused Exam Vital Signs: Vital Signs Temp Pulse Pulse Resp BP BP BP 04/16/21 03:44 97.4 F 63 18 136/76 04/16/21 00:00 97.8 F 84 18 04/15/21 20:41 65 134/84 04/15/21 20:00 97.8 F 66 18 134/84 Pulse Ox 04/16/21 03:44 99 04/16/21 00:00 97 04/15/21 20:41 04/15/21 20:00 100 - Problem List & Annotations (1) COVID-19 SNOMED Code(s): 101626140 Code(s): U07.1 - COVID-19 Status: Acute Current Visit: No (2) Compression fracture of body of thoracic vertebra SNOMED Code(s): 797087241 Code(s): S22.000A - WEDGE COMPRESSION FRACTURE OF UNSP THORACIC VERTEBRA, INIT Status: Acute Current Visit: No (3) Hypoxia SNOMED Code(s): 163052812 Code(s): R09.02 - HYPOXEMIA Status: Acute Current Visit: No (4) Vasovagal syncope SNOMED Code(s): 306577634 Code(s): R55 - SYNCOPE AND COLLAPSE Status: Acute Current Visit: No (5) Parkinsons disease SNOMED Code(s): 70743012 Code(s): G20 - PARKINSON'S DISEASE Status: Chronic Priority: Medium Current Visit: No - Problem List Review Problem List Initiated/Reviewed/Updated: Yes - Assessment Assessment:: 86-year-old female with past medical history of hypertension, urinary incontinence, osteoporosis, history of schizophrenia with tardive dyskinesia, history of lymphedema to the right arm status post right breast mastectomy, right hip fracture status post hip replacement, and moderate to severe Parkinson's disease who was brought in by EMS from the assisted living facility for evaluation of a fall. Found to have new onset atrial flutter, COVID positive with hypoxia and multiple compression deformities on CT. Assessment: Acute: Syncope: Defecation syncope/vasovagal versus atrial flutter with rapid ventricular response; negative for orthostasis New onset of atrial flutter/paroxysmal atrial flutter with thyroid panel within normal limits; HR is currently controlled; CHADVASC score of 4 (age greater than 75, female, and hypertension) and and HASBLED score of 2 (moderate risk for major bleeding) Recurrent fall Generalized weakness and unsteadiness likely due to severe Parkinson's disease COVID-19 infection with hypoxia; she is fully vaccinated Hypoxia Mild thrombocytopenia Back pain status post fall likely exacerbation of compression deformities; CT scan demonstrates no acute fracture Severe compression deformities on T6 and T11 and less severe compression deformity at T2 noted on chest CT scan taken in the emergency department Chronic: Hypertension Urinary incontinence Osteoporosis History of schizophrenia with tardive dyskinesia History of lymphedema to the right arm status post right breast mastectomy Right hip fracture status post hip replacement Moderate to severe Parkinson's disease - Plan Plan:: Plan: # COVID-19 infection with hypoxia -on room air -Routine a.m. labs with no significant concerns -Continue to monitor inflammatory markers - CRP improved -RT to assess and treat -Continue dexamethasone for 10 days - prior provider had started low dose 4 mg - will continue as patient has shown improvement # Syncope -likely combination of vasovagal, fatigue and hypoxia due to COVID-19 and possibly due to new onset aflutter -Carotid U/S with no evidence of stenosis -TTE pending -Fall precautions -PT/OT stating safe for discharge to assisted living -household worker/case management for discharge planning # Elevated glucose levels -likely secondary to steroids -Accu-Chek AC with insulin sliding scale # New onset Aflutter - Patient would be very high risk for major bleeding and falls due to advanced Parkinson's disease - CHADVASC score of 4 with a HASBLED of 2. Previous physician had discussed with her son and indicated no anticoagulation - will discharge on her home ASA - again recent [facility] guidelines indicate either anticoagulation or not and do not recommend aspirin specifically for A. fib - follow up with PCP or half-way provider for further discussion on anticoagulation # Severe compression deformities on T6 and T11 and less severe compression deformity at T2 -will look into chart if patient has diagnosis of osteoporosis - if not will need DEXA -vitamin D level 33 - supplement - calcium supplement -PT/OT -Scheduled Tylenol, as needed hydrocodone, as needed lidocaine patch, will DC IV medications and attempt to transition to a home regimen today Length of stay: Likely less than 96 hours Discharge plan: PT/OT stated patient safe to discharge to assisted living - awaiting TTE results but possible discharge to assisted living today CODE STATUS per patient: DNR/DNI
[2021-04-16 06:57] LABS: ANION GAP 12.5 mEq/L (7-13); CHLORIDE,CL 103 mmol/L (98-107); SODIUM,NA 136 mmol/L (136-145)
[2021-04-16] MEDS ORDERED: Lidocaine 5% 700 MG Patch TOP PRN (07:28)
[2021-04-16] MEDS: Insulin Lispro 100 Units/ML 3 ML Vial SUBCUT SCH ×2 (08:35→12:53)
[2021-04-16] MEDS: Acetaminophen Soln 160 MG/5 ML UD Cup PO SCH (08:37)
[2021-04-16] MEDS: Propranolol 10 MG Tab PO SCH (08:38)
[2021-04-16] MEDS: Dexamethasone 4 MG Tab PO SCH (08:41)
[2021-04-16] MEDS: Famotidine 20 MG Tab PO SCH (08:41)
[2021-04-16] MEDS: Carbidopa/Levodopa 25-100 MG Tab PO SCH ×2 (08:42→13:23)
[2021-04-16] MEDS: Aspirin 81 MG Tab.EC PO SCH (08:42)
[2021-04-16] MEDS: Enoxaparin 40 MG/0.4 ML Syringe SUBCUT SCH (08:43)
[2021-04-16] MEDS ORDERED: Cholecalciferol (Vitamin D3) 10 MCG Tab PO SCH (09:00)
[2021-04-16] MEDS ORDERED: Calcium Carbonate/Vitamin D3 1250 MG-5 MCG Tab PO SCH (09:00)
[2021-04-16 13:59] VITALS: BP 136/88; PULSE 68
--- NOTE | 2021-04-16 14:47 | PCM.DCSUM1 ---
Discharge Summary - Hospital Course Free Text/Narrative:: This is an 86-year-old elderly white female with past medical history of hypertension, urinary incontinence, osteoporosis, history of schizophrenia with tardive dyskinesia, history of lymphedema to the right arm status post right breast mastectomy, right hip fracture status post hip replacement, and moderate to severe Parkinson's disease who was brought in by EMS from the assisted living facility for evaluation of a fall that took place this morning. According to the patient, she just had a bowel movement then she stood up to wash her face at the sink when all of a sudden she got diffusely weak. Following her generalized weakness, she experienced near syncope and subsequently fell on to the floor. She denies any preceding symptoms at that time. No strokelike symptoms or seizure-like activities. She denies losing consciousness. No facial or head injury noted but she had a mid back pain after that incident. She states this would not be the first time she fell at least this week. She denies having fever or chills. No lightheadedness or dizziness. No chest pain or shortness of breath. No signs of upper respiratory infection. No GI complaints but endorses increase in urinary frequency. Patient is unsure if she was vaccinated with COVID-19. Her initial work-up in the emergency department shows a CBC remarkable for RBC of 3.96, MCHC of 31.8, platelet count of 113, neutrophils of 88.7%. Her chemistry is notable for BUN of 24, glucose of 113, AST of 40, alkaline phosphatase of 117, and albumin of 3. Her creatinine, admission, and TSH were all within normal limits. Her UA is negative for urinary tract infection. However her rapid COVID-19 test is positive. Her head CT scan report was read as no definite evidence of acute intracranial pathology but chronic age-related involutional changes. Her chest CT scan was read as nonspecific bilateral pleural effusions but negative for pneumonia or acute pulmonary edema. To note, patient was found hypoxic and they had difficulty getting her oxygen above 80% at the assisted living facility. However in the emergency department, she was found with O2 sat in the upper 80s with respiratory rate in the low 20s. She immediately improved after she was put on 3 L nasal cannula satting anywhere between 92 to 94%. Her CODE STATUS is DNR/DNI. For patient COVID-19 infection she was treated with dexamethasone and had improvement in her oxygenation did not require any oxygen on discharge. For her multiple compression fractures she was given as needed oral medications with good control of her pain. She was not requiring any opioid medications at time of discharge and pain was well controlled Tylenol. She is given vitamin D and calcium supplementation. With her diagnosis of osteoporosis recommend continue supplementation and discussion with PCP about further interventions for osteoporosis. Patient is also on to be new onset atrial flutter. Patient started on propranolol as it also will assist her tremors. Work-up for her new onset atrial flutter included TSH which is normal. TTE showed reduced left ventricular ejection fraction, pulmonary hypertension, severe aortic stenosis. Given patient's elevated [id number] score discussion was had with her son and given her significant fall concerns and significant issues with Parkinson's decision was made to not anticoagulate patient. This will need to be further discussed with her PCP. Diagnosis of pulmonary embolism was also considered however given no significant right heart strain on TTE, significant provement hypoxia with only steroid treatment for COVID-19 infection this was thought to be less likely. Patient was medically stable for discharge to be discharged home. Physical therapy Occupational Therapy evaluate patient and she will require PT and OT in her home. PT will be required for strengthening gait training OT will be ordered for home safety evaluation and ADL training. Recommendations at discharge include Continue dexamethasone for a total of 10 days of therapy for treatment of COVID- 19, isolation precautions Follow-up with PCP for further discussion about anticoagulation given her new onset atrial flutter Discuss possible referral to cardiology given her severe aortic stenosis - recommend discussion again with sons about TTE results PT and OT for home as listed above Diagnosis: Stroke: No - Discharge Data Discharge Date: 04/16/21 Discharge Disposition: Home, W Home Health Agency 06 Condition: Good - Referral to Home Health Date of Face to Face Encounter: 04/16/21 Reason for Homebound Status: Significant Parkinson's disease, multiple comorbidities Primary Care Physician: PCP None Skilled Need: Needs home health PT and OT PT for strengthening gait training, OT for home safety and ADL training. - Discharge Diagnosis/Problem(s) (1) COVID-19 SNOMED Code(s): 607755038 ICD Code: U07.1 - COVID-19 Status: Acute Current Visit: No (2) Compression fracture of body of thoracic vertebra SNOMED Code(s): 268330303 ICD Code: S22.000A - WEDGE COMPRESSION FRACTURE OF UNSP THORACIC VERTEBRA, INIT Status: Acute Current Visit: No (3) Hypoxia SNOMED Code(s): 084430434 ICD Code: R09.02 - HYPOXEMIA Status: Acute Current Visit: No (4) Vasovagal syncope SNOMED Code(s): 312380363 ICD Code: R55 - SYNCOPE AND COLLAPSE Status: Acute Current Visit: No (5) Parkinsons disease SNOMED Code(s): 75639436 ICD Code: G20 - PARKINSON'S DISEASE Status: Chronic Priority: Medium Current Visit: No - Patient Summary/Data Consults: Consultations 04/13/21 15:26 Consult to Case Management/Clothing Sales Assistant [CONS] Routine OT Evaluation and Treatment [CONS] Routine PT Evaluation and Treatment [CONS] Routine Respiratory Care Assess and Treatment [CONS] Routine - Patient Instructions Diet: Heart Healthy Diet Activity: As Tolerated - Discharge Plan *PRESCRIPTION DRUG MONITORING PROGRAM REVIEWED*: Not Applicable *COPY OF PRESCRIPTION DRUG MONITORING REPORT IN PATIENT ELIZABETH: Not Applicable Prescriptions/Med Rec: dexAMETHasone [Dexamethasone] 4 mg PO DAILY 7 Days tablet Propranolol [Inderal] 30 mg PO BID 30 Days tablet Home Medications: Home Meds Anastrozole 1 mg PO DAILY 02/07/16 [History] Aspirin [Halfprin] 81 mg PO DAILY 02/23/17 [History] Cholecalciferol (Vitamin D3) [D--STEFFEN Drops] 1,200 units PO DAILY 10/04/18 [History] Magnesium Hydroxide [Milk of Magnesia] 30 ml PO DAILY PRN 04/13/21 [History] Sennosides [Senokot] 8.6 mg PO DAILY 04/13/21 [History] polyethylene glycoL 3350 [MiraLAX] 17 gm PO DAILY PRN 04/13/21 [History] Acetaminophen 480 mg PO BID 04/15/21 [History] Acetaminophen [Acetaminophen Extra Strength] 500 mg PO Q8H PRN 04/15/21 [History] Carbidopa/Levodopa [Carbidopa-Levodopa 25-100 Tab] 1.5 tab PO TID 04/15/21 [History] Acetaminophen [Tylenol Extra Strength] 500 mg PO Q8H PRN tablet 04/16/21 [Rx] Propranolol [Inderal] 30 mg PO BID 30 Days tablet 04/16/21 [Rx] dexAMETHasone [Dexamethasone] 4 mg PO DAILY 7 Days tablet 04/16/21 [Rx] Patient Handouts: Fall Prevention in the Home, Adult, [id number], Near- Syncope, [id number], Syncope, [id number] - Discharge Summary/Plan Comment DC Time >30 min.: Yes Total # of Minutes for Discharge Time: 30 minutes - Patient Data Vitals - Most Recent: Last Vital Signs Temp 98.3 F 04/16/21 12:00 Pulse 68 04/16/21 12:00 Resp 16 04/16/21 12:00 BP 136/88 04/16/21 12:00 Pulse Ox 94 L 04/16/21 12:00 Orthostatic Blood Pressure [ 115/67 Standing] Orthostatic Blood Pressure [ 135/77 Sitting] Orthostatic Blood Pressure [ 132/87 Supine] Weight - Most Recent: 85 lb 12.8 oz I&O - Last 24 hours: Intake & Output 04/15/21 04/16/21 04/16/21 22:59 06:59 14:59 Intake Total 250 400 Balance 250 400 Lab Results - Last 24 hrs: Laboratory Results - last 24 hr 04/13/21 04/15/21 04/16/21 Range/Units 12:17 17:22 06:30 WBC 4.2 L (5.0-10.0) 10^3/uL RBC 3.83 L (4.2-5.4) 10^6/uL Hgb 11.4 L (12.0-16.0) g/dL Hct 35.6 L (37.0-47.0) % MCV 93.0 (80-100) fL MCH 29.8 (27.0-34.0) pg MCHC 32.0 L (33.0-35.0) g/dL Plt Count 124 L (150-450) 10^3/uL Neut % (Auto) 78.0 H (42.2-75.2) % Lymph % (Auto) 10.1 L (20.5-50.1) % [place] % (Auto) 11.5 H (2-8) % Eos % (Auto) 0.2 L (1.0-3.0) % Baso % (Auto) 0.2 (0.0-1.0) % Sodium (136-145) mmol/L Potassium (3.5-5.1) mmol/L Chloride (98-107) mmol/L Carbon Dioxide (21-32) mmol/L Anion Gap (7-13) mEq/L BUN (7-18) mg/dL Creatinine (0.55-1.02) mg/dL Est Cr Clr Drug Dosing mL/min Estimated GFR (MDRD) Glucose (70-99) mg/dL POC Glucose 114 H (70-99) mg/dL Calcium (8.5-10.1) mg/dL Magnesium (1.8-2.4) mg/dL C-Reactive Protein (0.0-0.9) mg/dL Vitamin D 25-Hydroxy 33 (30-100) ng/mL 04/16/21 04/16/21 04/16/21 Range/Units 06:30 08:25 10:57 WBC (5.0-10.0) 10^3/uL RBC (4.2-5.4) 10^6/uL Hgb (12.0-16.0) g/dL Hct (37.0-47.0) % MCV (80-100) fL MCH (27.0-34.0) pg MCHC (33.0-35.0) g/dL Plt Count (150-450) 10^3/uL Neut % (Auto) (42.2-75.2) % Lymph % (Auto) (20.5-50.1) % [place] % (Auto) (2-8) % Eos % (Auto) (1.0-3.0) % Baso % (Auto) (0.0-1.0) % Sodium 136 (136-145) mmol/L Potassium 4.5 (3.5-5.1) mmol/L Chloride 103 (98-107) mmol/L Carbon Dioxide 25 (21-32) mmol/L Anion Gap 12.5 (7-13) mEq/L BUN 29 H (7-18) mg/dL Creatinine 0.61 (0.55-1.02) mg/dL Est Cr Clr Drug Dosing 41.43 mL/min Estimated GFR (MDRD) > 60 Glucose 97 (70-99) mg/dL POC Glucose 85 109 H (70-99) mg/dL Calcium 8.1 L (8.5-10.1) mg/dL Magnesium 2.3 (1.8-2.4) mg/dL C-Reactive Protein 3.5 H (0.0-0.9) mg/dL Vitamin D 25-Hydroxy (30-100) ng/mL Med Orders - Current: Current Medications Acetaminophen (Acetaminophen Soln 160 Mg/5 Ml Ud Cup) 480 mg PO BID [facility] Last Admin: 04/16/21 08:37 Dose: 480 mg Documented by: Acetaminophen (Acetaminophen 500 Mg Tab) 500 mg PO Q8H PRN PRN Reason: back pain Hydrocodone Bitart/Acetaminophen (Acetaminophen/Hydrocodone 325-10 Mg Tab) 1 tab PO Q4H PRN PRN Reason: Pain (moderate 4-6) Albuterol/Ipratropium (Albuterol/Ipratropium 3.0-0.5 Mg/3 Ml Neb Soln) 3 ml NEB Q4H PRN PRN Reason: shortness of breath/wheezing Aspirin (Aspirin 81 Mg Tab.Ec) 81 mg PO DAILY [facility] Last Admin: 04/16/21 08:42 Dose: 81 mg Documented by: Bisacodyl (Bisacodyl 5 Mg Tab) 5 mg PO DAILY PRN PRN Reason: Constipation Calcium Carbonate (Calcium Carbonate/Vitamin D3 1250 Mg-5 Mcg Tab) 1 tab PO DAILY [facility] Last Admin: 04/16/21 08:41 Dose: 1 tab Documented by: Carbidopa/Levodopa (Carbidopa/Levodopa 25-100 Mg Tab) 1.5 tab PO TID [facility] Last Admin: 04/16/21 13:23 Dose: 1.5 tab Documented by: Cholecalciferol (Cholecalciferol (Vitamin D3) 10 Mcg Tab) 30 mcg PO DAILY [facility] Last Admin: 04/16/21 08:42 Dose: 30 mcg Documented by: Dexamethasone (Dexamethasone 4 Mg Tab) 4 mg PO DAILY [facility] Stop: 04/23/21 09:01 Last Admin: 04/16/21 08:41 Dose: 4 mg Documented by: Dextrose/Water (50% Dextrose In Water 50 Ml Syringe) 50 ml IVPUSH Q15M PRN PRN Reason: Hypoglycemia Enoxaparin Sodium (Enoxaparin 40 Mg/0.4 Ml Syringe) 40 mg SUBCUT DAILY [facility] Last Admin: 04/16/21 08:43 Dose: 40 mg Documented by: Famotidine (Famotidine 20 Mg Tab) 20 mg PO DAILY [facility] Last Admin: 04/16/21 08:41 Dose: 20 mg Documented by: Glucagon (Glucagon,Human Recombinant 1 Mg Vial) 1 mg IM Q15M PRN PRN Reason: Hypoglycemia Guaifenesin/Phenylephrine HCl (Guaifenesin/Dextromethorphan 100-10 Mg/5 Ml Soln 5 Ml Cup) 5 ml PO Q4H PRN PRN Reason: Cough Hydromorphone HCl (Hydromorphone 0.5 Mg/0.5 Ml Syringe) 0.25 mg IVPUSH Q2H PRN PRN Reason: Pain (severe 7-10) Insulin Human Lispro (Insulin Lispro 100 Units/Ml 3 Ml Vial) 0 unit SUBCUT TIDMEALS [facility]; Protocol Last Admin: 04/16/21 12:53 Dose: Not Given Documented by: Lidocaine (Lidocaine 5% 700 Mg Patch) 700 mg TOP DAILY PRN PRN Reason: Pain Last Admin: 04/16/21 08:58 Dose: 700 mg Documented by: Magnesium Hydroxide (Magnesium Hydroxide 400 Mg/5 Ml Susp 30 Ml Cup) 30 ml PO DAILY PRN PRN Reason: Constipation Metoprolol Tartrate (Metoprolol Tartrate 5 Mg/5 Ml Sdv) 5 mg IVPUSH Q4H PRN PRN Reason: Tachycardia Last Admin: 04/13/21 18:01 Dose: 5 mg Documented by: Miscellaneous Information (Remove Patch) 1 ea TRDERM Q24H [facility] Non-Formulary Medication (Anastrozole [Anastrozole]) 1 mg PO DAILY [facility] Ondansetron HCl (Ondansetron 4 Mg/2 Ml Sdv) 4 mg IVPUSH Q6H PRN PRN Reason: Nausea/Vomiting Polyethylene Glycol (Polyethylene Glycol 3350 Powder 17 Gm Packet) 17 gm PO DAILY PRN PRN Reason: Constipation Propranolol HCl (Propranolol 10 Mg Tab) 30 mg PO BID [facility] Last Admin: 04/16/21 08:38 Dose: 30 mg Documented by: Senna/Docusate Sodium (Docusate Sodium/Sennosides 50-8.6 Mg Tab) 1 tab PO BEDTIME PRN PRN Reason: Constipation Sodium Chloride (Sodium Chloride 0.9% 10 Ml Syringe) 10 ml FLUSH ASDIRECTED PRN PRN Reason: Keep Vein Open Last Admin: 04/15/21 09:05 Dose: 10 ml Documented by: Zolpidem Tartrate (Zolpidem 5 Mg Tab) 5 mg PO BEDTIME PRN PRN Reason: Sleep Discontinued Medications Acetaminophen (Acetaminophen Soln 160 Mg/5 Ml Ud Cup) 500 mg PO QID PRN PRN Reason: Pain Acetaminophen (Acetaminophen 325 Mg Tab) 650 mg PO Q4H PRN PRN Reason: Pain (Mild 1-3)/fever Last Admin: 04/14/21 21:19 Dose: 650 mg Documented by: Acetaminophen (Acetaminophen Soln 160 Mg/5 Ml Ud Cup) 500 mg PO BID PRN PRN Reason: Pain Acetaminophen (Acetaminophen Soln 160 Mg/5 Ml Ud Cup) 480 mg PO BID PRN PRN Reason: Pain Aspirin (Aspirin 81 Mg Tab.Ec) 81 mg PO DAILY [facility] Last Admin: 04/14/21 08:44 Dose: 81 mg Documented by: Aspirin (Aspirin 325 Mg Tab.Ec) 325 mg PO DAILY [facility] Dexamethasone (Dexamethasone 4 Mg/Ml Sdv) 4 mg IVPUSH ONETIME ONE Stop: 04/13/21 16:28 Last Admin: 04/13/21 17:24 Dose: 4 mg Documented by: Famotidine (Famotidine 20 Mg Tab) 20 mg PO BID [facility] Fluorescein Sodium (Fluorescein 1 Mg Ophth Strip) 1 mg EYERT ONETIME ONE Stop: 04/13/21 12:58 Last Admin: 04/13/21 14:40 Dose: Not Given Documented by: Furosemide (Furosemide 20 Mg/2 Ml Vial) 10 mg IVPUSH ONETIME ONE Stop: 04/14/21 12:01 Last Admin: 04/14/21 12:12 Dose: 10 mg Documented by: Gentamicin Sulfate (Gentamicin 0.3% Ophth Soln 5 Ml Bottle) 1 ml EYERT TID [facility] Sodium Chloride (Normal Saline) 1,000 mls @ 999 mls/hr IV .BOLUS ONE Stop: 04/13/21 13:09 Last Admin: 04/13/21 12:24 Dose: 999 mls/hr Documented by: Insulin Human Lispro (Insulin Lispro 100 Units/Ml 3 Ml Vial) 0 unit SUBCUT TIDMEALS PRN; Protocol PRN Reason: Hyperglycemia Metoprolol Tartrate (Metoprolol Tartrate 25 Mg Tab) 12.5 mg PO Q12H [facility] Last Admin: 04/14/21 09:32 Dose: 12.5 mg Documented by: Propranolol HCl (Propranolol 60 Mg Cap.Er) 40 mg PO ONETIME ONE Stop: 04/14/21 09:32 Last Admin: 04/15/21 10:54 Dose: Not Given Documented by:
== END 2021-04-16 15:20 | disposition home health service (06) | DRG 178 ==
LOC: DL.ED 10:10 → DL.MS 14:47 → DL.ED 14:57
PROVIDERS: ADMIT Internal Medicine; ATTEND Internal Medicine
PROC: 8E0ZXY6 Isolation (ICD-10-PCS; principal; 2021-04-13)
PROC: 3E0DX3Z Introduction of Anti-inflammatory into Mouth and Pharynx, External Approach (ICD-10-PCS; principal; 2021-04-13)
DX: U07.1 COVID-19 (principal); R09.02 Hypoxemia; S22.009A Unspecified fracture of unspecified thoracic vertebra, initial encounter for closed fracture; W18.30XA Fall on same level, unspecified, initial encounter; I48.91 Unspecified atrial fibrillation; S22.080A Wedge compression fracture of T11-T12 vertebra, initial encounter for closed fracture; S22.050A Wedge compression fracture of T5-T6 vertebra, initial encounter for closed fracture; J90 Pleural effusion, not elsewhere classified; I10 Essential (primary) hypertension; Z85.3 Personal history of malignant neoplasm of breast; R32 Unspecified urinary incontinence; M81.0 Age-related osteoporosis without current pathological fracture; Z66 Do not resuscitate; F20.9 Schizophrenia, unspecified; G24.01 Drug induced subacute dyskinesia; I89.0 Lymphedema, not elsewhere classified; Z96.641 Presence of right artificial hip joint; G20 Parkinson's disease; W19.XXXA Unspecified fall, initial encounter; I27.20 Pulmonary hypertension, unspecified; I35.0 Nonrheumatic aortic (valve) stenosis; D69.6 Thrombocytopenia, unspecified; R73.9 Hyperglycemia, unspecified; R74.8 Abnormal levels of other serum enzymes; E88.09 Other disorders of plasma-protein metabolism, not elsewhere classified; Z79.82 Long term (current) use of aspirin; Z90.11 Acquired absence of right breast and nipple; Z79.899 Other long term (current) drug therapy
CPT/HCPCS: 36415; 70450; 71250; 80053; 81001; 82306; 82728; 83615; 83735; 84439; 84443; 85025; 85379; 85651; 86140; 93005; 99285; J7030; U0002; 71045; 80048; 82947; 93306; 93880; 97166-GO; A9270-GY; J1100; J1650; J1940; J3490; J8540